=== PATIENT | female | born 1985 | race Caucasian/White ===

== ENCOUNTER 2016-07-09 18:15 | Emergency (ER) | payer MEDICAID ==
[2016-07-09 19:13] VITALS: BP 118/78
[2016-07-09] MEDS ORDERED: predniSONE TAB* 20 MG PO ONE (19:43)
--- NOTE | 2016-07-09 19:48 | UC ---
Respiratory Complaint HPI - HPI Summary HPI Summary: Coughing x 2 weeks. Denies nasal congestion or ST, has had 2 temps above 99 but below 100. Has asthma, is using inhaler 1-2 times per day. - History of Current Complaint Chief Complaint: UCGeneralIllness Stated Complaint: NAUSEA, DIARRHEA, COUGH Time Seen by Provider: 07/09/16 19:31 Hx Obtained From: Patient Hx Last Menstrual Period: 04/08/16 ?: No Onset/Duration: Gradual Onset, Lasting Weeks Timing: Constant Severity Initially: Mild Severity Currently: Mild Character: Cough: Productive Aggravating Factors: Exertion, Deep Breaths Alleviating Factors: Bronchodilator Associated Signs And Symptoms: Negative: Fever, Chills, URI, Nasal Congestion - Allergies/Home Medications Allergies/Adverse Reactions: Allergies Allergy/AdvReac Type Severity Reaction Status Date / Time Metoprolol Allergy Unknown Rash Verified 07/09/16 19:13 Trazodone Allergy Unknown Unknown Verified 07/09/16 19:13 Reaction Details Amoxicillin Allergy Unknown Verified 07/09/16 19:13 Reaction Details Cefaclor Allergy Unknown Verified 07/09/16 19:13 Reaction Details Clavulanic Acid Allergy Unknown Verified 07/09/16 19:13 Reaction Details Lamotrigine Allergy Rash Verified 07/09/16 19:13 [place] Flavor Allergy Unknown Verified 07/09/16 19:13 Reaction Details Penicillins Allergy Unknown Verified 07/09/16 19:13 Reaction Details Quetiapine Allergy Tachycardia Verified 07/09/16 19:13 Sulfa Antibiotics Allergy Rash Verified 07/09/16 19:13 Sulfamethoxazole Allergy Rash Verified 07/09/16 19:13 w/Trimethoprim [From Bactrim] Risperidone [From Risperdal] AdvReac Unknown Rash Verified 07/09/16 19:13 PMH/Surg Hx/FS Hx/Imm Hx Endocrine History Of: Denies: Diabetes Cardiovascular History Of: Denies: Hypertension, Pacemaker/ICD, Congestive Heart Failure, Deep Vein Thrombosis Respiratory History Of: Reports: Asthma, Pneumonia Denies: COPD, Pulmonary Embolism GI/ History Of: Denies: Ulcer, Gastrointestinal Bleed, Gall Bladder Disease, Renal Disease Neurological History Of: Denies: TIA, CVA, Dementia, Seizures, Migraine - patient denied Psychological History Of: Reports: Anxiety, Depression, Bipolar Disorder, Schizophrenia Cancer History Of: Denies: Lung Cancer Other History Of: Negative For: Anticoagulant Therapy - Surgical History Surgical History: Yes Surgery Procedure, Year, and Place: Left Knee. Left Foot (2009) - Family History Known Family History: Positive: Hypertension, Diabetes, Other - mother from cancer, HLD - Social History Lives: Alone Alcohol Use: states she has approximately 1-2 alcoholic drinks about 2-4 times per month Alcohol Amount: 1-2 drinks Substance Use Type: None Substance Use Comment - Amount & Last Used: Denies. Smoking Status (MU): Heavy Every Day Tobacco Smoker Type: Cigarettes Amount Used/How Often: reports 1 PPD Length of Time of Smoking/Using Tobacco: SINCE AGE 11 Y.O. Have You Smoked in the Last Year: Yes Household Exposure Type: Cigarettes - Immunization History Most Recent Influenza Vaccination: 2013 Most Recent Tetanus Shot: UTD Most Recent Pneumonia Vaccination: 2013 Review of Systems Constitutional: Negative Skin: Negative Eyes: Negative ENT: Negative Respiratory: Shortness Of Breath, Cough Cardiovascular: Negative Gastrointestinal: Negative Genitourinary: Negative Motor: Negative Neurovascular: Negative Musculoskeletal: Negative Neurological: Negative Psychological: Negative All Other Systems Reviewed And Are Negative: Yes Physical Exam Triage Information Reviewed: Yes Appearance: Well-Appearing, No Pain Distress, Obese Vital Signs: Initial Vital Signs Temp 98.5 F 07/09/16 19:09 Pulse 104 07/09/16 19:09 Resp 16 07/09/16 19:09 BP 118/78 07/09/16 19:09 Pulse Ox 99 07/09/16 19:09 Vital Signs Reviewed: Yes Eye Exam: Normal Eyes: Positive: Conjunctiva Clear ENT Exam: Normal ENT: Positive: Normal ENT inspection, Hearing grossly normal, Pharynx normal, TMs normal Dental Exam: Normal Neck exam: Normal Neck: Positive: Supple, Nontender, No Lymphadenopathy Respiratory: Positive: Chest non-tender, Lungs clear, Normal breath sounds, No respiratory distress, No accessory muscle use Cardiovascular Exam: Normal Cardiovascular: Positive: RRR, No Murmur Musculoskeletal Exam: Normal Neurological Exam: Normal Psychological Exam: Normal Skin Exam: Normal UC Diagnostic Evaluation - Laboratory O2 Sat by Pulse Oximetry: 99 Respiratory Course/Dx - Differential Dx/Diagnosis Provider Diagnoses: post viral cough. bronchospasm Discharge - Discharge Plan Condition: Stable Disposition: HOME Prescriptions: Benzonatate CAP* [Tessalon CAP*] 100 mg PO TID PRN #30 cap PRN Reason: Cough predniSONE TAB* [Deltasone TAB*] 50 mg PO DAILY #5 tab Patient Education Materials: Bronchospasm (ED) Referrals: Pam MCFARLANE,Collins Conte [Primary Care Provider] - If Needed Additional Instructions: POST-VIRAL COUGH: A very common cause of persistent cough is called "post-viral cough syndrome." During a viral infection, the virus can irritate your bronchial tubes. Then even after the infection is over, you may continue to cough. Your cough is left over from your recent viral infection. You do not show evidence of a continuing viral infection,bronchitis or pneumonia. You do not need antibiotics at this time. It may be helpful to use inhaled cool mist, throat lozenges, cough medication or bronchial inhalers to open up your bronchial tubes. We expect you will be improved in a week or two. Please get back to us if you have fever, chest pain, colored sputum, blood in the sputum, wheezing or shortness of breath.
== END 2016-07-09 19:51 | disposition home or self-care (01) ==
LOC: UCCORT 18:15
DX: R05 Cough (principal); J98.01 Acute bronchospasm; Z32.02 Encounter for pregnancy test, result negative; Z88.1 Allergy status to other antibiotic agents; Z88.0 Allergy status to penicillin; Z88.2 Allergy status to sulfonamides; Z88.8 Allergy status to other drugs, medicaments and biological substances; F17.210 Nicotine dependence, cigarettes, uncomplicated
CPT/HCPCS: 81025; 99212; G0463; J7512

== ENCOUNTER 2016-07-29 19:27 | Inpatient (IN) | payer MEDICAID ==
[2016-07-29] MEDS ORDERED: Mouth Piece, Nicotine* 1 EACH CARTRIDGE INH PRN (20:04)
--- NOTE | 2016-07-29 21:38 | ED ---
Ck Fine Billy, scribed for Bc Simon MD on 07/29/16 at 2021 . Psychiatric Complaint - HPI Summary HPI Summary: Patient is a 31 year-old female coming to [facility] with her complaining of SI, depression, anxiety, and fearfulness. She states that her symptoms are very similar to previous episodes. However, she states that she is not hearing voices as usual. - History Of Current Complaint Chief Complaint: EDMentalHealth Time Seen by Provider: 07/29/16 20:18 Accompanied By: Hx Obtained From: Patient Hx Last Menstrual Period: 04/08/16 Onset/Duration: Gradual Onset Timing: Constant Severity Initially: Moderate Severity Currently: Moderate Character: Depressed, Fearful, Anxious Aggravating Factor(s): Nothing Alleviating Factor(s): Nothing Associated Signs And Symptoms: Negative: Hallucinating Related History: Positive For: Prior Psychiatric Issues Has Suicidal: Reports: Thoughts - Allergies/Home Medications Allergies/Adverse Reactions: Allergies Allergy/AdvReac Type Severity Reaction Status Date / Time Metoprolol Allergy Unknown Rash Verified 07/09/16 19:13 Trazodone Allergy Unknown Unknown Verified 07/09/16 19:13 Reaction Details Amoxicillin Allergy Unknown Verified 07/09/16 19:13 Reaction Details Cefaclor Allergy Unknown Verified 07/09/16 19:13 Reaction Details Clavulanic Acid Allergy Unknown Verified 07/09/16 19:13 Reaction Details Lamotrigine Allergy Rash Verified 07/09/16 19:13 [place] Flavor Allergy Unknown Verified 07/09/16 19:13 Reaction Details Penicillins Allergy Unknown Verified 07/09/16 19:13 Reaction Details Quetiapine Allergy Tachycardia Verified 07/09/16 19:13 Sulfa Antibiotics Allergy Rash Verified 07/09/16 19:13 Sulfamethoxazole Allergy Rash Verified 07/09/16 19:13 w/Trimethoprim [From Bactrim] Risperidone [From Risperdal] AdvReac Unknown Rash Verified 07/09/16 19:13 Home Medications: Home Medications Albuterol HFA INHALER* [Ventolin HFA Inhaler*] 1 puff INH Q4H PRN 07/29/16 [ History Confirmed 07/29/16] PMH/Surg Hx/FS Hx/Imm Hx Endocrine/Hematology History: Denies: Hx Anticoagulant Therapy, Hx Diabetes, Hx Anemia, Hx Unexplained Bleeding Cardiovascular History: Reports: Other Cardiovascular Problems/Disorders - chest pain Respiratory History: Reports: Hx Asthma, Hx Chronic Bronchitis, Hx Pneumonia, Other Respiratory Problems/Disorders - Bronchitis GI History: Reports: Hx Gastroesophageal Reflux Disease History: Denies: Hx Renal Disease Musculoskeletal History: Reports: Hx Arthritis - Left shoulder, Hx Fibromyalgia - denies currently bothering her, Hx Tendonitis Sensory History: Reports: Hx Contacts or Glasses Opthamlomology History: Reports: Hx Contacts or Glasses Neurological History: Reports: Hx Headaches Psychiatric History: Reports: Hx Anxiety, Hx Attention Deficit Hyperactivity Disorder, Hx Depression, Hx Post Traumatic Stress Disorder, Hx Inpatient Treatment, Hx Community Mental Health Tx, Hx Schizophrenia, Hx Bipolar Disorder , Hx Suicide Attempt, Hx of Violent Episodes Against Others - Surgical History Surgery Procedure, Year, and Place: Left Knee. Left Foot (2009) Hx Anesthesia Reactions: No Infectious Disease History: Yes Infectious Disease History: Reports: Hx of Known/Suspected MRSA - 3 years ago Denies: Hx Hepatitis, Hx Shingles, Hx Tuberculosis, Hx Known/Suspected VRE, Hx Known/Suspected VRSA, History Other Infectious Disease, Traveled Outside the [place] in Last 30 Days - Family History Known Family History: Positive: Hypertension, Diabetes, Other - mother from cancer, HLD - Social History Alcohol Use: Occasionally Alcohol Amount: 1-2 drinks Hx Substance Use: No Substance Use Type: Reports: None Substance Use Comment - Amount & Last Used: Denies. Hx Tobacco Use: Yes Smoking Status (MU): Heavy Every Day Tobacco Smoker Type: Cigarettes Amount Used/How Often: reports 1 PPD Length of Time of Smoking/Using Tobacco: SINCE AGE 11 Y.O. Have You Smoked in the Last Year: Yes Review of Systems All Other Systems Reviewed And Are Negative: Yes Physical Exam - Summary Physical Exam Summary: VITAL SIGNS: Reviewed. GENERAL: Patient is an obese female who is lying comfortable in the stretcher. Patient is not in any acute respiratory distress. HEAD AND FACE: No signs of trauma. No ecchymosis, hematomas or skull depressions. No sinus tenderness. EYES: PERRLA, EOMI x 2, No injected conjunctiva, no nystagmus. EARS: Hearing grossly intact. Ear canals and tympanic membranes are within normal limits. MOUTH: Oropharynx within normal limits. NECK: Supple, trachea is midline, no adenopathy, no JVD, no carotid bruit, no c- spine tenderness, neck with full ROM. CHEST: Symmetric, no tenderness at palpation LUNGS: Clear to auscultation bilaterally. No wheezing or crackles. CVS: Regular rate and rhythm, S1 and S2 present, no murmurs or gallops appreciated. ABDOMEN: Soft, non-tender. No signs of distention. No rebound no guarding, and no masses palpated. Bowel sounds are normal. EXTREMITIES: FROM in all major joints, no edema, no cyanosis or clubbing. NEURO: Alert and oriented x 3. No acute neurological deficits. Speech is normal and follows commands. SKIN: Dry and warm PSYCH: Depressed, quiet, positive suicidal thoughts and plan. No homicidal thoughts or plan. No signs of psychosis or pressure speech. No tangential speech. Triage Information Reviewed: Yes Vital Signs On Initial Exam: Initial Vitals Temp Pulse Resp BP Pulse Ox 98.4 F 117 16 153/87 100 07/29/16 19:38 07/29/16 19:38 07/29/16 19:38 07/29/16 19:38 07/29/16 19:38 Vital Signs Reviewed: Yes - Roddy Coma Scale Coma Scale Total: 15 Diagnostics - Vital Signs Vital Signs Temp Pulse Resp BP Pulse Ox 07/29/16 19:38 98.4 F 117 16 153/87 100 - Laboratory Lab Statement: Any lab studies that have been ordered have been reviewed, and results considered in the medical decision making process. Course/Dx - Course Assessment/Plan: Patient is a 31 year-old female coming to [facility] with her complaining of SI, depression, anxiety, and fearfulness. She states that her symptoms are very similar to previous episodes. However, she states that she is not hearing voices as usual. Medically clear for MHE. No bloodwork was done because it had already been done yesterday. Seen by Dr. Page, who admitted the patient to the psychiatric unit for further workup and management. - Differential Dx/Clinical Impression Differential Diagnosis/HQI/PQRI: Positive: Depression, Suicide Attempt, Suicidal Ideation Provider Diagnosis: Suicidal ideation Discharge - Discharge Plan Condition: Stable Disposition: ADMITTED TO [facility] documentation as recorded by the Ck pringle Billy accurately reflects the service I personally performed and the decisions made by me, Bc Simon MD.
[2016-07-30 08:25] VITALS: BP 126/84
[2016-07-30] MEDS: Nicotine Inhaler* 10 MG AMP INH PRN ×3 (09:22→16:42)
[2016-07-30] MEDS ORDERED: hydrOXYzine HCL TAB* 50 MG PO PRN (14:18)
[2016-07-30] MEDS ORDERED: Albuterol HFA INHALER* 8 gm MDI INH PRN (14:18)
[2016-07-30] MEDS: Gabapentin CAP(*) 300 MG PO SCH ×2 (14:38→20:11)
[2016-07-30] MEDS: clonazePAM TAB(*) 1 MG PO SCH (14:39)
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
[2016-07-30] MEDS: Ibuprofen TAB* 400 MG PO PRN (18:36)
[2016-07-30] MEDS: Haloperidol TAB* 5 MG PO SCH (20:10)
[2016-07-30] MEDS: Benztropine TAB* 1 MG PO SCH (20:11)
[2016-07-30] MEDS ORDERED: chlorproMAZINE TAB* 200 MG PO SCH (21:00)
[2016-07-31] MEDS: Benztropine TAB* 1 MG PO SCH (08:32)
[2016-07-31] MEDS: Haloperidol TAB* 5 MG PO SCH (08:33)
[2016-07-31] MEDS: clonazePAM TAB(*) 1 MG PO SCH (08:34)
[2016-07-31] MEDS: Gabapentin CAP(*) 300 MG PO SCH ×2 (08:34→13:44)
[2016-07-31] MEDS: Nicotine Inhaler* 10 MG AMP INH PRN ×3 (08:36→15:32)
[2016-07-31] MEDS: Ibuprofen TAB* 400 MG PO PRN (09:17)
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
== END 2016-07-31 16:15 | disposition home or self-care (01) | DRG 750 ==
LOC: ED 19:27 → BSU 20:14
PROVIDERS: ADMIT Psychiatry & Neurology Psychiatry; ATTEND Psychiatry & Neurology Psychiatry
DX: F25.1 Schizoaffective disorder, depressive type (principal); R45.851 Suicidal ideations; F43.10 Post-traumatic stress disorder, unspecified; F60.3 Borderline personality disorder; J45.909 Unspecified asthma, uncomplicated; F41.9 Anxiety disorder, unspecified; G47.00 Insomnia, unspecified; K21.9 Gastro-esophageal reflux disease without esophagitis; M13.812 Other specified arthritis, left shoulder; M79.7 Fibromyalgia; F90.9 Attention-deficit hyperactivity disorder, unspecified type; F31.9 Bipolar disorder, unspecified; F17.210 Nicotine dependence, cigarettes, uncomplicated; Z63.9 Problem related to primary support group, unspecified; Z91.410 Personal history of adult physical and sexual abuse; Z88.0 Allergy status to penicillin; Z88.2 Allergy status to sulfonamides; Z88.8 Allergy status to other drugs, medicaments and biological substances; Z88.1 Allergy status to other antibiotic agents; Z87.01 Personal history of pneumonia (recurrent); Z80.9 Family history of malignant neoplasm, unspecified; Z83.3 Family history of diabetes mellitus; Z82.49 Family history of ischemic heart disease and other diseases of the circulatory system
CPT/HCPCS: 99222; 99238; A9270-GY

== ENCOUNTER 2016-08-21 21:09 | Emergency (ER) | payer MEDICAID ==
[2016-08-21 22:03] LABS: Hematocrit 42 % (35-47); Hemoglobin 13.8 g/dl (12.0-16.0); Mean Corpuscular HGB Conc 33 g/dl (31-36); Mean Corpuscular Hemoglobin 27 pg (27-31); Mean Corpuscular Volume 83 fL (80-97); Mean Platelet Volume 8 um3 (7.4-10.4); Red Blood Count 5.03 10^6/ul (4.0-5.4); Red Cell Distribution Width 14 % (10.5-15); White Blood Count 15.4 10^3/ul (3.5-10.8)
[2016-08-21 22:08] LABS: Urine Bacteria 1+ (Absent); Urine Bilirubin Negative (Negative); Urine Glucose Negative (Negative); Urine Nitrite Negative (Negative)
[2016-08-21 22:15] LABS: ALT 16 U/L (7-52); AST 22 U/L (13-39); Albumin 4.3 g/dL (3.2-5.2); Alkaline Phosphatase 89 U/L (34-104); Anion Gap 9 mmol/L (2-11); BUN/Creatinine Ratio 8.7 (8-20); Blood Urea Nitrogen 8 mg/dL (6-24); CO2 Carbon Dioxide 24 mmol/L (22-32); Calcium 9.9 mg/dL (8.6-10.3); Chloride 103 mmol/L (101-111); EGFR African American 92.2 (>60); EGFR Non-African American 71.7 (>60); Globulin 3.2 g/dL (2-4); Glucose 139 mg/dL (70-100); Potassium 3.6 mmol/L (3.5-5.0); Sodium 136 mmol/L (133-145); Total Protein 7.5 g/dL (6.4-8.9)
[2016-08-21 22:18] LABS: Benzodiazepine Urine Screen None Detected (None Detect)
[2016-08-21 22:52] LABS: Acetaminophen < 15 mcg/mL; Alcohol < 10 mg/dL (<10); Salicylate < 2.50 mg/dL (<30)
[2016-08-21 23:03] LABS: TSH (Thyroid Stimulating Horm) 1.77 mcIU/mL (0.34-5.60)
[2016-08-22] MEDS ORDERED: Mouth Piece, Nicotine* 1 EACH CARTRIDGE INH ONE (05:36)
[2016-08-22] MEDS ORDERED: Nicotine Inhaler* 10 MG AMP INH ONE (05:36)
[2016-08-22] MEDS ORDERED: Mouth Piece, Nicotine* 1 EACH CARTRIDGE ONE (05:39)
--- NOTE | 2016-08-22 06:14 | ED ---
Naa Fine Salem, scribed for David Núñez on 08/21/16 at 2155 . Psychiatric Complaint - HPI Summary HPI Summary: Patient is 31 y/o female wo presents to the ED for depression. She reports hearing voices who are telling her to kill herself, but she denies SI. Her PMHx is significant for schizophrenia. Her FHx is significant for depression and anxiety (father). - History Of Current Complaint Chief Complaint: EDMentalHealth Time Seen by Provider: 08/21/16 21:36 Hx Obtained From: Patient Hx Last Menstrual Period: 04/08/16 Onset/Duration: Gradual Onset Severity Initially: Moderate Severity Currently: Moderate Character: Depressed Aggravating Factor(s): Nothing Alleviating Factor(s): Nothing Has Suicidal: Reports: Thoughts - Voices.. Denies: With A Plan - Allergies/Home Medications Allergies/Adverse Reactions: Allergies Allergy/AdvReac Type Severity Reaction Status Date / Time Metoprolol Allergy Unknown Rash Verified 07/30/16 08:59 Trazodone Allergy Unknown Unknown Verified 07/30/16 08:59 Reaction Details Amoxicillin Allergy Unknown Verified 07/30/16 08:59 Reaction Details Cefaclor Allergy Unknown Verified 07/30/16 08:59 Reaction Details Clavulanic Acid Allergy Unknown Verified 07/30/16 08:59 Reaction Details Lamotrigine Allergy Rash Verified 07/30/16 08:59 Rolly Flavor Allergy Unknown Verified 07/30/16 08:59 Reaction Details Penicillins Allergy Unknown Verified 07/30/16 08:59 Reaction Details Quetiapine Allergy Tachycardia Verified 07/30/16 08:59 Sulfa Antibiotics Allergy Rash Verified 07/30/16 08:59 Sulfamethoxazole Allergy Rash Verified 07/30/16 08:59 w/Trimethoprim [From Bactrim] Risperidone [From Risperdal] AdvReac Unknown Rash Verified 07/30/16 08:59 Home Medications: Home Medications Haloperidol TAB* [Haldol TAB*] 5 mg PO BID 08/21/16 [History Confirmed 08/21/16] clonazePAM TAB(*) [Klonopin TAB(*)] 1 mg PO BID MDD 3 08/21/16 [History Confirmed 08/21/16] PMH/Surg Hx/FS Hx/Imm Hx Endocrine/Hematology History: Denies: Hx Anticoagulant Therapy, Hx Diabetes, Hx Anemia, Hx Unexplained Bleeding Cardiovascular History: Reports: Other Cardiovascular Problems/Disorders - chest pain Denies: Hx Aneurysm, Hx Angina, Hx Angioplasty, Hx Auto Implanted Cardiovert Defib, Hx Cardiac Arrest, Hx Cardiomegaly, Hx Congenital Heart Disease, Hx Congestive Heart Failure, Hx Coronary Artery Disease, Hx Deep Vein Thrombosis, Hx Embolism, Hx Hypercholesterolemia, Hx Hypotension, Hx Hypertension, Hx Pacemaker/ICD, Hx Peripheral Vascular Disease, Hx Rheumatic Fever, Hx Syncope, Hx Valvular Heart Disease Respiratory History: Reports: Hx Asthma, Hx Chronic Bronchitis, Hx Pneumonia, Other Respiratory Problems/Disorders - Bronchitis Denies: Hx Chronic Obstructive Pulmonary Disease (COPD), Hx Cystic Fibrosis, Hx Lung Cancer, Hx Pleural Effusion, Hx Pulmonary Edema, Hx Pulmonary Embolism, Hx Sleep Apnea GI History: Reports: Hx Gastroesophageal Reflux Disease Denies: Hx Cirrhosis, Hx Crohn's Disease, Hx Diverticulosis, Hx Gall Bladder Disease, Hx Gastrointestinal Bleed, Hx Hiatal Hernia, Hx Irritable Bowel, Hx Jaundice, Hx Obstructive Bowel, Hx Ileostomy, Hx Pyloric Stenosis, Hx Ulcer, Other GI Disorders History: Denies: Hx Renal Disease Musculoskeletal History: Reports: Hx Arthritis - Left shoulder, Hx Fibromyalgia - denies currently bothering her, Hx Tendonitis Denies: Hx Back Problems, Hx Bursitis, Hx Congenital Bone Abnormalities, Hx Gout, Hx Orthopedic Injury, Hx Osteoporosis, Hx Scoliosis, Other Musculoskeletal History Sensory History: Reports: Hx Contacts or Glasses Denies: Hx Cataracts, Hx Eye Injury, Hx Eye Prosthesis, Hx Glaucoma, Hx Legally Blind, Hx Macular Degeneration, Hx Vision Problem, Other Sensory Impairments Opthamlomology History: Reports: Hx Contacts or Glasses Denies: Hx Cataracts, Hx Eye Injury, Hx Eye Prosthesis, Hx Glaucoma, Hx Legally Blind, Hx Macular Degeneration, Hx Vision Problem, Other Sensory Impairments Neurological History: Reports: Hx Headaches Denies: Hx Dementia, Hx Developmental Delay, Hx Migraine - patient denied, Hx Nerve Disease, Hx Seizures, Hx Spinal Cord Injury, Hx Transient Ischemic Attacks (TIA), Other Neuro Impairments/Disorders Psychiatric History: Reports: Hx Anxiety, Hx Attention Deficit Hyperactivity Disorder, Hx Depression, Hx Post Traumatic Stress Disorder, Hx Inpatient Treatment, Hx Community Mental Health Tx, Hx Schizophrenia, Hx Bipolar Disorder , Hx Suicide Attempt, Hx of Violent Episodes Against Others Denies: Hx Eating Disorder, Hx Panic Disorder, Hx Substance Abuse, Other Psychiatric Issues/Disorders - Surgical History Surgery Procedure, Year, and Place: Left Knee. Left Foot (2009) Hx Anesthesia Reactions: No Infectious Disease History: No Infectious Disease History: Reports: Hx of Known/Suspected MRSA - 3 years ago Denies: Hx Hepatitis, Hx Shingles, Hx Tuberculosis, Hx Known/Suspected VRE, Hx Known/Suspected VRSA, History Other Infectious Disease, Traveled Outside the [place] in Last 30 Days - Family History Known Family History: Positive: Hypertension, Diabetes, Other - mother from cancer, HLD - Social History Alcohol Use: Occasionally Alcohol Amount: 1-2 drinks Hx Substance Use: No Substance Use Type: Reports: None Substance Use Comment - Amount & Last Used: Denies. Hx Tobacco Use: Yes Smoking Status (MU): Heavy Every Day Tobacco Smoker Type: Cigarettes Amount Used/How Often: reports 1/2 PPD Length of Time of Smoking/Using Tobacco: SINCE AGE 11 Y.O. Have You Smoked in the Last Year: Yes Review of Systems Negative: Fever Positive: Depressed All Other Systems Reviewed And Are Negative: Yes Physical Exam Triage Information Reviewed: Yes Vital Signs On Initial Exam: Initial Vitals Temp Pulse Resp BP Pulse Ox 98.4 F 133 22 139/76 97 08/21/16 21:38 08/21/16 21:38 08/21/16 21:38 08/21/16 21:38 08/21/16 21:38 Vital Signs Reviewed: Yes Appearance: Positive: Well-Appearing, No Pain Distress Skin: Positive: Warm, Skin Color Reflects Adequate Perfusion, Dry Head/Face: Positive: Normal Head/Face Inspection Eyes: Positive: EOMI, SHANON Neck: Positive: Supple, Nontender Respiratory/Lung Sounds: Positive: Clear to Auscultation, Breath Sounds Present Cardiovascular: Positive: RRR, Pulses are Symmetrical in both Upper and Lower Extremities Abdomen Description: Positive: Nontender, Soft Bowel Sounds: Positive: Present Musculoskeletal: Positive: Normal, Strength/ROM Intact Neurological: Positive: Normal, Sensory/Motor Intact, Alert, Oriented to Person Place, Time Psychiatric: Positive: Depressed Diagnostics - Vital Signs Vital Signs Temp Pulse Resp BP Pulse Ox 08/21/16 21:38 98.4 F 133 22 139/76 97 - Laboratory Lab Results: Lab Results 08/21/16 08/21/16 08/21/16 Range/Units 21:30 21:30 21:30 WBC 15.4 H (3.5-10.8) 10^3/ul RBC 5.03 (4.0-5.4) 10^6/ul Hgb 13.8 (12.0-16.0) g/dl Hct 42 (35-47) % MCV 83 (80-97) fL MCH 27 (27-31) pg MCHC 33 (31-36) g/dl RDW 14 (10.5-15) % Plt Count 351 (150-450) 10^3/ul MPV 8 (7.4-10.4) um3 Neut % (Auto) 67.8 (38-83) % Lymph % (Auto) 22.2 L (25-47) % [place] % (Auto) 5.5 (1-9) % Eos % (Auto) 3.3 (0-6) % Baso % (Auto) 1.2 (0-2) % Absolute Neuts (auto) 10.4 H (1.5-7.7) 10^3/ul Absolute Lymphs (auto) 3.4 (1.0-4.8) 10^3/ul Absolute Monos (auto) 0.9 H (0-0.8) 10^3/ul Absolute Eos (auto) 0.5 (0-0.6) 10^3/ul Absolute Basos (auto) 0.2 (0-0.2) 10^3/ul Absolute Nucleated RBC 0 10^3/ul Nucleated RBC % 0 Sodium 136 (133-145) mmol/L Potassium 3.6 (3.5-5.0) mmol/L Chloride 103 (101-111) mmol/L Carbon Dioxide 24 (22-32) mmol/L Anion Gap 9 (2-11) mmol/L BUN 8 (6-24) mg/dL Creatinine 0.92 (0.51-0.95) mg/dL Est GFR ( Amer) 92.2 (>60) Est GFR (Non-Af Amer) 71.7 (>60) BUN/Creatinine Ratio 8.7 (8-20) Glucose 139 H (70-100) mg/dL Calcium 9.9 (8.6-10.3) mg/dL Total Bilirubin 0.20 (0.2-1.0) mg/dL AST 22 (13-39) U/L ALT 16 (7-52) U/L Alkaline Phosphatase 89 (34-104) U/L Total Protein 7.5 (6.4-8.9) g/dL Albumin 4.3 (3.2-5.2) g/dL Globulin 3.2 (2-4) g/dL Albumin/Globulin Ratio 1.3 (1-3) TSH 1.77 (0.34-5.60) mcIU/mL Beta HCG, Quant < 0.60 mIU/mL Urine Color Yellow Urine Appearance Clear Urine pH 5.0 (5-9) Ur Specific [place] 1.009 L (1.010-1.030) Urine Protein Negative (Negative) Urine Ketones Negative (Negative) Urine Blood Negative (Negative) Urine Nitrate Negative (Negative) Urine Bilirubin Negative (Negative) Urine Urobilinogen Negative (Negative) Ur Leukocyte Esterase Trace H (Negative) Urine WBC (Auto) Trace(0-5/hpf) (Absent) Urine RBC (Auto) Trace(0-2/hpf) (Absent) Ur Squamous Epith Cells Present H (Absent) Urine Bacteria 1+ H (Absent) Urine Glucose Negative (Negative) Salicylates < 2.50 (<30) mg/dL Urine Opiates Screen (None Detect) Acetaminophen < 15 mcg/mL Ur Barbiturates Screen (None Detect) Ur Phencyclidine Scrn (None Detect) Ur Amphetamines Screen (None Detect) U Benzodiazepines Scrn (None Detect) Urine Cocaine Screen (None Detect) U Cannabinoids Screen (None Detect) Serum Alcohol < 10 (<10) mg/dL 08/21/16 Range/Units 21:30 WBC (3.5-10.8) 10^3/ul RBC (4.0-5.4) 10^6/ul Hgb (12.0-16.0) g/dl Hct (35-47) % MCV (80-97) fL MCH (27-31) pg MCHC (31-36) g/dl RDW (10.5-15) % Plt Count (150-450) 10^3/ul MPV (7.4-10.4) um3 Neut % (Auto) (38-83) % Lymph % (Auto) (25-47) % [place] % (Auto) (1-9) % Eos % (Auto) (0-6) % Baso % (Auto) (0-2) % Absolute Neuts (auto) (1.5-7.7) 10^3/ul Absolute Lymphs (auto) (1.0-4.8) 10^3/ul Absolute Monos (auto) (0-0.8) 10^3/ul Absolute Eos (auto) (0-0.6) 10^3/ul Absolute Basos (auto) (0-0.2) 10^3/ul Absolute Nucleated RBC 10^3/ul Nucleated RBC % Sodium (133-145) mmol/L Potassium (3.5-5.0) mmol/L Chloride (101-111) mmol/L Carbon Dioxide (22-32) mmol/L Anion Gap (2-11) mmol/L BUN (6-24) mg/dL Creatinine (0.51-0.95) mg/dL Est GFR ( Amer) (>60) Est GFR (Non-Af Amer) (>60) BUN/Creatinine Ratio (8-20) Glucose (70-100) mg/dL Calcium (8.6-10.3) mg/dL Total Bilirubin (0.2-1.0) mg/dL AST (13-39) U/L ALT (7-52) U/L Alkaline Phosphatase (34-104) U/L Total Protein (6.4-8.9) g/dL Albumin (3.2-5.2) g/dL Globulin (2-4) g/dL Albumin/Globulin Ratio (1-3) TSH (0.34-5.60) mcIU/mL Beta HCG, Quant mIU/mL Urine Color Urine Appearance Urine pH (5-9) Ur Specific [place] (1.010-1.030) Urine Protein (Negative) Urine Ketones (Negative) Urine Blood (Negative) Urine Nitrate (Negative) Urine Bilirubin (Negative) Urine Urobilinogen (Negative) Ur Leukocyte Esterase (Negative) Urine WBC (Auto) (Absent) Urine RBC (Auto) (Absent) Ur Squamous Epith Cells (Absent) Urine Bacteria (Absent) Urine Glucose (Negative) Salicylates (<30) mg/dL Urine Opiates Screen None detected (None Detect) Acetaminophen mcg/mL Ur Barbiturates Screen None detected (None Detect) Ur Phencyclidine Scrn None detected (None Detect) Ur Amphetamines Screen None detected (None Detect) U Benzodiazepines Scrn None detected (None Detect) Urine Cocaine Screen None detected (None Detect) U Cannabinoids Screen None detected (None Detect) Serum Alcohol (<10) mg/dL Result Diagrams: 08/21/16 21:30 08/21/16 21:30 Lab Statement: Any lab studies that have been ordered have been reviewed, and results considered in the medical decision making process. Course/Dx - Course Assessment/Plan: Waiting on mental health evaluation. - Differential Dx/Clinical Impression Provider Diagnosis: Suicidal ideation, Depression Discharge - Discharge Plan Condition: Stable Disposition: OTHER Discharge Disposition Comment: signed out to Dr Simms Referrals: Pam MCFARLANE,Collins Conte [Primary Care Provider] - The documentation as recorded by the Naa pringle Salem accurately reflects the service I personally performed and the decisions made by , David Núñez.
[2016-08-22 11:38] VITALS: BP 130/60
== END 2016-08-22 11:37 | disposition home or self-care (01) ==
LOC: ED 21:09
DX: R45.851 Suicidal ideations (principal); F32.9 Major depressive disorder, single episode, unspecified; Z88.0 Allergy status to penicillin; F17.210 Nicotine dependence, cigarettes, uncomplicated
CPT/HCPCS: 36415; 80053; 80307; 80320; 80329; 81003; 81015; 84443; 84702; 85025; 87086; 99284; A9270-GY; G0480

== ENCOUNTER 2016-09-10 17:53 | Emergency (ER) | payer MEDICAID ==
[2016-09-10 18:01] VITALS: BP 150/105
[2016-09-10 19:42] LABS: Hematocrit 42 % (35-47); Hemoglobin 13.8 g/dl (12.0-16.0); Mean Corpuscular HGB Conc 33 g/dl (31-36); Mean Corpuscular Hemoglobin 27 pg (27-31); Mean Corpuscular Volume 82 fL (80-97); Mean Platelet Volume 8 um3 (7.4-10.4); Red Blood Count 5.15 10^6/ul (4.0-5.4); Red Cell Distribution Width 14 % (10.5-15); White Blood Count 11.9 10^3/ul (3.5-10.8)
[2016-09-10 19:52] LABS: Acetaminophen < 15 mcg/mL; Alcohol < 10 mg/dL (<10); Salicylate < 2.50 mg/dL (<30)
[2016-09-10 19:53] LABS: ALT 22 U/L (7-52); AST 23 U/L (13-39); Albumin 4.3 g/dL (3.2-5.2); Alkaline Phosphatase 92 U/L (34-104); Anion Gap 5 mmol/L (2-11); BUN/Creatinine Ratio 13.2 (8-20); Blood Urea Nitrogen 9 mg/dL (6-24); CO2 Carbon Dioxide 29 mmol/L (22-32); Calcium 9.7 mg/dL (8.6-10.3); Chloride 103 mmol/L (101-111); EGFR African American 130.7 (>60); EGFR Non-African American 101.6 (>60); Globulin 3.2 g/dL (2-4); Glucose 101 mg/dL (70-100); Potassium 3.8 mmol/L (3.5-5.0); Sodium 137 mmol/L (133-145); Total Protein 7.5 g/dL (6.4-8.9)
[2016-09-10 20:03] LABS: TSH (Thyroid Stimulating Horm) 1.11 mcIU/mL (0.34-5.60)
[2016-09-10 20:06] LABS: Benzodiazepine Urine Screen None Detected (None Detect)
[2016-09-10 20:08] LABS: Urine Bacteria Absent (Absent); Urine Bilirubin Negative (Negative); Urine Glucose Negative (Negative); Urine Nitrite Negative (Negative)
--- NOTE | 2016-09-10 20:29 | ED ---
Babatunde, DoctorYudelka, scribed for Mimi Cohen MD on 09/10/16 at 2014 . Psychiatric Complaint - HPI Summary HPI Summary: 31 year old female arrived to [facility] after reporting desire to overdose at 16:45 today. She contacted her family members and friends, and was brought into [facility] after her father informed the police of her condition. She did not have suicidal ideations or report plans to OD on any specific drug or substance. She indicates that she has been "fairly stable for the past few days," and reports that she no longer has any desire to overdose. She denies any other symptoms. She has a PMHx of Bipolar Disorder, Schizophrenia, Borderline Personality Disorder, PTSD, and Depression. Additionally, she is a heavy smoker and lives with her . - History Of Current Complaint Chief Complaint: EDMentalHealth Hx Obtained From: Patient Hx Last Menstrual Period: 04/08/16 Onset/Duration: Gradual Onset, Resolved Severity Initially: Moderate Severity Currently: Moderate Alleviating Factor(s): Other - spontaneous Related History: Positive For: Prior Psychiatric Issues Has Suicidal: Denies: Thoughts - Allergies/Home Medications Allergies/Adverse Reactions: Allergies Allergy/AdvReac Type Severity Reaction Status Date / Time Metoprolol Allergy Unknown Rash Verified 07/30/16 08:59 Trazodone Allergy Unknown Unknown Verified 07/30/16 08:59 Reaction Details Amoxicillin Allergy Unknown Verified 07/30/16 08:59 Reaction Details Cefaclor Allergy Unknown Verified 07/30/16 08:59 Reaction Details Clavulanic Acid Allergy Unknown Verified 07/30/16 08:59 Reaction Details Lamotrigine Allergy Rash Verified 07/30/16 08:59 Rolly Flavor Allergy Unknown Verified 07/30/16 08:59 Reaction Details Penicillins Allergy Unknown Verified 07/30/16 08:59 Reaction Details Quetiapine Allergy Tachycardia Verified 07/30/16 08:59 Sulfa Antibiotics Allergy Rash Verified 07/30/16 08:59 Sulfamethoxazole Allergy Rash Verified 07/30/16 08:59 w/Trimethoprim [From Bactrim] Risperidone [From Risperdal] AdvReac Unknown Rash Verified 07/30/16 08:59 PMH/Surg Hx/FS Hx/Imm Hx Endocrine/Hematology History: Denies: Hx Anticoagulant Therapy, Hx Diabetes, Hx Anemia, Hx Unexplained Bleeding Cardiovascular History: Reports: Other Cardiovascular Problems/Disorders - chest pain Denies: Hx Aneurysm, Hx Angina, Hx Angioplasty, Hx Auto Implanted Cardiovert Defib, Hx Cardiac Arrest, Hx Cardiomegaly, Hx Congenital Heart Disease, Hx Congestive Heart Failure, Hx Coronary Artery Disease, Hx Deep Vein Thrombosis, Hx Embolism, Hx Hypercholesterolemia, Hx Hypotension, Hx Hypertension, Hx Pacemaker/ICD, Hx Peripheral Vascular Disease, Hx Rheumatic Fever, Hx Syncope, Hx Valvular Heart Disease Respiratory History: Reports: Hx Asthma, Hx Chronic Bronchitis, Hx Pneumonia, Other Respiratory Problems/Disorders - Bronchitis Denies: Hx Chronic Obstructive Pulmonary Disease (COPD), Hx Cystic Fibrosis, Hx Lung Cancer, Hx Pleural Effusion, Hx Pulmonary Edema, Hx Pulmonary Embolism, Hx Sleep Apnea GI History: Reports: Hx Gastroesophageal Reflux Disease Denies: Hx Cirrhosis, Hx Crohn's Disease, Hx Diverticulosis, Hx Gall Bladder Disease, Hx Gastrointestinal Bleed, Hx Hiatal Hernia, Hx Irritable Bowel, Hx Jaundice, Hx Obstructive Bowel, Hx Ileostomy, Hx Pyloric Stenosis, Hx Ulcer, Other GI Disorders History: Denies: Hx Renal Disease Musculoskeletal History: Reports: Hx Arthritis - Left shoulder, Hx Fibromyalgia - denies currently bothering her, Hx Tendonitis Denies: Hx Back Problems, Hx Bursitis, Hx Congenital Bone Abnormalities, Hx Gout, Hx Orthopedic Injury, Hx Osteoporosis, Hx Scoliosis, Other Musculoskeletal History Sensory History: Reports: Hx Contacts or Glasses Denies: Hx Cataracts, Hx Eye Injury, Hx Eye Prosthesis, Hx Glaucoma, Hx Legally Blind, Hx Macular Degeneration, Hx Vision Problem, Other Sensory Impairments Opthamlomology History: Reports: Hx Contacts or Glasses Denies: Hx Cataracts, Hx Eye Injury, Hx Eye Prosthesis, Hx Glaucoma, Hx Legally Blind, Hx Macular Degeneration, Hx Vision Problem, Other Sensory Impairments Neurological History: Reports: Hx Headaches Denies: Hx Dementia, Hx Developmental Delay, Hx Migraine - patient denied, Hx Nerve Disease, Hx Seizures, Hx Spinal Cord Injury, Hx Transient Ischemic Attacks (TIA), Other Neuro Impairments/Disorders Psychiatric History: Reports: Hx Anxiety, Hx Attention Deficit Hyperactivity Disorder, Hx Depression, Hx Post Traumatic Stress Disorder, Hx Inpatient Treatment, Hx Community Mental Health Tx, Hx Schizophrenia, Hx Bipolar Disorder , Hx Suicide Attempt, Hx of Violent Episodes Against Others Denies: Hx Eating Disorder, Hx Panic Disorder, Hx Substance Abuse, Other Psychiatric Issues/Disorders - Surgical History Surgery Procedure, Year, and Place: Left Knee. Left Foot (2009) Hx Anesthesia Reactions: No Infectious Disease History: No Infectious Disease History: Reports: Hx of Known/Suspected MRSA - 3 years ago Denies: Hx Hepatitis, Hx Shingles, Hx Tuberculosis, Hx Known/Suspected VRE, Hx Known/Suspected VRSA, History Other Infectious Disease, Traveled Outside the [place] in Last 30 Days - Family History Known Family History: Positive: Hypertension, Diabetes, Other - mother from cancer, HLD - Social History Lives: With Family - with and in close proximity to father Alcohol Use: Occasionally Alcohol Amount: 1-2 drinks Hx Substance Use: No Substance Use Type: Reports: None Substance Use Comment - Amount & Last Used: Denies. Hx Tobacco Use: Yes Smoking Status (MU): Heavy Every Day Tobacco Smoker Type: Cigarettes Amount Used/How Often: reports 1/2 PPD Length of Time of Smoking/Using Tobacco: SINCE AGE 11 Y.O. Have You Smoked in the Last Year: Yes Review of Systems Negative: Fever Positive: Other - desire to overdose, since respolved All Other Systems Reviewed And Are Negative: Yes Physical Exam Triage Information Reviewed: Yes Vital Signs On Initial Exam: Initial Vitals Temp Pulse Resp BP Pulse Ox 97.2 F 61 20 150/105 100 09/10/16 17:58 09/10/16 17:58 09/10/16 17:58 09/10/16 17:58 09/10/16 17:58 Vital Signs Reviewed: Yes Appearance: Positive: Well-Appearing, No Pain Distress Skin: Positive: Warm, Skin Color Reflects Adequate Perfusion, Dry Eyes: Positive: EOMI, SHANON ENT: Positive: Pharynx normal, TMs normal Neck: Positive: Supple, Nontender Respiratory/Lung Sounds: Positive: Clear to Auscultation, Breath Sounds Present. Negative: Rales, Rhonchi, Wheezes Cardiovascular: Positive: RRR. Negative: Murmur, Rub Abdomen Description: Positive: Nontender, Soft, Other: - no rebound. Negative: Distended, Guarding Bowel Sounds: Positive: Present Musculoskeletal: Positive: Strength/ROM Intact. Negative: Edema Left, Edema Right Neurological: Positive: Sensory/Motor Intact, Alert, Oriented to Person Place, Time, CN Intact II-III Psychiatric: Positive: Affect/Mood Appropriate Diagnostics - Vital Signs Vital Signs Temp Pulse Resp BP Pulse Ox 09/10/16 17:58 97.2 F 61 20 150/105 100 - Laboratory Lab Results: Lab Results 09/10/16 09/10/16 09/10/16 Range/Units 18:14 18:14 18:27 WBC 11.9 H (3.5-10.8) 10^3/ul RBC 5.15 (4.0-5.4) 10^6/ul Hgb 13.8 (12.0-16.0) g/dl Hct 42 (35-47) % MCV 82 (80-97) fL MCH 27 (27-31) pg MCHC 33 (31-36) g/dl RDW 14 (10.5-15) % Plt Count 375 (150-450) 10^3/ul MPV 8 (7.4-10.4) um3 Neut % (Auto) 67.7 (38-83) % Lymph % (Auto) 21.0 L (25-47) % [place] % (Auto) 6.7 (1-9) % Eos % (Auto) 4.0 (0-6) % Baso % (Auto) 0.6 (0-2) % Absolute Neuts (auto) 8.0 H (1.5-7.7) 10^3/ul Absolute Lymphs (auto) 2.5 (1.0-4.8) 10^3/ul Absolute Monos (auto) 0.8 (0-0.8) 10^3/ul Absolute Eos (auto) 0.5 (0-0.6) 10^3/ul Absolute Basos (auto) 0.1 (0-0.2) 10^3/ul Absolute Nucleated RBC 0.01 10^3/ul Nucleated RBC % 0.1 Sodium (133-145) mmol/L Potassium (3.5-5.0) mmol/L Chloride (101-111) mmol/L Carbon Dioxide (22-32) mmol/L Anion Gap (2-11) mmol/L BUN (6-24) mg/dL Creatinine (0.51-0.95) mg/dL Est GFR ( Amer) (>60) Est GFR (Non-Af Amer) (>60) BUN/Creatinine Ratio (8-20) Glucose (70-100) mg/dL Calcium (8.6-10.3) mg/dL Total Bilirubin (0.2-1.0) mg/dL AST (13-39) U/L ALT (7-52) U/L Alkaline Phosphatase (34-104) U/L Total Protein (6.4-8.9) g/dL Albumin (3.2-5.2) g/dL Globulin (2-4) g/dL Albumin/Globulin Ratio (1-3) TSH (0.34-5.60) mcIU/mL Urine Color Yellow Urine Appearance Clear Urine pH 6.0 (5-9) Ur Specific [place] 1.010 (1.010-1.030) Urine Protein Negative (Negative) Urine Ketones Negative (Negative) Urine Blood Negative (Negative) Urine Nitrate Negative (Negative) Urine Bilirubin Negative (Negative) Urine Urobilinogen Negative (Negative) Ur Leukocyte Esterase 1+ H (Negative) Urine WBC (Auto) Trace(0-5/hpf) (Absent) Urine RBC (Auto) Absent (Absent) Ur Squamous Epith Cells Present H (Absent) Urine Bacteria Absent (Absent) Urine Glucose Negative (Negative) Urine Ascorbic Acid * H (Negative) Salicylates (<30) mg/dL Urine Opiates Screen None detected (None Detect) Acetaminophen mcg/mL Ur Barbiturates Screen None detected (None Detect) Ur Phencyclidine Scrn None detected (None Detect) Ur Amphetamines Screen None detected (None Detect) U Benzodiazepines Scrn None detected (None Detect) Urine Cocaine Screen None detected (None Detect) U Cannabinoids Screen None detected (None Detect) Serum Alcohol (<10) mg/dL 09/10/16 Range/Units 18:27 WBC (3.5-10.8) 10^3/ul RBC (4.0-5.4) 10^6/ul Hgb (12.0-16.0) g/dl Hct (35-47) % MCV (80-97) fL MCH (27-31) pg MCHC (31-36) g/dl RDW (10.5-15) % Plt Count (150-450) 10^3/ul MPV (7.4-10.4) um3 Neut % (Auto) (38-83) % Lymph % (Auto) (25-47) % [place] % (Auto) (1-9) % Eos % (Auto) (0-6) % Baso % (Auto) (0-2) % Absolute Neuts (auto) (1.5-7.7) 10^3/ul Absolute Lymphs (auto) (1.0-4.8) 10^3/ul Absolute Monos (auto) (0-0.8) 10^3/ul Absolute Eos (auto) (0-0.6) 10^3/ul Absolute Basos (auto) (0-0.2) 10^3/ul Absolute Nucleated RBC 10^3/ul Nucleated RBC % Sodium 137 (133-145) mmol/L Potassium 3.8 (3.5-5.0) mmol/L Chloride 103 (101-111) mmol/L Carbon Dioxide 29 (22-32) mmol/L Anion Gap 5 (2-11) mmol/L BUN 9 (6-24) mg/dL Creatinine 0.68 (0.51-0.95) mg/dL Est GFR ( Amer) 130.7 (>60) Est GFR (Non-Af Amer) 101.6 (>60) BUN/Creatinine Ratio 13.2 (8-20) Glucose 101 H (70-100) mg/dL Calcium 9.7 (8.6-10.3) mg/dL Total Bilirubin 0.20 (0.2-1.0) mg/dL AST 23 (13-39) U/L ALT 22 (7-52) U/L Alkaline Phosphatase 92 (34-104) U/L Total Protein 7.5 (6.4-8.9) g/dL Albumin 4.3 (3.2-5.2) g/dL Globulin 3.2 (2-4) g/dL Albumin/Globulin Ratio 1.3 (1-3) TSH 1.11 (0.34-5.60) mcIU/mL Urine Color Urine Appearance Urine pH (5-9) Ur Specific [place] (1.010-1.030) Urine Protein (Negative) Urine Ketones (Negative) Urine Blood (Negative) Urine Nitrate (Negative) Urine Bilirubin (Negative) Urine Urobilinogen (Negative) Ur Leukocyte Esterase (Negative) Urine WBC (Auto) (Absent) Urine RBC (Auto) (Absent) Ur Squamous Epith Cells (Absent) Urine Bacteria (Absent) Urine Glucose (Negative) Urine Ascorbic Acid (Negative) Salicylates < 2.50 (<30) mg/dL Urine Opiates Screen (None Detect) Acetaminophen < 15 mcg/mL Ur Barbiturates Screen (None Detect) Ur Phencyclidine Scrn (None Detect) Ur Amphetamines Screen (None Detect) U Benzodiazepines Scrn (None Detect) Urine Cocaine Screen (None Detect) U Cannabinoids Screen (None Detect) Serum Alcohol < 10 (<10) mg/dL Result Diagrams: 09/10/16 18:27 09/10/16 18:27 Lab Statement: Any lab studies that have been ordered have been reviewed, and results considered in the medical decision making process. Course/Dx - Course Course Of Treatment: 31 yo female here not suicidal at this time but suddenly felt she might take an overdose late this afternoon. She denies any new stressors and says things have been fine lately. Pt seen by mhe and sent home with her father - Differential Dx/Clinical Impression Provider Diagnosis: Mood disorder Discharge - Discharge Plan Condition: Stable Disposition: HOME Referrals: Pam MCFARLANE,Collins Conte [Primary Care Provider] - The documentation as recorded by the Doctor pringle Tahera accurately reflects the service I personally performed and the decisions made by me, Mimi Cohen MD.
== END 2016-09-10 20:37 | disposition home or self-care (01) ==
LOC: ED 17:53
DX: F31.9 Bipolar disorder, unspecified (principal); F41.9 Anxiety disorder, unspecified; J45.909 Unspecified asthma, uncomplicated; F20.9 Schizophrenia, unspecified; F43.10 Post-traumatic stress disorder, unspecified; F60.3 Borderline personality disorder; Z88.2 Allergy status to sulfonamides; F17.210 Nicotine dependence, cigarettes, uncomplicated; Z88.0 Allergy status to penicillin
CPT/HCPCS: 36415; 80053; 80307; 80320; 80329; 81003; 81015; 84443; 85025; 87086; 99283; G0480

== ENCOUNTER 2016-10-06 11:41 | Inpatient (IN) | payer MEDICAID ==
[2016-10-06 12:25] LABS: Hematocrit 43 % (35-47); Hemoglobin 13.9 g/dl (12.0-16.0); Mean Corpuscular HGB Conc 33 g/dl (31-36); Mean Corpuscular Hemoglobin 27 pg (27-31); Mean Corpuscular Volume 82 fL (80-97); Mean Platelet Volume 8 um3 (7.4-10.4); Red Blood Count 5.18 10^6/ul (4.0-5.4); Red Cell Distribution Width 15 % (10.5-15); White Blood Count 9.2 10^3/ul (3.5-10.8)
[2016-10-06 12:45] LABS: ALT 10 U/L (7-52); AST 16 U/L (13-39); Albumin 4.3 g/dL (3.2-5.2); Alkaline Phosphatase 94 U/L (34-104); Anion Gap 6 mmol/L (2-11); BUN/Creatinine Ratio 8.5 (8-20); Blood Urea Nitrogen 6 mg/dL (6-24); CO2 Carbon Dioxide 25 mmol/L (22-32); Calcium 9.4 mg/dL (8.6-10.3); Chloride 105 mmol/L (101-111); EGFR African American 124.3 (>60); EGFR Non-African American 96.7 (>60); Globulin 3.2 g/dL (2-4); Glucose 129 mg/dL (70-100); Potassium 3.8 mmol/L (3.5-5.0); Sodium 136 mmol/L (133-145); Total Protein 7.5 g/dL (6.4-8.9)
[2016-10-06 12:50] LABS: Urine Bacteria 1+ (Absent); Urine Bilirubin Negative (Negative); Urine Glucose Negative (Negative); Urine Nitrite Negative (Negative)
[2016-10-06 13:01] LABS: Benzodiazepine Urine Screen None Detected (None Detect)
[2016-10-06 13:08] LABS: Acetaminophen < 15 mcg/mL; Alcohol < 10 mg/dL (<10); Salicylate < 2.50 mg/dL (<30)
[2016-10-06] MEDS ORDERED: Albuterol HFA INHALER* 8 gm MDI INH PRN (14:16)
[2016-10-06] MEDS ORDERED: Mouth Piece, Nicotine* 1 EACH CARTRIDGE ONE (16:30)
[2016-10-06] MEDS: Nicotine Inhaler* 10 MG AMP INH PRN ×2 (16:31→18:54)
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
[2016-10-06] MEDS: clonazePAM TAB(*) 0.5 MG PO PRN (18:53)
[2016-10-06] MEDS: Benztropine TAB* 1 MG PO SCH (20:14)
[2016-10-06] MEDS: Gabapentin CAP(*) 300 MG PO SCH (20:14)
[2016-10-06] MEDS: chlorproMAZINE TAB* 200 MG PO SCH (20:15)
[2016-10-06] MEDS: Haloperidol TAB* 5 MG PO SCH (20:17)
[2016-10-06] MEDS ORDERED: Nicotine Patch Removal NOTE PATCH OFF SCH (21:00)
[2016-10-07] MEDS ORDERED: Nicotine PATCH 7 MG/24 HR* PATCH TRANSDERM SCH (08:00)
[2016-10-07] MEDS ORDERED: Nicotine PATCH 14 MG/24 HR* PATCH TRANSDERM SCH (08:00)
[2016-10-07] MEDS ORDERED: Nicotine PATCH 21 MG/24 HR* PATCH TRANSDERM SCH (08:00)
[2016-10-07] MEDS: Benztropine TAB* 1 MG PO SCH ×2 (09:08→19:34)
[2016-10-07] MEDS: Gabapentin CAP(*) 300 MG PO SCH ×3 (09:09→19:33)
[2016-10-07] MEDS: Albuterol HFA INHALER* 8 gm MDI INH SCH (09:09)
[2016-10-07] MEDS: Haloperidol TAB* 5 MG PO SCH ×2 (09:09→19:34)
[2016-10-07] MEDS: Nicotine Inhaler* 10 MG AMP INH PRN ×2 (09:10→18:41)
[2016-10-07] MEDS: clonazePAM TAB(*) 0.5 MG PO PRN (13:06)
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
[2016-10-07] MEDS: chlorproMAZINE TAB* 200 MG PO SCH (19:34)
[2016-10-08] MEDS: Gabapentin CAP(*) 300 MG PO SCH ×3 (08:03→19:59)
[2016-10-08] MEDS: Nicotine Inhaler* 10 MG AMP INH PRN (08:04)
[2016-10-08] MEDS: Benztropine TAB* 1 MG PO SCH ×2 (08:04→20:00)
[2016-10-08] MEDS: Haloperidol TAB* 5 MG PO SCH ×2 (08:04→19:59)
[2016-10-08 09:05] VITALS: BP 125/67
[2016-10-08] MEDS: clonazePAM TAB(*) 0.5 MG PO PRN (10:21)
[2016-10-08] MEDS: Albuterol HFA INHALER* 8 gm MDI INH SCH (10:44)
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
[2016-10-08] MEDS: clonazePAM TAB(*) 1 MG PO PRN (17:33)
[2016-10-08] MEDS: chlorproMAZINE TAB* 200 MG PO SCH (20:00)
[2016-10-09] MEDS: Haloperidol TAB* 5 MG PO SCH (08:14)
[2016-10-09] MEDS: Gabapentin CAP(*) 300 MG PO SCH ×2 (08:14→14:06)
[2016-10-09] MEDS: Albuterol HFA INHALER* 8 gm MDI INH SCH (08:15)
[2016-10-09] MEDS: Benztropine TAB* 1 MG PO SCH (08:15)
[2016-10-09] MEDS: Nicotine Inhaler* 10 MG AMP INH PRN (08:26)
[2016-10-09] MEDS: clonazePAM TAB(*) 1 MG PO PRN (09:32)
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
== END 2016-10-09 16:10 | disposition home or self-care (01) | DRG 750 ==
LOC: ED 11:41 → BSU 16:39
PROVIDERS: ADMIT Psychiatry & Neurology Psychiatry; ATTEND Psychiatry & Neurology Psychiatry
DX: F25.1 Schizoaffective disorder, depressive type (principal); F60.3 Borderline personality disorder; F43.10 Post-traumatic stress disorder, unspecified; M79.7 Fibromyalgia; J45.909 Unspecified asthma, uncomplicated; F17.210 Nicotine dependence, cigarettes, uncomplicated; Z79.1 Long term (current) use of non-steroidal anti-inflammatories (NSAID); Z79.899 Other long term (current) drug therapy; Z88.1 Allergy status to other antibiotic agents; Z88.8 Allergy status to other drugs, medicaments and biological substances; Z81.8 Family history of other mental and behavioral disorders; Z81.1 Family history of alcohol abuse and dependence
CPT/HCPCS: 36415; 80053; 80307; 80320; 80329; 81003; 81015; 84443; 85025; 87086; 99222; 99231; 99238; 99406; A9270-GY; G0480

== ENCOUNTER 2016-10-28 16:34 | Inpatient (IN) | payer MEDICAID ==
[2016-10-28 17:11] LABS: Urine Bacteria 1+ (Absent); Urine Bilirubin Negative (Negative); Urine Glucose Negative (Negative); Urine Nitrite Negative (Negative)
[2016-10-28 17:14] LABS: Hematocrit 46 % (35-47); Hemoglobin 14.8 g/dl (12.0-16.0); Mean Corpuscular HGB Conc 32 g/dl (31-36); Mean Corpuscular Hemoglobin 26 pg (27-31); Mean Corpuscular Volume 81 fL (80-97); Mean Platelet Volume 8 um3 (7.4-10.4); Red Blood Count 5.64 10^6/ul (4.0-5.4); Red Cell Distribution Width 15 % (10.5-15)
[2016-10-28 17:19] LABS: Benzodiazepine Urine Screen None Detected (None Detect)
[2016-10-28 17:32] LABS: ALT 13 U/L (7-52); AST 16 U/L (13-39); Albumin 4.5 g/dL (3.2-5.2); Alkaline Phosphatase 96 U/L (34-104); Anion Gap 8 mmol/L (2-11); BUN/Creatinine Ratio 9.4 (8-20); Blood Urea Nitrogen 6 mg/dL (6-24); CO2 Carbon Dioxide 25 mmol/L (22-32); Calcium 9.7 mg/dL (8.6-10.3); Chloride 103 mmol/L (101-111); EGFR African American 140.1 (>60); Globulin 3.4 g/dL (2-4); Glucose 98 mg/dL (70-100); Potassium 3.7 mmol/L (3.5-5.0); Sodium 136 mmol/L (133-145); Total Protein 7.9 g/dL (6.4-8.9)
[2016-10-28] MEDS ORDERED: LORazepam TAB(*) 1 MG PO ONE (17:41)
[2016-10-28] MEDS ORDERED: LORazepam TAB(*) 1 MG ONE (17:42)
[2016-10-28 17:52] LABS: Acetaminophen < 15 mcg/mL; Alcohol < 10 mg/dL (<10); Salicylate < 2.50 mg/dL (<30)
[2016-10-28 18:05] LABS: TSH (Thyroid Stimulating Horm) 0.87 mcIU/mL (0.34-5.60)
[2016-10-28] MEDS ORDERED: Al Hydrox/Mg Hydrox/Simet LIQ* 30 ML UDC PO PRN (21:06)
[2016-10-28] MEDS ORDERED: Albuterol HFA INHALER* 8 gm MDI INH PRN (21:57)
[2016-10-28] MEDS ORDERED: Mouth Piece, Nicotine* 1 EACH CARTRIDGE INH ONE (22:00)
[2016-10-29] MEDS: chlorproMAZINE TAB* 200 MG PO SCH ×2 (07:56→20:43)
[2016-10-29] MEDS: Benztropine TAB* 1 MG PO SCH ×3 (07:56→20:44)
[2016-10-29] MEDS: Haloperidol TAB* 5 MG PO SCH ×3 (07:57→20:43)
[2016-10-29] MEDS: Gabapentin CAP(*) 300 MG PO SCH ×4 (07:57→20:43)
[2016-10-29] MEDS ORDERED: Mouth Piece, Nicotine* 1 EACH CARTRIDGE ONE (08:03)
[2016-10-29] MEDS: clonazePAM TAB(*) 1 MG PO PRN ×2 (08:07→16:28)
[2016-10-29] MEDS: Nicotine Inhaler* 10 MG AMP INH PRN (08:07)
[2016-10-29] MEDS: Vitamin THERAPEUTIC TAB PO SCH (08:07)
[2016-10-29] MEDS: Albuterol HFA INHALER* 8 gm MDI INH SCH (11:10)
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
[2016-10-30] MEDS: Haloperidol TAB* 5 MG PO SCH ×2 (08:36→20:25)
[2016-10-30] MEDS: Gabapentin CAP(*) 300 MG PO SCH ×2 (08:36→20:24)
[2016-10-30] MEDS: Benztropine TAB* 1 MG PO SCH ×2 (08:37→20:25)
[2016-10-30] MEDS: Vitamin THERAPEUTIC TAB PO SCH (08:38)
[2016-10-30] MEDS: Albuterol HFA INHALER* 8 gm MDI INH SCH (09:45)
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
[2016-10-30] MEDS: Nicotine Inhaler* 10 MG AMP INH PRN (18:24)
[2016-10-30] MEDS: clonazePAM TAB(*) 1 MG PO PRN (18:39)
[2016-10-30] MEDS: Acetaminophen TAB* 325 MG PO PRN (18:40)
[2016-10-30] MEDS: chlorproMAZINE TAB* 200 MG PO SCH (20:26)
[2016-10-31] MEDS: Albuterol HFA INHALER* 8 gm MDI INH SCH (08:25)
[2016-10-31] MEDS: Vitamin THERAPEUTIC TAB PO SCH (08:26)
[2016-10-31] MEDS: Benztropine TAB* 1 MG PO SCH ×2 (08:26→20:04)
[2016-10-31] MEDS: Haloperidol TAB* 5 MG PO SCH ×2 (08:27→20:05)
[2016-10-31] MEDS: Gabapentin CAP(*) 300 MG PO SCH ×2 (08:27→20:05)
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
[2016-10-31] MEDS: Nicotine Inhaler* 10 MG AMP INH PRN ×2 (12:54→19:31)
[2016-10-31] MEDS: clonazePAM TAB(*) 1 MG PO PRN ×2 (12:56→18:04)
[2016-10-31] MEDS: chlorproMAZINE TAB* 200 MG PO SCH (20:04)
[2016-10-31] MEDS: Acetaminophen TAB* 325 MG PO PRN (23:51)
[2016-11-01] MEDS: Albuterol HFA INHALER* 8 gm MDI INH SCH (08:22)
[2016-11-01] MEDS: Benztropine TAB* 1 MG PO SCH ×2 (08:22→20:50)
[2016-11-01] MEDS: Haloperidol TAB* 5 MG PO SCH ×2 (08:23→20:49)
[2016-11-01] MEDS: Gabapentin CAP(*) 300 MG PO SCH ×2 (08:23→20:49)
[2016-11-01] MEDS: Vitamin THERAPEUTIC TAB PO SCH (08:26)
[2016-11-01] MEDS: Acetaminophen TAB* 325 MG PO PRN ×2 (13:20→16:59)
[2016-11-01] MEDS: Nicotine Inhaler* 10 MG AMP INH PRN (13:20)
[2016-11-01] MEDS: clonazePAM TAB(*) 1 MG PO PRN ×2 (15:22→17:33)
[2016-11-01] MEDS: chlorproMAZINE TAB* 200 MG PO SCH (20:49)
[2016-11-02 07:51] VITALS: BP 146/90
[2016-11-02] MEDS: Haloperidol TAB* 5 MG PO SCH (08:04)
[2016-11-02] MEDS: Benztropine TAB* 1 MG PO SCH (08:05)
[2016-11-02] MEDS: Gabapentin CAP(*) 300 MG PO SCH (08:05)
[2016-11-02] MEDS: Albuterol HFA INHALER* 8 gm MDI INH SCH (08:09)
[2016-11-02] MEDS: clonazePAM TAB(*) 1 MG PO PRN (08:10)
[2016-11-02] MEDS: Vitamin THERAPEUTIC TAB PO SCH (08:11)
[2016-11-02] MEDS: Nicotine Inhaler* 10 MG AMP INH PRN ×2 (08:11→12:48)
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
[2016-11-02] MEDS: Acetaminophen TAB* 325 MG PO PRN (12:46)
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
[2016-11-02] MEDS ORDERED: Gabapentin CAP(*) 300 MG PO SCH (21:00)
== END 2016-11-02 13:30 | disposition home or self-care (01) | DRG 750 ==
LOC: ED 16:34 → BSU 21:00 → ED 21:03
PROVIDERS: ADMIT Psychiatry & Neurology Psychiatry; ATTEND Psychiatry & Neurology Psychiatry
DX: F25.1 Schizoaffective disorder, depressive type (principal); R45.851 Suicidal ideations; F43.10 Post-traumatic stress disorder, unspecified; F60.3 Borderline personality disorder; M79.7 Fibromyalgia; J45.909 Unspecified asthma, uncomplicated; F17.210 Nicotine dependence, cigarettes, uncomplicated; Z62.810 Personal history of physical and sexual abuse in childhood; Z79.1 Long term (current) use of non-steroidal anti-inflammatories (NSAID); Z79.899 Other long term (current) drug therapy; Z88.1 Allergy status to other antibiotic agents; Z88.8 Allergy status to other drugs, medicaments and biological substances; Z81.8 Family history of other mental and behavioral disorders; Z81.1 Family history of alcohol abuse and dependence
CPT/HCPCS: 36415; 80053; 80307; 80320; 80329; 81003; 81015; 84443; 85025; 87086; 99222; 99231; 99238; 99406; A9270-GY; G0480

== ENCOUNTER 2016-11-09 10:45 | Inpatient (IN) | payer MEDICAID ==
[2016-11-09 11:48] LABS: Hematocrit 42 % (35-47); Hemoglobin 13.9 g/dl (12.0-16.0); Mean Corpuscular HGB Conc 33 g/dl (31-36); Mean Corpuscular Hemoglobin 26 pg (27-31); Mean Corpuscular Volume 81 fL (80-97); Mean Platelet Volume 8 um3 (7.4-10.4); Red Blood Count 5.24 10^6/ul (4.0-5.4); Red Cell Distribution Width 15 % (10.5-15); White Blood Count 10.5 10^3/ul (3.5-10.8)
[2016-11-09 11:49] LABS: Urine Bilirubin Negative (Negative); Urine Glucose Negative (Negative); Urine Nitrite Negative (Negative)
[2016-11-09 12:03] LABS: ALT 15 U/L (7-52); AST 18 U/L (13-39); Albumin 4.2 g/dL (3.2-5.2); Alkaline Phosphatase 111 U/L (34-104); Anion Gap 6 mmol/L (2-11); BUN/Creatinine Ratio 13.6 (8-20); Blood Urea Nitrogen 8 mg/dL (6-24); CO2 Carbon Dioxide 23 mmol/L (22-32); Calcium 9.4 mg/dL (8.6-10.3); Chloride 107 mmol/L (101-111); EGFR African American 153.9 (>60); EGFR Non-African American 119.7 (>60); Globulin 3.4 g/dL (2-4); Glucose 112 mg/dL (70-100); Potassium 3.9 mmol/L (3.5-5.0); Sodium 136 mmol/L (133-145); Total Protein 7.6 g/dL (6.4-8.9)
[2016-11-09 12:08] LABS: Benzodiazepine Urine Screen None Detected (None Detect)
[2016-11-09 12:48] LABS: Acetaminophen < 15 mcg/mL; Alcohol < 10 mg/dL (<10); Salicylate < 2.50 mg/dL (<30)
[2016-11-09 13:13] LABS: TSH (Thyroid Stimulating Horm) 0.79 mcIU/mL (0.34-5.60)
[2016-11-09] MEDS ORDERED: Nicotine GUM* 2 MG PO PRN (14:05)
[2016-11-09] MEDS ORDERED: Al Hydrox/Mg Hydrox/Simet LIQ* 30 ML UDC PO PRN (14:05)
[2016-11-09] MEDS ORDERED: Albuterol HFA INHALER* 8 gm MDI INH PRN (14:08)
[2016-11-09] MEDS ORDERED: Mouth Piece, Nicotine* 1 EACH CARTRIDGE INH ONE (14:30)
[2016-11-09] MEDS: Nicotine Inhaler* 10 MG AMP INH PRN (15:09)
[2016-11-09] MEDS: clonazePAM TAB(*) 1 MG PO PRN (18:01)
--- NOTE | 2016-11-09 18:23 | ED ---
Jacob Fine Benjamin, scribed for Nakul Man MD on 11/09/16 at 1148 . Psychiatric Complaint - HPI Summary HPI Summary: 31yo female c/o waking up today with screaming voices suggesting the pt to take suicidal attempts. Pt drinks but denies any other drug uses. Pt reports trouble sleeping. Hx of schizophrenia, ptsd, depression, and borderline personality. - History Of Current Complaint Chief Complaint: EDMentalHealth Time Seen by Provider: 11/09/16 11:34 Hx Last Menstrual Period: 04/08/16 - Allergies/Home Medications Allergies/Adverse Reactions: Allergies Allergy/AdvReac Type Severity Reaction Status Date / Time Metoprolol Allergy Unknown Rash Verified 11/09/16 15:27 Trazodone Allergy Unknown Unknown Verified 11/09/16 15:27 Reaction Details Amoxicillin Allergy Unknown Verified 11/09/16 15:27 Reaction Details Cefaclor Allergy Unknown Verified 11/09/16 15:27 Reaction Details Clavulanic Acid Allergy Unknown Verified 11/09/16 15:27 Reaction Details Lamotrigine Allergy Rash Verified 11/09/16 15:27 [place] Flavor Allergy Unknown Verified 11/09/16 15:27 Reaction Details Penicillins Allergy Unknown Verified 11/09/16 15:27 Reaction Details Quetiapine Allergy Tachycardia Verified 11/09/16 15:27 Sulfa Antibiotics Allergy Rash Verified 11/09/16 15:27 Sulfamethoxazole Allergy Rash Verified 11/09/16 15:27 w/Trimethoprim [From Bactrim] Risperidone [From Risperdal] AdvReac Unknown Rash Verified 11/09/16 15:27 Home Medications: Home Medications Gabapentin CAP(*) [Neurontin 400 mg CAP(*)] 800 mg PO BID 11/09/16 [History Confirmed 11/09/16] PMH/Surg Hx/FS Hx/Imm Hx Endocrine/Hematology History: Denies: Hx Anticoagulant Therapy, Hx Diabetes, Hx Anemia, Hx Unexplained Bleeding Cardiovascular History: Reports: Other Cardiovascular Problems/Disorders - chest pain Denies: Hx Aneurysm, Hx Angina, Hx Angioplasty, Hx Auto Implanted Cardiovert Defib, Hx Cardiac Arrest, Hx Cardiomegaly, Hx Congenital Heart Disease, Hx Congestive Heart Failure, Hx Coronary Artery Disease, Hx Deep Vein Thrombosis, Hx Embolism, Hx Hypercholesterolemia, Hx Hypotension, Hx Hypertension, Hx Pacemaker/ICD, Hx Peripheral Vascular Disease, Hx Rheumatic Fever, Hx Syncope, Hx Valvular Heart Disease Respiratory History: Reports: Hx Asthma, Hx Chronic Bronchitis, Hx Pneumonia, Other Respiratory Problems/Disorders - Bronchitis Denies: Hx Chronic Obstructive Pulmonary Disease (COPD), Hx Cystic Fibrosis, Hx Lung Cancer, Hx Pleural Effusion, Hx Pulmonary Edema, Hx Pulmonary Embolism, Hx Sleep Apnea GI History: Reports: Hx Gastroesophageal Reflux Disease Denies: Hx Cirrhosis, Hx Crohn's Disease, Hx Diverticulosis, Hx Gall Bladder Disease, Hx Gastrointestinal Bleed, Hx Hiatal Hernia, Hx Irritable Bowel, Hx Jaundice, Hx Obstructive Bowel, Hx Ileostomy, Hx Pyloric Stenosis, Hx Ulcer, Other GI Disorders History: Denies: Hx Renal Disease Musculoskeletal History: Reports: Hx Arthritis - Left shoulder, Hx Fibromyalgia - denies currently bothering her, Hx Tendonitis Denies: Hx Back Problems, Hx Bursitis, Hx Congenital Bone Abnormalities, Hx Gout, Hx Orthopedic Injury, Hx Osteoporosis, Hx Scoliosis, Other Musculoskeletal History Sensory History: Reports: Hx Contacts or Glasses Denies: Hx Cataracts, Hx Eye Injury, Hx Eye Prosthesis, Hx Glaucoma, Hx Legally Blind, Hx Macular Degeneration, Hx Vision Problem, Hx Hearing Aid, Other Sensory Impairments Opthamlomology History: Reports: Hx Contacts or Glasses Denies: Hx Cataracts, Hx Eye Injury, Hx Eye Prosthesis, Hx Glaucoma, Hx Legally Blind, Hx Macular Degeneration, Hx Vision Problem, Other Sensory Impairments Neurological History: Reports: Hx Headaches Denies: Hx Dementia, Hx Developmental Delay, Hx Migraine - patient denied, Hx Nerve Disease, Hx Seizures, Hx Spinal Cord Injury, Hx Transient Ischemic Attacks (TIA), Other Neuro Impairments/Disorders Psychiatric History: Reports: Hx Anxiety, Hx Attention Deficit Hyperactivity Disorder, Hx Depression, Hx Post Traumatic Stress Disorder, Hx Inpatient Treatment, Hx Community Mental Health Tx, Hx Schizophrenia, Hx Bipolar Disorder , Hx Suicide Attempt, Hx of Violent Episodes Against Others Denies: Hx Eating Disorder, Hx Panic Disorder, Hx Substance Abuse, Other Psychiatric Issues/Disorders - Surgical History Surgery Procedure, Year, and Place: Left Knee. Left Foot (2009) Hx Anesthesia Reactions: No Infectious Disease History: No Infectious Disease History: Reports: Hx of Known/Suspected MRSA - 3 years ago Denies: Hx Hepatitis, Hx Shingles, Hx Tuberculosis, Hx Known/Suspected VRE, Hx Known/Suspected VRSA, History Other Infectious Disease, Traveled Outside the [place] in Last 30 Days - Family History Known Family History: Positive: Hypertension, Diabetes, Other - Mother from cancer, HLD. Father has depression and anxiety - Social History Alcohol Use: None Alcohol Amount: 1-2 drinks Hx Substance Use: No Substance Use Type: Reports: None Substance Use Comment - Amount & Last Used: Denies. Hx Tobacco Use: Yes Smoking Status (MU): Heavy Every Day Tobacco Smoker Type: Cigarettes Amount Used/How Often: reports 1/2 PPD Length of Time of Smoking/Using Tobacco: SINCE AGE 11 Y.O. Have You Smoked in the Last Year: Yes Review of Systems Constitutional: Negative Eyes: Negative ENT: Negative Cardiovascular: Negative Respiratory: Negative Gastrointestinal: Negative Genitourinary: Negative Musculoskeletal: Negative Skin: Negative Neurological: Negative Positive: Depressed All Other Systems Reviewed And Are Negative: Yes Physical Exam - Summary Physical Exam Summary: The patient is well-nourished in no acute distress and in no acute pain. The skin is warm and dry and skin color reflects adequate perfusion.No cuts were noted in her arms. HEENT: The head is normocephalic and atraumatic. The pupils are equal and reactive. The conjunctivae are clear and without drainage. Nares are patent and without drainage. Mouth reveals moist mucous membranes and the throat is without erythema and exudate. The external ears are intact. The ear canals are patent and without drainage. The tympanic membranes are intact. Neck is supple with full range of motion and non-tender. There are no carotid bruits. There is no neck vein distension. Respiratory: Chest is non-tender. Lungs are clear to auscultation and breath sounds are symmetrical and equal. Cardiovascular: Hear is regular rate and rhythm. There is no murmur or rub auscultated. There is no peripheral edema and pulses are symmetrical and equal. Abdomen: The abdomen is soft and non-tender. There are normal bowel sounds heard in all four quadrants and there is no organomegaly palpated. Musculoskeletal: There is no back pain noted. Extremities are non-tender with full range of motion. There is good capillary refill. There is no peripheral edema or calf tenderness elicited. Neurological: Patient is alert and oriented to person, place and time. The patient has symmetrical motor strength in all four extremities. Cranial nerves are grossly intact. Deep tendon reflexes are symmetrical and equal in all four extremities. Psychiatric: The patient has an appropriate affect and does not exhibit any anxiety or depression. Triage Information Reviewed: Yes Vital Signs On Initial Exam: Initial Vitals Temp Pulse Resp BP Pulse Ox 98.1 F 117 20 151/83 100 11/09/16 10:46 11/09/16 10:46 11/09/16 10:46 11/09/16 10:46 11/09/16 10:46 Vital Signs Reviewed: Yes Diagnostics - Vital Signs Vital Signs Temp Pulse Resp BP Pulse Ox 11/09/16 10:48 98.1 F 112 20 151/83 99 11/09/16 10:46 98.1 F 117 20 151/83 100 - Laboratory Lab Results: Lab Results 11/09/16 11/09/16 11/09/16 Range/Units 10:55 10:55 10:55 WBC 10.5 (3.5-10.8) 10^3/ul RBC 5.24 (4.0-5.4) 10^6/ul Hgb 13.9 (12.0-16.0) g/dl Hct 42 (35-47) % MCV 81 (80-97) fL MCH 26 L (27-31) pg MCHC 33 (31-36) g/dl RDW 15 (10.5-15) % Plt Count 304 (150-450) 10^3/ul MPV 8 (7.4-10.4) um3 Neut % (Auto) 69.7 (38-83) % Lymph % (Auto) 18.6 L (25-47) % Lake % (Auto) 9.0 (1-9) % Eos % (Auto) 2.2 (0-6) % Baso % (Auto) 0.5 (0-2) % Absolute Neuts (auto) 7.3 (1.5-7.7) 10^3/ul Absolute Lymphs (auto) 2.0 (1.0-4.8) 10^3/ul Absolute Monos (auto) 0.9 H (0-0.8) 10^3/ul Absolute Eos (auto) 0.2 (0-0.6) 10^3/ul Absolute Basos (auto) 0.1 (0-0.2) 10^3/ul Absolute Nucleated RBC 0.01 10^3/ul Nucleated RBC % 0.1 Sodium 136 (133-145) mmol/L Potassium 3.9 (3.5-5.0) mmol/L Chloride 107 (101-111) mmol/L Carbon Dioxide 23 (22-32) mmol/L Anion Gap 6 (2-11) mmol/L BUN 8 (6-24) mg/dL Creatinine 0.59 (0.51-0.95) mg/dL Est GFR ( Amer) 153.9 (>60) Est GFR (Non-Af Amer) 119.7 (>60) BUN/Creatinine Ratio 13.6 (8-20) Glucose 112 H (70-100) mg/dL Calcium 9.4 (8.6-10.3) mg/dL Total Bilirubin 0.20 (0.2-1.0) mg/dL AST 18 (13-39) U/L ALT 15 (7-52) U/L Alkaline Phosphatase 111 H (34-104) U/L Total Protein 7.6 (6.4-8.9) g/dL Albumin 4.2 (3.2-5.2) g/dL Globulin 3.4 (2-4) g/dL Albumin/Globulin Ratio 1.2 (1-3) TSH 0.79 (0.34-5.60) mcIU/mL Beta HCG, Quant 0.60 mIU/mL Urine Color Straw Urine Appearance Clear Urine pH 6.0 (5-9) Ur Specific [place] 1.003 L (1.010-1.030) Urine Protein Negative (Negative) Urine Ketones Negative (Negative) Urine Blood Negative (Negative) Urine Nitrate Negative (Negative) Urine Bilirubin Negative (Negative) Urine Urobilinogen Negative (Negative) Ur Leukocyte Esterase Negative (Negative) Urine Glucose Negative (Negative) Salicylates < 2.50 (<30) mg/dL Urine Opiates Screen (None Detect) Acetaminophen < 15 mcg/mL Ur Barbiturates Screen (None Detect) Ur Phencyclidine Scrn (None Detect) Ur Amphetamines Screen (None Detect) U Benzodiazepines Scrn (None Detect) Urine Cocaine Screen (None Detect) U Cannabinoids Screen (None Detect) Serum Alcohol < 10 (<10) mg/dL 11/09/16 Range/Units 10:55 WBC (3.5-10.8) 10^3/ul RBC (4.0-5.4) 10^6/ul Hgb (12.0-16.0) g/dl Hct (35-47) % MCV (80-97) fL MCH (27-31) pg MCHC (31-36) g/dl RDW (10.5-15) % Plt Count (150-450) 10^3/ul MPV (7.4-10.4) um3 Neut % (Auto) (38-83) % Lymph % (Auto) (25-47) % Lake % (Auto) (1-9) % Eos % (Auto) (0-6) % Baso % (Auto) (0-2) % Absolute Neuts (auto) (1.5-7.7) 10^3/ul Absolute Lymphs (auto) (1.0-4.8) 10^3/ul Absolute Monos (auto) (0-0.8) 10^3/ul Absolute Eos (auto) (0-0.6) 10^3/ul Absolute Basos (auto) (0-0.2) 10^3/ul Absolute Nucleated RBC 10^3/ul Nucleated RBC % Sodium (133-145) mmol/L Potassium (3.5-5.0) mmol/L Chloride (101-111) mmol/L Carbon Dioxide (22-32) mmol/L Anion Gap (2-11) mmol/L BUN (6-24) mg/dL Creatinine (0.51-0.95) mg/dL Est GFR ( Amer) (>60) Est GFR (Non-Af Amer) (>60) BUN/Creatinine Ratio (8-20) Glucose (70-100) mg/dL Calcium (8.6-10.3) mg/dL Total Bilirubin (0.2-1.0) mg/dL AST (13-39) U/L ALT (7-52) U/L Alkaline Phosphatase (34-104) U/L Total Protein (6.4-8.9) g/dL Albumin (3.2-5.2) g/dL Globulin (2-4) g/dL Albumin/Globulin Ratio (1-3) TSH (0.34-5.60) mcIU/mL Beta HCG, Quant mIU/mL Urine Color Urine Appearance Urine pH (5-9) Ur Specific [place] (1.010-1.030) Urine Protein (Negative) Urine Ketones (Negative) Urine Blood (Negative) Urine Nitrate (Negative) Urine Bilirubin (Negative) Urine Urobilinogen (Negative) Ur Leukocyte Esterase (Negative) Urine Glucose (Negative) Salicylates (<30) mg/dL Urine Opiates Screen None detected (None Detect) Acetaminophen mcg/mL Ur Barbiturates Screen None detected (None Detect) Ur Phencyclidine Scrn None detected (None Detect) Ur Amphetamines Screen None detected (None Detect) U Benzodiazepines Scrn None detected (None Detect) Urine Cocaine Screen None detected (None Detect) U Cannabinoids Screen None detected (None Detect) Serum Alcohol (<10) mg/dL Result Diagrams: 11/09/16 10:55 11/09/16 10:55 Lab Statement: Any lab studies that have been ordered have been reviewed, and results considered in the medical decision making process. Course/Dx - Course Assessment/Plan: @11:46 - Medically cleared for Mental health evaluation. @14: 07 - Signed 9.13 paperwork for voluntary admission. - Differential Dx/Clinical Impression Differential Diagnosis/HQI/PQRI: Positive: Acute Psychosis, Depression, Suicidal Ideation Provider Diagnosis: Psychosis Discharge - Discharge Plan Condition: Stable [place] [place] The documentation as recorded by the Jacob pringle Benjamin accurately reflects the service I personally performed and the decisions made by , Nakul Man MD.
[2016-11-09] MEDS: Haloperidol TAB* 5 MG PO SCH (20:07)
[2016-11-09] MEDS: Benztropine TAB* 1 MG PO SCH (20:07)
[2016-11-09] MEDS: chlorproMAZINE TAB* 100 MG PO SCH (20:07)
[2016-11-09] MEDS: Gabapentin CAP(*) 400 MG PO SCH (20:07)
[2016-11-09] MEDS: clonazePAM TAB(*) 0.5 MG PO SCH (20:07)
[2016-11-10] MEDS: Haloperidol TAB* 5 MG PO SCH ×2 (08:04→20:41)
[2016-11-10] MEDS: Gabapentin CAP(*) 400 MG PO SCH ×2 (08:04→20:41)
[2016-11-10] MEDS: Benztropine TAB* 1 MG PO SCH ×2 (08:04→20:42)
[2016-11-10] MEDS: Vitamin THERAPEUTIC TAB PO SCH ×2 (08:04→08:08)
[2016-11-10] MEDS: clonazePAM TAB(*) 0.5 MG PO SCH ×2 (08:04→20:41)
[2016-11-10] MEDS: Nicotine Inhaler* 10 MG AMP INH PRN ×2 (08:07→12:35)
--- NOTE | 2016-11-10 11:33 | CONSULT ---
Consult Consult: Surgical consult dictated. Impression/Plan: Left wrist self-inflected laceration, approx. 2.5-3.0 cm, clean with no active bleeding noted. Two small minor abrasions to dorsum of left hand. Sensation and motor intact. Will plan on laceration repair at bedsite. Patient agreed to plans.
[2016-11-10] MEDS: clonazePAM TAB(*) 1 MG PO PRN (12:34)
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
[2016-11-10] MEDS: CloZAPine TAB* 25 MG TAB PO SCH ×2 (14:00→20:40)
--- NOTE | 2016-11-10 17:23 | CONS ---
CC: Dr. Josué Kruger CONSULTATION REPORT: DATE OF CONSULT: 11/10/16 PATIENT OF: Dr. Josué Kruger. REFERRED TO: Dr. González Langston. REASON FOR CONSULTATION: A self-inflicted laceration of the left arm. HISTORY OF PRESENT ILLNESS: Bree is a pleasant 31-year-old white female who was recently admitted to the Behavioral Health Unit with a long-standing history of schizoaffective disorder. The patien anil apparently presented to the hospital on a voluntary basis yesterday after her most recent discharg e from the psychiatric unit about a week ago due to complaints of auditory hallucinations and suicid al ideation with plans to cut herself. She reports feeling better now at this time of the consultat ion; however, earlier this morning, the patient had access to some michell that she used to cut hers elf. She was able to self-inflict laceration on her left wrist as well as 2 small abrasions on the dorsum of her left hand. She reports having very mild pain at this point; however, she complained o f significant pain at the time she cut herself as well as mild amount of bleeding. The patient becki es any suicidal ideation or plans at this time. As mentioned above, she has a long- standing histor y of schizoaffective disorder, borderline personality disorder, and PTSD. Given her ongoing symptom s, we were asked to see the patient for further evaluation of self-inflicted laceration in case we n eed any suturing or wound management. She denies any pain at this time. She denies any paresthesia s of the left hand or any sensory or motor deficit. She otherwise is a relatively healthy 31-year-o ld female with no significant physical past medical history with exception of her mental history wit h prior multiple admissions to the behavior floor. PAST MEDICAL HISTORY: Significant for recent hospitalization a week ago to the behavior floor. She has over 20 total hospitalizations related to her mental disorders. She denies any history of hear t, liver, lung, or kidney disease. CURRENT MEDICATIONS: Her current medications at home include: 1. Cogentin 0.5 mg p.o. b.i.d. 2. Gabapentin 800 mg twice daily. 3. Hydroxyzine 25 mg as needed for anxiety. 4. Haldol 5 mg b.i.d. 5. Thorazine 200 mg q.h.s. 6. Albuterol MDI 90 mcg as needed for wheezing or shortness of breath as well as ibuprofen as neede d for pain. ALLERGIES: She is allergic to METOPROLOL, TRAZODONE, AMOXICILLIN, CEFACLOR, and AUGMENTIN. FAMILY HISTORY: She reports family history of anxiety and depression on her father's side as well a s alcohol abuse. SOCIAL HISTORY: The patient currently lives in [place]. She is . She has no children. She denies smoking or alcohol intake. REVIEW OF SYSTEMS: See HPI. Otherwise negative. She denies any headache, dizziness, hallucination , syncope, or blurred vision. No chest pain, shortness of breath, wheezing, or hemoptysis. She den ies abdominal pain, nausea, vomiting, changes in the bowel habits, or bleeding per rectum. She becki es any history of blood disorders or easy bleeding. No flank pain, dysuria, hematuria, or urinary f requency. She denies fever, chills, weight loss, or palpitations. PHYSICAL EXAM: General: She is a pleasant, obese 31-year-old female in no acute distress or discom fort at the time of consultation. Vitals: Blood pressure 129/69, heart rate of 97, respirations 16 , temperature 98.4, and O2 sat is 100% on room air. HEENT: Sclerae anicteric. PERRLA. EOMs intac t. Neck: Supple. Trachea midline. No cervical adenopathy or thyromegaly. Lungs: Clear to auscul tation bilaterally. Heart: Regular rate and rhythm. Normal S1 and S2 with no murmurs. Back with normal curvature. No CVA tenderness. Breast Exam: Deferred at this time. Abdomen: Soft, nontende r, nondistended. No hernias, masses, or hepatosplenomegaly. Neurologic: Grossly intact. Extremit ies without cyanosis, clubbing, or edema. Examination of her left upper extremity revealed approxim ately 3 cm laceration on the palmar aspect of the left wrist approximately 3 cm in length, mildly de ep with no active bleeding and no visible tendon damage. Examination of the left hand also revealed 2 small abrasions on the dorsum of the hand with no active bleeding. There is no ecchymosis, erythe ma, or induration. Careful examination of the flexion and extension of her digits revealed intact mo tor function. ASSESSMENT: A 31-year-old female with long-standing history of schizoaffective disorder as well as auditory hallucination and suicidal ideation who had a self- inflicted left wrist laceration earlier this morning. PLAN: I went on and discussed with the patient the findings of the physical exam. Her wound appears to be clean and not actively bleeding at this time. I offered proceeding with a simple laceration repair at bedside. The rationale, indications, risks, and benefits of the procedure were discussed with her in details and she agreed to proceed. PROCEDURE: The wound was cleaned with Betadine and draped in a sterile fashion. 1% plain lidocaine approximately 5 cc total was infiltrated around the laceration on the ventral aspect of the left wri st. Area was examined carefully for any tendon involvement. However, it did not reach the depth, i t only included skin and minimal amount of subcutaneous fat. There was a very good hemostasis noted . Two sutures of 4-0 nylon suture was placed in an interrupted fashion. The wound was then washed carefully, covered with bacitracin ointment, and 4x4 dressing as well as 4-inch Kerlix wrap. The kailyn tient tolerated the procedure well. I discussed with the patient all the instructions regarding wound care. We will keep it dry for the next 48 hours and then the dressing may be removed and use bacitracin twice daily to the abrasion a nd the incision itself and sutures will be removed in 7 to 10 days. Thank you for this consultation. KAILYN COUCH [id number]/[facility] #: [id number]
[2016-11-10] MEDS: chlorproMAZINE TAB* 100 MG PO SCH (20:41)
[2016-11-11] MEDS: Haloperidol TAB* 5 MG PO SCH ×2 (08:11→20:36)
[2016-11-11] MEDS: Benztropine TAB* 1 MG PO SCH ×2 (08:11→20:37)
[2016-11-11] MEDS: CloZAPine TAB* 25 MG TAB PO SCH ×2 (08:11→20:36)
[2016-11-11] MEDS: clonazePAM TAB(*) 0.5 MG PO SCH ×2 (08:12→20:36)
[2016-11-11] MEDS: Gabapentin CAP(*) 400 MG PO SCH ×2 (08:12→20:35)
[2016-11-11] MEDS: Vitamin THERAPEUTIC TAB PO SCH (08:14)
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
[2016-11-11] MEDS: clonazePAM TAB(*) 1 MG PO PRN (19:03)
[2016-11-11] MEDS: Nicotine Inhaler* 10 MG AMP INH PRN (19:13)
[2016-11-11] MEDS: Acetaminophen TAB* 325 MG PO PRN ×2 (19:13→23:15)
[2016-11-11] MEDS: chlorproMAZINE TAB* 100 MG PO SCH (20:34)
[2016-11-12] MEDS: Gabapentin CAP(*) 400 MG PO SCH ×2 (08:27→20:06)
[2016-11-12] MEDS: Nicotine Inhaler* 10 MG AMP INH PRN ×3 (08:27→18:58)
[2016-11-12] MEDS: Haloperidol TAB* 5 MG PO SCH ×2 (08:28→21:06)
[2016-11-12] MEDS: CloZAPine TAB* 25 MG TAB PO SCH ×2 (08:28→20:06)
[2016-11-12] MEDS: clonazePAM TAB(*) 0.5 MG PO SCH ×2 (08:28→20:05)
[2016-11-12] MEDS: Benztropine TAB* 1 MG PO SCH ×2 (08:29→20:05)
[2016-11-12] MEDS: Vitamin THERAPEUTIC TAB PO SCH (08:30)
[2016-11-12] MEDS: clonazePAM TAB(*) 1 MG PO PRN (11:05)
[2016-11-12] MEDS ORDERED: Fluconazole 100 MG TAB* TAB PO ONE (11:21)
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
[2016-11-12] MEDS: Haloperidol TAB* 5 MG PO PRN ×2 (12:12→17:22)
[2016-11-12] MEDS ORDERED: Gabapentin CAP(*) 300 MG PO SCH (14:00)
[2016-11-12] MEDS: Acetaminophen TAB* 325 MG PO PRN (16:15)
[2016-11-12] MEDS: chlorproMAZINE TAB* 100 MG PO SCH (20:05)
[2016-11-12] MEDS: Clotrimazole 1% VAGINAL CREAM* 45 GM VAGINAL SCH (20:09)
[2016-11-13] MEDS: Nicotine Inhaler* 10 MG AMP INH PRN (07:28)
[2016-11-13] MEDS: Haloperidol TAB* 5 MG PO SCH ×2 (08:46→20:24)
[2016-11-13] MEDS: CloZAPine TAB* 25 MG TAB PO SCH ×2 (08:46→20:24)
[2016-11-13] MEDS: Benztropine TAB* 1 MG PO SCH ×2 (08:47→20:23)
[2016-11-13] MEDS: Gabapentin CAP(*) 400 MG PO SCH ×2 (08:47→20:24)
[2016-11-13] MEDS: clonazePAM TAB(*) 0.5 MG PO SCH ×2 (10:04→20:24)
[2016-11-13] MEDS: Vitamin THERAPEUTIC TAB PO SCH (10:07)
[2016-11-13] MEDS: Acetaminophen TAB* 325 MG PO PRN (10:19)
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
[2016-11-13] MEDS: clonazePAM TAB(*) 1 MG PO PRN (18:33)
[2016-11-13] MEDS: chlorproMAZINE TAB* 100 MG PO SCH (20:24)
[2016-11-13] MEDS: Clotrimazole 1% VAGINAL CREAM* 45 GM VAGINAL SCH (20:26)
[2016-11-14 08:26] LABS: Hematocrit 43 % (35-47); Mean Corpuscular HGB Conc 33 g/dl (31-36); Mean Corpuscular Hemoglobin 27 pg (27-31); Mean Corpuscular Volume 82 fL (80-97); Mean Platelet Volume 8 um3 (7.4-10.4); Red Blood Count 5.23 10^6/ul (4.0-5.4); Red Cell Distribution Width 15 % (10.5-15); White Blood Count 9.7 10^3/ul (3.5-10.8)
[2016-11-14 08:35] LABS: HDL Cholesterol 46.1 mg/dL
[2016-11-14] MEDS: Haloperidol TAB* 5 MG PO SCH ×2 (09:07→20:41)
[2016-11-14] MEDS: Gabapentin CAP(*) 400 MG PO SCH ×2 (09:07→20:42)
[2016-11-14] MEDS: Vitamin THERAPEUTIC TAB PO SCH (09:07)
[2016-11-14] MEDS: Benztropine TAB* 1 MG PO SCH ×2 (09:08→20:40)
[2016-11-14] MEDS: clonazePAM TAB(*) 0.5 MG PO SCH ×2 (09:08→20:40)
[2016-11-14] MEDS: CloZAPine TAB* 25 MG TAB PO SCH ×2 (09:08→20:41)
[2016-11-14] MEDS: clonazePAM TAB(*) 1 MG PO PRN (11:32)
[2016-11-14] MEDS: Nicotine Inhaler* 10 MG AMP INH PRN (17:22)
[2016-11-14] MEDS: chlorproMAZINE TAB* 100 MG PO SCH (20:42)
[2016-11-14] MEDS: Clotrimazole 1% VAGINAL CREAM* 45 GM VAGINAL SCH (20:44)
[2016-11-15] MEDS: Gabapentin CAP(*) 400 MG PO SCH (09:14)
[2016-11-15] MEDS: clonazePAM TAB(*) 0.5 MG PO SCH ×2 (09:15→20:17)
[2016-11-15] MEDS: CloZAPine TAB* 25 MG TAB PO SCH ×2 (09:15→20:17)
[2016-11-15] MEDS: Benztropine TAB* 1 MG PO SCH ×2 (09:15→20:18)
[2016-11-15] MEDS: Haloperidol TAB* 5 MG PO SCH ×2 (09:15→20:17)
[2016-11-15] MEDS: Nicotine Inhaler* 10 MG AMP INH PRN (09:18)
[2016-11-15] MEDS: Vitamin THERAPEUTIC TAB PO SCH (09:33)
--- NOTE | 2016-11-15 12:53 | PN ---
Subjective - Subjective Service Type: 47051 Hosp care 15 min low complexity Subjective: Patient feels tired, citing the combination of Klonopin, clozapine (newly introduced) and gabapentin. Still reports auditory hallucinations and suicidal ideation. Although clozapine was just started, she is also being transferred to [facility] for ECT treatments, she says. Objective - Appearance Appearance: Well Developed/Nourished Dysmorphic Features: No Hygiene: Normal Grooming: Fairly Well Kept - Behavior Psychomotor Activities: Abnormal-Decreased Exhibits Abnormal Movement: No - Attitude and Relatedness Attitude and Relatedness: Cooperative Eye Contact: Fair - Speech Quality: Unpressured Latencies: Normal Quantity: Terse - Mood Patient's Decription of Mood: "Sad" - Affect Observed Affect: Constricted Affect Consistent with: Dysphoria - Thought Process Patient's Thought Process: Coherent, Goal Directed Thought Content: Yes Passive Wish - suicidal ideation but no plan pending ECT, No Suicidal Planning, No Homicidal Ideation, No Paranoid Ideation - Sensorium Experiencing Hallucinations: Yes Type of Hallucinations: Visual: No, Auditory: Yes, Command: No - Level of Consciousness Level of Consciousness: Alert Orientation: Yes Intact, Yes Orientated to Time, Yes Orientated to Place, Yes Orientated to Person - Impulse Control Impulse Control: Poor - Insight and Judgement Insight and Judgement: Fair - Group Participation Particating in Group Activities: Yes - Medication Management Medication Management Adherence: Yes Assessment - Assessment Merits Inpatient Hospitalization: For Immediate Safety, For Stabilization Inpatient DSM-IV Dx: Schizoaffective DO, Depressed Clinical Impression: Patient with complicated mixture of some schizoaffective disorder depressed and baseline borderline personality disorder. She was just started on clozapine, which is reasonable both to address psychosis and decrease suicidality. She is tolerating this except for sedation due to polypharmacy. She is still suicidal but is future directed towards ECT. Since she is due to go for ECT tomorrow I will start to taper clonazepam and gabapentin, both because they are sedating and because as anticonvulsants they will make ECT problematic. Plan - Plan Treatment Plan: Name: ADRIANA GOTTI Birthdate: 1985 [id number] Continued Medication Management: Different Medication - change gabapentin to 400 tid, stop PRN klonopin, add prn thorazine Medications: Current Medications Acetaminophen (Tylenol Tab*) 650 mg PO Q4H PRN PRN Reason: for pain; or Temp >101 F Last Admin: 11/13/16 10:19 Dose: 650 mg Al Hydrox/Mg Hydrox/Simethicone (Maalox Plus*) 30 ml PO Q4H PRN PRN Reason: INDIGESTION Last Admin: 11/09/16 22:37 Dose: 30 ml Albuterol (Ventolin Hfa Inhaler*) 2 puff INH Q2H PRN PRN Reason: SOB/WHEEZING Last Admin: 11/13/16 22:23 Dose: 2 puff Benztropine Mesylate (Cogentin Tab*) 0.5 mg PO BID [facility] Last Admin: 11/15/16 09:15 Dose: 0.5 mg Chlorpromazine HCl (Thorazine Tab*) 200 mg PO BEDTIME [facility] Last Admin: 11/14/16 20:42 Dose: 200 mg Clonazepam (Klonopin Tab(*)) 0.5 mg PO BID [facility] Last Admin: 11/15/16 09:15 Dose: 0.5 mg Clonazepam (Klonopin Tab(*)) 1 mg PO BID PRN PRN Reason: ANXIETY/AGITATION Last Admin: 11/14/16 11:32 Dose: 1 mg Clotrimazole (Gyne-Lotrimin 1% Vaginal Cream*) 1 applic VAGINAL BEDTIME [facility] Last Admin: 11/14/16 20:44 Dose: 1 applic Clozapine (Clozapine Tab*) 50 mg PO BID [facility] Last Admin: 11/15/16 09:15 Dose: 50 mg Gabapentin (Neurontin Cap(*)) 800 mg PO BID [facility] Last Admin: 11/15/16 09:14 Dose: 800 mg Haloperidol (Haldol Tab*) 5 mg PO BID [facility] Last Admin: 11/15/16 09:15 Dose: 5 mg Haloperidol (Haldol Tab*) 5 mg PO Q6H PRN PRN Reason: AGITATION/ANXIETY/INSOMNIA Last Admin: 11/12/16 17:22 Dose: 5 mg Multivitamins (Theragran Tab*) 1 tab PO DAILY [facility] Last Admin: 11/15/16 09:33 Dose: Not Given Nicotine (Nicotine Inhaler*) 10 mg INH Q2H PRN PRN Reason: CRAVING Last Admin: 11/15/16 09:18 Dose: 10 mg Nicotine Polacrilex (Nicotine Gum*) 2 mg PO Q2H PRN PRN Reason: CRAVING - Discharge Plan Discharge Plan: Inpatient Hospitalization - work towards transfer to hospital that offers ECT Outpatient Program: [facility]
[2016-11-15] MEDS: Gabapentin CAP(*) 300 MG PO SCH ×3 (13:31→20:16)
[2016-11-15] MEDS: chlorproMAZINE TAB* 50 MG PO PRN (17:22)
[2016-11-15] MEDS: chlorproMAZINE TAB* 100 MG PO SCH (20:16)
[2016-11-15] MEDS: Clotrimazole 1% VAGINAL CREAM* 45 GM VAGINAL SCH (20:19)
[2016-11-16] MEDS: Docusate CAP* 100 MG PO SCH ×2 (02:16→08:19)
[2016-11-16 08:03] VITALS: BP 147/88
[2016-11-16] MEDS: clonazePAM TAB(*) 0.5 MG PO SCH (08:17)
[2016-11-16] MEDS: Haloperidol TAB* 5 MG PO SCH (08:18)
[2016-11-16] MEDS: Gabapentin CAP(*) 300 MG PO SCH ×2 (08:18→12:29)
[2016-11-16] MEDS: Benztropine TAB* 1 MG PO SCH (08:19)
[2016-11-16] MEDS: CloZAPine TAB* 25 MG TAB PO SCH (08:19)
[2016-11-16] MEDS: Acetaminophen TAB* 325 MG PO PRN (08:21)
[2016-11-16] MEDS: Nicotine Inhaler* 10 MG AMP INH PRN ×2 (08:29→12:31)
[2016-11-16] MEDS: Vitamin THERAPEUTIC TAB PO SCH (08:40)
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
[2016-11-16] MEDS: chlorproMAZINE TAB* 50 MG PO PRN (12:30)
== END 2016-11-16 15:10 | DRG 740 ==
LOC: ED 10:45 → BSU 14:05
PROVIDERS: ADMIT Psychiatry & Neurology Psychiatry; ATTEND Psychiatry & Neurology Psychiatry
PROC: 0JQH0ZZ Repair Left Lower Arm Subcutaneous Tissue and Fascia, Open Approach (ICD-10-PCS; principal; 2016-11-10)
DX: F25.1 Schizoaffective disorder, depressive type (principal); R45.851 Suicidal ideations; F60.3 Borderline personality disorder; F43.10 Post-traumatic stress disorder, unspecified; Z62.810 Personal history of physical and sexual abuse in childhood; J45.909 Unspecified asthma, uncomplicated; M79.7 Fibromyalgia; Z79.899 Other long term (current) drug therapy; Z88.6 Allergy status to analgesic agent; Z88.8 Allergy status to other drugs, medicaments and biological substances; Z81.8 Family history of other mental and behavioral disorders; Z81.1 Family history of alcohol abuse and dependence; F17.210 Nicotine dependence, cigarettes, uncomplicated; S61.512A Laceration without foreign body of left wrist, initial encounter; X78.8XXA Intentional self-harm by other sharp object, initial encounter; Y92.230 Patient room in hospital as the place of occurrence of the external cause
CPT/HCPCS: 36415; 80053; 80061; 80307; 80320; 80329; 81003; 83036; 84443; 84702; 85025; 99222; 99231; A9270-GY; G0480

== ENCOUNTER 2016-11-23 18:32 | Emergency (ER) | payer MEDICAID ==
[2016-11-23 20:13] VITALS: BP 131/71
--- NOTE | 2016-11-23 21:23 | UC ---
Respiratory Complaint HPI - HPI Summary HPI Summary: chest congestion since yest. Thought it was allergies but now is so stuffed up feels that it is not allergies. Cough is "rough" and she can hardly catch her breath when she coughs. Tried decongestant and nose drops and rescue inhaler without relief. Decreased smoking from 1 pack to 9 cigarettes and it didn't help. States she also has anxiety. - History of Current Complaint Chief Complaint: UCGeneralIllness Stated Complaint: CHEST CONGESTION Time Seen by Provider: 11/23/16 21:23 Hx Obtained From: Patient Hx Last Menstrual Period: unknown, irregular, states her is sterile, ?: No Onset/Duration: Gradual Onset, Lasting Days, Still Present Timing: Constant Severity Initially: Moderate Severity Currently: Moderate Pain Intensity: 8 Pain Scale Used: 0-10 Numeric Character: Cough: Productive Aggravating Factors: Nothing Alleviating Factors: Bronchodilator - inhaler Associated Signs And Symptoms: Positive: Dyspnea, Pleuritic Chest Pain, Wheezing , URI, Nasal Congestion, Hoarseness. Negative: Fever, Chills, Hemoptysis, Dizziness, Calf Pain, Calf Swelling, Edema, Sinus Discomfort Related History: Seasonal Allergies - Risk Factors Pulmonary Embolism Risk Factors: Negative, Smoking Cardiac Risk Factors: Smoking Pseudomonas Risk Factors: Negative Tuberculosis Risk Factors: Negative - Allergies/Home Medications Allergies/Adverse Reactions: Allergies Allergy/AdvReac Type Severity Reaction Status Date / Time Metoprolol Allergy Unknown Rash Verified 11/23/16 20:14 Trazodone Allergy Unknown Unknown Verified 11/23/16 20:14 Reaction Details Amoxicillin Allergy Unknown Verified 11/23/16 20:14 Reaction Details Cefaclor Allergy Unknown Verified 11/23/16 20:14 Reaction Details Clavulanic Acid Allergy Unknown Verified 11/23/16 20:14 Reaction Details Lamotrigine Allergy Rash Verified 11/23/16 20:14 [place] Flavor Allergy Unknown Verified 11/23/16 20:14 Reaction Details Penicillins Allergy Unknown Verified 11/23/16 20:14 Reaction Details Quetiapine Allergy Tachycardia Verified 11/23/16 20:14 Sulfa Antibiotics Allergy Rash Verified 11/23/16 20:14 Sulfamethoxazole Allergy Rash Verified 11/23/16 20:14 w/Trimethoprim [From Bactrim] Risperidone [From Risperdal] AdvReac Unknown Rash Verified 11/23/16 20:14 Home Medications: Home Medications Gabapentin CAP(*) [Neurontin 300 CAP(*)] 600 mg PO BID 11/23/16 [History Confirmed 11/23/16] Phenylephrine W/ Acetaminophen [Tylenol Sinus Congestion 5-325 mg] 2 tab PO ONCE PRN 11/23/16 [History Confirmed 11/23/16] PMH/Surg Hx/FS Hx/Imm Hx Endocrine History Of: Denies: Diabetes Cardiovascular History Of: Denies: Hypertension, Pacemaker/ICD, Congestive Heart Failure, Deep Vein Thrombosis Respiratory History Of: Reports: Asthma, Pneumonia Denies: COPD, Pulmonary Embolism GI/ History Of: Denies: Ulcer, Gastrointestinal Bleed, Gall Bladder Disease, Renal Disease Neurological History Of: Denies: TIA, CVA, Dementia, Seizures, Migraine - patient denied Psychological History Of: Reports: Anxiety, Depression, Bipolar Disorder, Schizophrenia Cancer History Of: Denies: Lung Cancer Other History Of: Negative For: Anticoagulant Therapy - Surgical History Surgical History: Yes Surgery Procedure, Year, and Place: Left Knee. Left Foot (2009) - Family History Known Family History: Positive: Hypertension, Diabetes, Other - Mother from cancer, HLD. Father has depression and anxiety - Social History Occupation: Disabled Lives: With Family Alcohol Use: Occasionally Alcohol Amount: 1-2 drinks Substance Use Type: None Substance Use Comment - Amount & Last Used: Denies. Smoking Status (MU): Heavy Every Day Tobacco Smoker Type: Cigarettes Amount Used/How Often: 3/4 TO 1 PPD Length of Time of Smoking/Using Tobacco: SINCE AGE 11 Y.O. Have You Smoked in the Last Year: Yes Household Exposure Type: Cigarettes - Immunization History Most Recent Influenza Vaccination: 2013 Most Recent Tetanus Shot: UTD Most Recent Pneumonia Vaccination: 2013 Review of Systems Constitutional: Negative Skin: Negative Eyes: Negative ENT: Sore Throat Respiratory: Cough Cardiovascular: Chest Pain - with cough only Gastrointestinal: Negative Genitourinary: Negative Motor: Negative Neurovascular: Negative Musculoskeletal: Negative Neurological: Negative Psychological: Negative All Other Systems Reviewed And Are Negative: Yes Physical Exam Triage Information Reviewed: Yes Appearance: Ill-Appearing, Pain Distress, Obese Vital Signs: Initial Vital Signs Temp 99.5 F 11/23/16 20:05 Pulse 121 11/23/16 20:05 Resp 22 11/23/16 20:05 BP 131/71 11/23/16 20:05 Pulse Ox 100 11/23/16 20:05 Vital Signs Reviewed: Yes Eyes: Positive: Conjunctiva Clear ENT: Positive: Pharyngeal erythema, TMs normal. Negative: Tonsillar swelling, Tonsillar exudate Neck: Positive: Supple, Nontender, No Lymphadenopathy Respiratory: Positive: Decreased breath sounds, Wheezing Cardiovascular: Positive: RRR, No Murmur, Pulses Normal, Brisk Capillary Refill Musculoskeletal: Positive: Strength Intact, ROM Intact Neurological: Positive: Alert, Muscle Tone Normal Psychological Exam: Normal Skin Exam: Normal UC Diagnostic Evaluation - Laboratory O2 Sat by Pulse Oximetry: 100 Re-Evaluation - Re-Evaluation First Eval Re-Evaluation Time: 22:00 Change: Improved - increased aeration after neb Respiratory Course/Dx - Course Course Of Treatment: albuterol neb, prednisone 40mg and azithromycin 500mg given with improvement - Differential Dx/Diagnosis Differential Diagnosis/HQI/PQRI: Asthma, Bronchitis, Lower Resp Infection, Sinusitis Provider Diagnoses: acute asthmatic bronchitis Discharge - Discharge Plan Condition: Stable Disposition: HOME Prescriptions: Albuterol HFA INHALER* [Ventolin HFA Inhaler*] 2 puff INH Q4H PRN #1 mdi PRN Reason: Sob/Wheezing Azithromycin TAB* [Zithromax TAB (Z-SAE) 250 mg #6 tabs] 250 mg PO DAILY #4 tab predniSONE TAB* [Deltasone TAB*] 40 mg PO DAILY #10 tab Patient Education Materials: Acute Bronchitis (ED), Bronchospasm (ED) Referrals: Pam MCFARLANE,Collins Conte [Primary Care Provider] -
[2016-11-23] MEDS ORDERED: Azithromycin TAB* 250 MG PO ONE (21:39)
[2016-11-23] MEDS ORDERED: predniSONE TAB* 20 MG PO ONE (21:41)
[2016-11-23] MEDS ORDERED: Albuterol 2.5 MG/3 ML NEB.SOL* (0.083%) INH ONE (21:41)
== END 2016-11-23 22:14 | disposition home or self-care (01) ==
LOC: UCCORT 18:32
DX: J45.998 Other asthma (principal); Z72.0 Tobacco use
CPT/HCPCS: 99213; A9270-GY; G0463; J7512

== ENCOUNTER 2016-11-28 17:46 | Emergency (ER) | payer MEDICAID | END 2016-11-28 19:23 | disposition left against medical advice (07) | LOC: UCCORT 17:46 | DX: R05 Cough (principal) ==

== ENCOUNTER 2016-11-30 18:36 | Inpatient (IN) | payer MEDICAID ==
[2016-11-30 19:43] LABS: Hematocrit 45 % (35-47); Hemoglobin 14.4 g/dl (12.0-16.0); Mean Corpuscular HGB Conc 32 g/dl (31-36); Mean Corpuscular Hemoglobin 26 pg (27-31); Mean Corpuscular Volume 81 fL (80-97); Mean Platelet Volume 7 um3 (7.4-10.4); Red Cell Distribution Width 15 % (10.5-15); White Blood Count 22.3 10^3/ul (3.5-10.8)
[2016-11-30 19:53] LABS: Urine Bilirubin Negative (Negative); Urine Glucose Negative (Negative); Urine Nitrite Negative (Negative)
[2016-11-30 20:06] LABS: Add Diff/Slide Review? Slide Review Added; Comments Flag Yes
[2016-11-30 20:24] LABS: TSH (Thyroid Stimulating Horm) 1.68 mcIU/mL (0.34-5.60)
[2016-11-30 20:28] LABS: ALT 20 U/L (7-52); AST 18 U/L (13-39); Albumin 4.3 g/dL (3.2-5.2); Alkaline Phosphatase 115 U/L (34-104); Anion Gap 9 mmol/L (2-11); BUN/Creatinine Ratio 7.9 (8-20); Blood Urea Nitrogen 6 mg/dL (6-24); CO2 Carbon Dioxide 26 mmol/L (22-32); Calcium 9.5 mg/dL (8.6-10.3); Chloride 101 mmol/L (101-111); EGFR African American 114.9 (>60); EGFR Non-African American 89.4 (>60); Globulin 3.2 g/dL (2-4); Glucose 123 mg/dL (70-100); Potassium 3.6 mmol/L (3.5-5.0); Sodium 136 mmol/L (133-145); Total Protein 7.5 g/dL (6.4-8.9)
[2016-11-30 20:29] LABS: Acetaminophen < 15 mcg/mL; Alcohol < 10 mg/dL (<10); Salicylate < 2.50 mg/dL (<30)
[2016-11-30 20:31] LABS: Benzodiazepine Urine Screen None Detected (None Detect)
[2016-11-30] MEDS ORDERED: Azithromycin TAB* 250 MG PO ONE (21:19)
--- NOTE | 2016-11-30 23:19 | ED ---
Jacob Fine Benjamin, scribed for David Ann MD on 11/30/16 at 2020 . Psychiatric Complaint - HPI Summary HPI Summary: 31yo female c/o anxiety and hearing voices that commands her to harm herself. Denies SOB but pt was dx'ed with bronchitis yesterday. Pt had a CXR done yesterday for her bronchitis. - History Of Current Complaint Chief Complaint: EDMentalHealth Time Seen by Provider: 11/30/16 19:25 Hx Obtained From: Patient Hx Last Menstrual Period: Irregular- September 2016 Onset/Duration: Sudden Onset, Still Present Timing: Constant Severity Initially: Mild Severity Currently: Mild Character: Anxious Aggravating Factor(s): Nothing Alleviating Factor(s): Nothing Associated Signs And Symptoms: Positive: Negative - Allergies/Home Medications Allergies/Adverse Reactions: Allergies Allergy/AdvReac Type Severity Reaction Status Date / Time Metoprolol Allergy Unknown Rash Verified 11/29/16 13:58 Trazodone Allergy Unknown Unknown Verified 11/29/16 13:58 Reaction Details Amoxicillin Allergy Unknown Verified 11/29/16 13:58 Reaction Details Cefaclor Allergy Unknown Verified 11/29/16 13:58 Reaction Details Clavulanic Acid Allergy Unknown Verified 11/29/16 13:58 Reaction Details Lamotrigine Allergy Rash Verified 11/29/16 13:58 [place] Flavor Allergy Unknown Verified 11/29/16 13:58 Reaction Details Penicillins Allergy Unknown Verified 11/29/16 13:58 Reaction Details Quetiapine Allergy Tachycardia Verified 11/29/16 13:58 Sulfa Antibiotics Allergy Rash Verified 11/29/16 13:58 Sulfamethoxazole Allergy Rash Verified 11/29/16 13:58 w/Trimethoprim [From Bactrim] Risperidone [From Risperdal] AdvReac Unknown Rash Verified 11/29/16 13:58 PMH/Surg Hx/FS Hx/Imm Hx Endocrine/Hematology History: Denies: Hx Anticoagulant Therapy, Hx Diabetes, Hx Anemia, Hx Unexplained Bleeding Cardiovascular History: Reports: Other Cardiovascular Problems/Disorders - chest pain Denies: Hx Aneurysm, Hx Angina, Hx Angioplasty, Hx Auto Implanted Cardiovert Defib, Hx Cardiac Arrest, Hx Cardiomegaly, Hx Congenital Heart Disease, Hx Congestive Heart Failure, Hx Coronary Artery Disease, Hx Deep Vein Thrombosis, Hx Embolism, Hx Hypercholesterolemia, Hx Hypotension, Hx Hypertension, Hx Pacemaker/ICD, Hx Peripheral Vascular Disease, Hx Rheumatic Fever, Hx Syncope, Hx Valvular Heart Disease Respiratory History: Reports: Hx Asthma, Hx Chronic Bronchitis, Hx Pneumonia Denies: Hx Chronic Obstructive Pulmonary Disease (COPD), Hx Cystic Fibrosis, Hx Lung Cancer, Hx Pleural Effusion, Hx Pulmonary Edema, Hx Pulmonary Embolism, Hx Sleep Apnea, Other Respiratory Problems/Disorders GI History: Reports: Hx Gastroesophageal Reflux Disease Denies: Hx Cirrhosis, Hx Crohn's Disease, Hx Diverticulosis, Hx Gall Bladder Disease, Hx Gastrointestinal Bleed, Hx Hiatal Hernia, Hx Irritable Bowel, Hx Jaundice, Hx Obstructive Bowel, Hx Ileostomy, Hx Pyloric Stenosis, Hx Ulcer, Other GI Disorders History: Denies: Hx Renal Disease Musculoskeletal History: Reports: Hx Arthritis - Left shoulder, Hx Fibromyalgia - denies currently bothering her, Hx Tendonitis Denies: Hx Back Problems, Hx Bursitis, Hx Congenital Bone Abnormalities, Hx Gout, Hx Orthopedic Injury, Hx Osteoporosis, Hx Scoliosis, Other Musculoskeletal History Sensory History: Reports: Hx Contacts or Glasses Denies: Hx Cataracts, Hx Eye Injury, Hx Eye Prosthesis, Hx Glaucoma, Hx Legally Blind, Hx Macular Degeneration, Hx Vision Problem, Hx Hearing Aid, Other Sensory Impairments Opthamlomology History: Reports: Hx Contacts or Glasses Denies: Hx Cataracts, Hx Eye Injury, Hx Eye Prosthesis, Hx Glaucoma, Hx Legally Blind, Hx Macular Degeneration, Hx Vision Problem, Other Sensory Impairments Neurological History: Reports: Hx Headaches Denies: Hx Dementia, Hx Developmental Delay, Hx Migraine - patient denied, Hx Nerve Disease, Hx Seizures, Hx Spinal Cord Injury, Hx Transient Ischemic Attacks (TIA), Other Neuro Impairments/Disorders Psychiatric History: Reports: Hx Anxiety, Hx Attention Deficit Hyperactivity Disorder, Hx Depression, Hx Post Traumatic Stress Disorder, Hx Inpatient Treatment, Hx Community Mental Health Tx, Hx Schizophrenia, Hx Bipolar Disorder , Hx Suicide Attempt, Hx of Violent Episodes Against Others Denies: Hx Eating Disorder, Hx Panic Disorder, Hx Substance Abuse, Other Psychiatric Issues/Disorders - Surgical History Surgery Procedure, Year, and Place: Left Knee. Left Foot (2009) Hx Anesthesia Reactions: No - Immunization History Date of Tetanus Vaccine: unk Infectious Disease History: No Infectious Disease History: Reports: Hx of Known/Suspected MRSA - 3 years ago Denies: Hx Hepatitis, Hx Shingles, Hx Tuberculosis, Hx Known/Suspected VRE, Hx Known/Suspected VRSA, History Other Infectious Disease, Traveled Outside the [place] in Last 30 Days - Family History Known Family History: Positive: Hypertension, Diabetes, Other - Mother from cancer, HLD. Father has depression and anxiety - Social History Occupation: Disabled Lives: With Family Alcohol Use: Occasionally Alcohol Amount: 1-2 drinks Hx Substance Use: No Substance Use Type: Reports: None Substance Use Comment - Amount & Last Used: Denies. Hx Tobacco Use: Yes Smoking Status (MU): Heavy Every Day Tobacco Smoker Type: Cigarettes Amount Used/How Often: 3/4 TO 1 PPD Length of Time of Smoking/Using Tobacco: SINCE AGE 11 Y.O. Have You Smoked in the Last Year: Yes Review of Systems Constitutional: Negative Eyes: Negative ENT: Negative Cardiovascular: Negative Respiratory: Negative Gastrointestinal: Negative Genitourinary: Negative Musculoskeletal: Negative Skin: Negative Neurological: Negative Positive: Anxious, Other - SI All Other Systems Reviewed And Are Negative: Yes Physical Exam Triage Information Reviewed: Yes Vital Signs On Initial Exam: Initial Vitals Temp Pulse Resp BP Pulse Ox 98.4 F 120 18 145/88 100 11/30/16 18:38 11/30/16 18:38 11/30/16 18:38 11/30/16 18:38 11/30/16 18:38 Vital Signs Reviewed: Yes Appearance: Positive: Well-Appearing, No Pain Distress, Well-Nourished Skin: Positive: Warm, Skin Color Reflects Adequate Perfusion, Dry Head/Face: Positive: Normal Head/Face Inspection Eyes: Positive: Normal ENT: Positive: Normal ENT inspection Neck: Positive: Supple, Nontender Respiratory/Lung Sounds: Positive: Clear to Auscultation, Breath Sounds Present Cardiovascular: Positive: Tachycardia Abdomen Description: Positive: Nontender, Soft Bowel Sounds: Positive: Present Musculoskeletal: Positive: Normal, Strength/ROM Intact Neurological: Positive: Normal, Sensory/Motor Intact, Alert, Oriented to Person Place, Time, CN Intact II-III Psychiatric: Positive: Affect/Mood Appropriate - Roddy Coma Scale Coma Scale Total: 15 Diagnostics - Vital Signs Vital Signs Temp Pulse Resp BP Pulse Ox 11/30/16 19:32 98.2 F 120 16 125/76 100 11/30/16 18:38 98.4 F 120 18 145/88 100 - Laboratory Lab Results: Lab Results 11/30/16 11/30/16 11/30/16 Range/Units 19:15 19:34 19:34 WBC 22.3 H (3.5-10.8) 10^3/ul RBC 5.50 H (4.0-5.4) 10^6/ul Hgb 14.4 (12.0-16.0) g/dl Hct 45 (35-47) % MCV 81 (80-97) fL MCH 26 L (27-31) pg MCHC 32 (31-36) g/dl RDW 15 (10.5-15) % Plt Count 385 (150-450) 10^3/ul MPV 7 L (7.4-10.4) um3 Neut % (Auto) 70.9 (38-83) % Lymph % (Auto) 20.8 L (25-47) % [place] % (Auto) 5.5 (1-9) % Eos % (Auto) 2.1 (0-6) % Baso % (Auto) 0.7 (0-2) % Absolute Neuts (auto) 15.8 H (1.5-7.7) 10^3/ul Absolute Lymphs (auto) 4.6 (1.0-4.8) 10^3/ul Absolute Monos (auto) 1.2 H (0-0.8) 10^3/ul Absolute Eos (auto) 0.5 (0-0.6) 10^3/ul Absolute Basos (auto) 0.2 (0-0.2) 10^3/ul Absolute Nucleated RBC 0.02 10^3/ul Nucleated RBC % 0.1 D-Dimer, Quantitative (Less Than 230) ng/mL Sodium Pending Potassium Pending Chloride Pending Carbon Dioxide Pending Anion Gap Pending BUN Pending Creatinine Pending Est GFR ( Amer) Pending Est GFR (Non-Af Amer) Pending BUN/Creatinine Ratio Pending Glucose Pending Calcium Pending Total Bilirubin Pending AST Pending ALT Pending Alkaline Phosphatase Pending Total Protein Pending Albumin Pending Globulin Pending Albumin/Globulin Ratio Pending TSH Pending Beta HCG, Quant < 0.60 mIU/mL Urine Color Straw Urine Appearance Clear Urine pH 6.0 (5-9) Ur Specific [place] 1.002 L (1.010-1.030) Urine Protein Negative (Negative) Urine Ketones Negative (Negative) Urine Blood Negative (Negative) Urine Nitrate Negative (Negative) Urine Bilirubin Negative (Negative) Urine Urobilinogen Negative (Negative) Ur Leukocyte Esterase Negative (Negative) Urine Glucose Negative (Negative) Salicylates Pending Acetaminophen Pending Serum Alcohol Pending 11/30/16 Range/Units 19:34 WBC (3.5-10.8) 10^3/ul RBC (4.0-5.4) 10^6/ul Hgb (12.0-16.0) g/dl Hct (35-47) % MCV (80-97) fL MCH (27-31) pg MCHC (31-36) g/dl RDW (10.5-15) % Plt Count (150-450) 10^3/ul MPV (7.4-10.4) um3 Neut % (Auto) (38-83) % Lymph % (Auto) (25-47) % [place] % (Auto) (1-9) % Eos % (Auto) (0-6) % Baso % (Auto) (0-2) % Absolute Neuts (auto) (1.5-7.7) 10^3/ul Absolute Lymphs (auto) (1.0-4.8) 10^3/ul Absolute Monos (auto) (0-0.8) 10^3/ul Absolute Eos (auto) (0-0.6) 10^3/ul Absolute Basos (auto) (0-0.2) 10^3/ul Absolute Nucleated RBC 10^3/ul Nucleated RBC % D-Dimer, Quantitative < 200 (Less Than 230) ng/mL Sodium Potassium Chloride Carbon Dioxide Anion Gap BUN Creatinine Est GFR ( Amer) Est GFR (Non-Af Amer) BUN/Creatinine Ratio Glucose Calcium Total Bilirubin AST ALT Alkaline Phosphatase Total Protein Albumin Globulin Albumin/Globulin Ratio TSH Beta HCG, Quant mIU/mL Urine Color Urine Appearance Urine pH (5-9) Ur Specific [place] (1.010-1.030) Urine Protein (Negative) Urine Ketones (Negative) Urine Blood (Negative) Urine Nitrate (Negative) Urine Bilirubin (Negative) Urine Urobilinogen (Negative) Ur Leukocyte Esterase (Negative) Urine Glucose (Negative) Salicylates Acetaminophen Serum Alcohol Result Diagrams: 11/30/16 19:34 11/30/16 19:34 Lab Statement: Any lab studies that have been ordered have been reviewed, and results considered in the medical decision making process. - EKG 1943. Cardiac Rate: Tachycardia - 111bpm EKG Rhythm: Sinus Tachycardia ST Segment: Non-Specific - non specific T abnormalities in anterolateral leads. Ectopy: None Course/Dx - Course Course Of Treatment: NO CRITICAL CARE TIME. MHE PENDING AT SHIFT CHANGE. STARTED ZPAC FOR BRONCHITIS. - Differential Dx/Clinical Impression Provider Diagnosis: Mental health problem, Bronchitis Discharge - Discharge Plan Condition: Stable Disposition: OTHER Discharge Disposition Comment: . Referrals: Pam MCFARLANE,Collins Conte [Primary Care Provider] - The documentation as recorded by the Jacob pringle Benjamin accurately reflects the service I personally performed and the decisions made by me, David Ann MD.
[2016-12-01] MEDS ORDERED: Benztropine TAB* 1 MG ONE (00:43)
[2016-12-01] MEDS ORDERED: clonazePAM TAB(*) 0.5 MG ONE (00:43)
[2016-12-01] MEDS ORDERED: Gabapentin CAP(*) 300 MG ONE (00:44)
[2016-12-01] MEDS ORDERED: Haloperidol TAB* 5 MG ONE (00:44)
[2016-12-01] MEDS ORDERED: CloZAPine TAB* 25 MG TAB ONE (00:44)
[2016-12-01] MEDS ORDERED: chlorproMAZINE TAB* 100 MG ONE (00:44)
[2016-12-01] MEDS: Benztropine TAB* 1 MG PO SCH ×3 (00:50→21:38)
[2016-12-01] MEDS: Gabapentin CAP(*) 300 MG PO SCH ×3 (00:50→21:37)
[2016-12-01] MEDS: CloZAPine TAB* 25 MG TAB PO SCH ×3 (00:50→21:37)
[2016-12-01] MEDS: chlorproMAZINE TAB* 100 MG PO SCH ×2 (00:50→21:37)
[2016-12-01] MEDS: Haloperidol TAB* 5 MG PO SCH ×3 (00:50→21:36)
[2016-12-01] MEDS: clonazePAM TAB(*) 0.5 MG PO SCH ×3 (00:50→21:38)
[2016-12-01] MEDS ORDERED: Al Hydrox/Mg Hydrox/Simet LIQ* 30 ML UDC PO PRN (01:58)
[2016-12-01] MEDS ORDERED: Mouth Piece, Nicotine* 1 EACH CARTRIDGE INH SCH (01:58)
[2016-12-01] MEDS ORDERED: Acetaminophen TAB* 325 MG PO PRN (01:58)
[2016-12-01] MEDS ORDERED: Albuterol HFA INHALER* 8 gm MDI INH PRN (02:00)
[2016-12-01] MEDS ORDERED: Albuterol/Ipratropium NEB.SOL* Albuterol 2.5 MG/Ipratropium 0.5 MG 3 ML INH PRN (02:00)
[2016-12-01] MEDS: Vitamin THERAPEUTIC TAB PO SCH (09:08)
[2016-12-01] MEDS: METHYLPREDNISOLONE 8 MG PO SCH ×2 (09:11→21:36)
[2016-12-01] MEDS: METHYLPREDNISOLONE 4 MG PO SCH ×2 (13:28→17:58)
[2016-12-01] MEDS: Azithromycin TAB* 250 MG PO SCH (13:28)
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
[2016-12-02] MEDS: METHYLPREDNISOLONE 4 MG PO SCH ×3 (07:21→17:51)
[2016-12-02] MEDS: Gabapentin CAP(*) 300 MG PO SCH ×2 (09:05→20:08)
[2016-12-02] MEDS: Haloperidol TAB* 5 MG PO SCH ×2 (09:06→20:08)
[2016-12-02] MEDS: Azithromycin TAB* 250 MG PO SCH (09:06)
[2016-12-02] MEDS: CloZAPine TAB* 25 MG TAB PO SCH ×2 (09:06→20:08)
[2016-12-02] MEDS: clonazePAM TAB(*) 0.5 MG PO SCH ×2 (09:07→20:07)
[2016-12-02] MEDS: Vitamin THERAPEUTIC TAB PO SCH (09:07)
[2016-12-02] MEDS: Benztropine TAB* 1 MG PO SCH ×2 (09:09→20:07)
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
[2016-12-02] MEDS: Nicotine Inhaler* 10 MG AMP INH PRN (17:54)
[2016-12-02] MEDS ORDERED: chlorproMAZINE TAB* 25 MG ONE (18:31)
[2016-12-02] MEDS ORDERED: chlorproMAZINE TAB* 25 MG PO PRN (19:06)
[2016-12-02] MEDS: chlorproMAZINE TAB* 100 MG PO SCH (20:07)
[2016-12-02] MEDS ORDERED: METHYLPREDNISOLONE 8 MG PO SCH (21:00)
[2016-12-03] MEDS: METHYLPREDNISOLONE 4 MG PO SCH ×4 (07:36→20:18)
[2016-12-03 07:40] VITALS: BP 155/63
[2016-12-03] MEDS: Azithromycin TAB* 250 MG PO SCH (08:52)
[2016-12-03] MEDS: CloZAPine TAB* 25 MG TAB PO SCH ×2 (08:52→20:17)
[2016-12-03] MEDS: Vitamin THERAPEUTIC TAB PO SCH (08:52)
[2016-12-03] MEDS: Gabapentin CAP(*) 300 MG PO SCH ×2 (08:53→20:17)
[2016-12-03] MEDS: Haloperidol TAB* 5 MG PO SCH ×2 (08:53→20:17)
[2016-12-03] MEDS: Benztropine TAB* 1 MG PO SCH ×2 (08:54→20:16)
[2016-12-03] MEDS: clonazePAM TAB(*) 0.5 MG PO SCH ×2 (08:54→20:17)
[2016-12-03] MEDS: Nicotine Inhaler* 10 MG AMP INH PRN ×2 (11:18→15:45)
[2016-12-03] MEDS ORDERED: LORazepam TAB(*) 1 MG PO PRN (11:41)
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
[2016-12-03] MEDS: chlorproMAZINE TAB* 100 MG PO SCH (20:16)
[2016-12-04] MEDS ORDERED: METHYLPREDNISOLONE 4 MG PO SCH (07:00)
[2016-12-04] MEDS: Gabapentin CAP(*) 300 MG PO SCH (09:55)
[2016-12-04] MEDS: Haloperidol TAB* 5 MG PO SCH (09:55)
[2016-12-04] MEDS: Vitamin THERAPEUTIC TAB PO SCH (09:55)
[2016-12-04] MEDS: clonazePAM TAB(*) 0.5 MG PO SCH (09:56)
[2016-12-04] MEDS: CloZAPine TAB* 25 MG TAB PO SCH (09:56)
[2016-12-04] MEDS: Benztropine TAB* 1 MG PO SCH (09:56)
[2016-12-04] MEDS: Azithromycin TAB* 250 MG PO SCH (09:56)
[2016-12-04] MEDS: Nicotine Inhaler* 10 MG AMP INH PRN (10:49)
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
[2016-12-05] MEDS ORDERED: METHYLPREDNISOLONE 4 MG PO SCH (07:00)
[2016-12-06] MEDS ORDERED: METHYLPREDNISOLONE 4 MG PO SCH (07:00)
== END 2016-12-04 13:45 | disposition home or self-care (01) | DRG 750 ==
LOC: ED 18:36 → BSU 12-01 00:35 → ED 12-01 00:47 → BSU 12-01 12:21
PROVIDERS: ADMIT Psychiatry & Neurology Psychiatry; ATTEND Psychiatry & Neurology Psychiatry
DX: F25.1 Schizoaffective disorder, depressive type (principal); F60.3 Borderline personality disorder; F43.10 Post-traumatic stress disorder, unspecified; J20.9 Acute bronchitis, unspecified; J45.909 Unspecified asthma, uncomplicated; M79.7 Fibromyalgia; F17.210 Nicotine dependence, cigarettes, uncomplicated; Z62.810 Personal history of physical and sexual abuse in childhood; Z79.1 Long term (current) use of non-steroidal anti-inflammatories (NSAID); Z79.899 Other long term (current) drug therapy; Z88.1 Allergy status to other antibiotic agents; Z88.8 Allergy status to other drugs, medicaments and biological substances; Z81.8 Family history of other mental and behavioral disorders
CPT/HCPCS: 36415; 80053; 80307; 80320; 80329; 81003; 84443; 84702; 85025; 85379; 93005; 99222; 99231; 99238; A9270-GY; G0480; J7509

== ENCOUNTER 2016-12-09 18:39 | Emergency (ER) | payer MEDICAID | END 2016-12-09 19:47 | disposition left against medical advice (07) | LOC: UCCORT 18:39 | DX: R21 Rash and other nonspecific skin eruption (principal); Z53.21 Procedure and treatment not carried out due to patient leaving prior to being seen by health care provider ==

== ENCOUNTER 2016-12-24 16:49 | Emergency (ER) | payer MEDICAID ==
[2016-12-24 17:04] VITALS: BP 140/93
[2016-12-24 17:35] LABS: Urine Bilirubin Negative (Negative); Urine Glucose Negative (Negative); Urine Nitrite Negative (Negative)
[2016-12-24 17:49] LABS: Benzodiazepine Urine Screen None Detected (None Detect)
[2016-12-24 17:55] LABS: Hematocrit 42 % (35-47); Hemoglobin 13.5 g/dl (12.0-16.0); Mean Corpuscular HGB Conc 32 g/dl (31-36); Mean Corpuscular Hemoglobin 27 pg (27-31); Mean Corpuscular Volume 83 fL (80-97); Mean Platelet Volume 7 um3 (7.4-10.4); Red Cell Distribution Width 16 % (10.5-15); White Blood Count 11.2 10^3/ul (3.5-10.8)
[2016-12-24 18:23] LABS: Acetaminophen < 15 mcg/mL; Alcohol < 10 mg/dL (<10); Salicylate < 2.50 mg/dL (<30)
[2016-12-24 18:32] LABS: TSH (Thyroid Stimulating Horm) 1.09 mcIU/mL (0.34-5.60)
[2016-12-24 19:03] LABS: ALT 18 U/L (7-52); AST 21 U/L (13-39); Albumin 4.3 g/dL (3.2-5.2); Alkaline Phosphatase 111 U/L (34-104); Anion Gap 10 mmol/L (2-11); BUN/Creatinine Ratio 14.5 (8-20); Blood Urea Nitrogen 10 mg/dL (6-24); CO2 Carbon Dioxide 23 mmol/L (22-32); Calcium 9.9 mg/dL (8.6-10.3); Chloride 105 mmol/L (101-111); EGFR African American 128.5 (>60); EGFR Non-African American 99.9 (>60); Globulin 3.3 g/dL (2-4); Glucose 98 mg/dL (70-100); Potassium 3.8 mmol/L (3.5-5.0); Sodium 138 mmol/L (133-145); Total Protein 7.6 g/dL (6.4-8.9)
--- NOTE | 2016-12-24 19:25 | ED ---
Naa Fine Salem, scribed for David Ann MD on 12/24/16 at 1723 . Psychiatric Complaint - HPI Summary HPI Summary: Patient is a 31 y/o F who presents to the ED with psychiatric complaint. Pt reports SI with a plan to overdose on medication and cut. She also reports depression, but denies any drug or alcohol use. She has no other complaints. - History Of Current Complaint Chief Complaint: EDMentalHealth Time Seen by Provider: 12/24/16 17:20 Hx Obtained From: Patient Hx Last Menstrual Period: Irregular- September 2016 Onset/Duration: Gradual Onset, Still Present Timing: Constant Severity Initially: Moderate Severity Currently: Moderate Character: Depressed Aggravating Factor(s): Nothing Alleviating Factor(s): Nothing Associated Signs And Symptoms: Positive: Negative Related History: Positive For: Prior Psychiatric Issues Has Suicidal: Reports: Thoughts, With A Plan - Allergies/Home Medications Allergies/Adverse Reactions: Allergies Allergy/AdvReac Type Severity Reaction Status Date / Time Metoprolol Allergy Unknown Rash Verified 12/03/16 16:16 Trazodone Allergy Unknown Unknown Verified 12/03/16 16:16 Reaction Details Amoxicillin Allergy Unknown Verified 12/03/16 16:16 Reaction Details Cefaclor Allergy Unknown Verified 12/03/16 16:16 Reaction Details Clavulanic Acid Allergy Unknown Verified 12/03/16 16:16 Reaction Details Lamotrigine Allergy Rash Verified 12/03/16 16:16 [place] Flavor Allergy Unknown Verified 12/03/16 16:16 Reaction Details Penicillins Allergy Unknown Verified 12/03/16 16:16 Reaction Details Quetiapine Allergy Tachycardia Verified 12/03/16 16:16 Sulfa Antibiotics Allergy Rash Verified 12/03/16 16:16 Sulfamethoxazole Allergy Rash Verified 12/03/16 16:16 w/Trimethoprim [From Bactrim] Risperidone [From Risperdal] AdvReac Unknown Rash Verified 12/03/16 16:16 PMH/Surg Hx/FS Hx/Imm Hx Endocrine/Hematology History: Denies: Hx Anticoagulant Therapy, Hx Diabetes, Hx Anemia, Hx Unexplained Bleeding Cardiovascular History: Reports: Other Cardiovascular Problems/Disorders - chest pain Denies: Hx Aneurysm, Hx Angina, Hx Angioplasty, Hx Auto Implanted Cardiovert Defib, Hx Cardiac Arrest, Hx Cardiomegaly, Hx Congenital Heart Disease, Hx Congestive Heart Failure, Hx Coronary Artery Disease, Hx Deep Vein Thrombosis, Hx Embolism, Hx Hypercholesterolemia, Hx Hypotension, Hx Hypertension, Hx Pacemaker/ICD, Hx Peripheral Vascular Disease, Hx Rheumatic Fever, Hx Syncope, Hx Valvular Heart Disease Respiratory History: Reports: Hx Asthma, Hx Chronic Bronchitis, Hx Pneumonia Denies: Hx Chronic Obstructive Pulmonary Disease (COPD), Hx Cystic Fibrosis, Hx Lung Cancer, Hx Pleural Effusion, Hx Pulmonary Edema, Hx Pulmonary Embolism, Hx Sleep Apnea, Other Respiratory Problems/Disorders GI History: Reports: Hx Gastroesophageal Reflux Disease Denies: Hx Cirrhosis, Hx Crohn's Disease, Hx Diverticulosis, Hx Gall Bladder Disease, Hx Gastrointestinal Bleed, Hx Hiatal Hernia, Hx Irritable Bowel, Hx Jaundice, Hx Obstructive Bowel, Hx Ileostomy, Hx Pyloric Stenosis, Hx Ulcer, Other GI Disorders History: Denies: Hx Renal Disease Musculoskeletal History: Reports: Hx Arthritis - Left shoulder, Hx Fibromyalgia - denies currently bothering her, Hx Tendonitis Denies: Hx Back Problems, Hx Bursitis, Hx Congenital Bone Abnormalities, Hx Gout, Hx Orthopedic Injury, Hx Osteoporosis, Hx Scoliosis, Other Musculoskeletal History Sensory History: Reports: Hx Contacts or Glasses Denies: Hx Cataracts, Hx Eye Injury, Hx Eye Prosthesis, Hx Glaucoma, Hx Legally Blind, Hx Macular Degeneration, Hx Vision Problem, Hx Hearing Aid, Other Sensory Impairments Opthamlomology History: Reports: Hx Contacts or Glasses Denies: Hx Cataracts, Hx Eye Injury, Hx Eye Prosthesis, Hx Glaucoma, Hx Legally Blind, Hx Macular Degeneration, Hx Vision Problem, Other Sensory Impairments Neurological History: Reports: Hx Headaches Denies: Hx Dementia, Hx Developmental Delay, Hx Migraine - patient denied, Hx Nerve Disease, Hx Seizures, Hx Spinal Cord Injury, Hx Transient Ischemic Attacks (TIA), Other Neuro Impairments/Disorders Psychiatric History: Reports: Hx Anxiety, Hx Attention Deficit Hyperactivity Disorder, Hx Depression, Hx Post Traumatic Stress Disorder, Hx Inpatient Treatment, Hx Community Mental Health Tx, Hx Schizophrenia, Hx Bipolar Disorder , Hx Suicide Attempt, Hx of Violent Episodes Against Others Denies: Hx Eating Disorder, Hx Panic Disorder, Hx Substance Abuse, Other Psychiatric Issues/Disorders - Surgical History Surgery Procedure, Year, and Place: Left Knee. Left Foot (2009) Hx Anesthesia Reactions: No - Immunization History Date of Tetanus Vaccine: unk Infectious Disease History: No Infectious Disease History: Reports: Hx of Known/Suspected MRSA - 3 years ago Denies: Hx Hepatitis, Hx Shingles, Hx Tuberculosis, Hx Known/Suspected VRE, Hx Known/Suspected VRSA, History Other Infectious Disease, Traveled Outside the [place] in Last 30 Days - Family History Known Family History: Positive: Hypertension, Diabetes, Other - Mother from cancer, HLD. Father has depression and anxiety - Social History Alcohol Use: Occasionally Alcohol Amount: 1-2 drinks Hx Substance Use: No Substance Use Type: Reports: None Substance Use Comment - Amount & Last Used: Denies. Hx Tobacco Use: Yes Smoking Status (MU): Heavy Every Day Tobacco Smoker Type: Cigarettes Amount Used/How Often: 3/4 TO 1 PPD Length of Time of Smoking/Using Tobacco: SINCE AGE 11 Y.O. Have You Smoked in the Last Year: Yes Review of Systems Constitutional: Negative Positive: Depressed, Other - See HPI. All Other Systems Reviewed And Are Negative: Yes Physical Exam Triage Information Reviewed: Yes Vital Signs On Initial Exam: Initial Vitals Temp Pulse Resp BP Pulse Ox 98.3 F 109 16 140/94 99 12/24/16 16:58 12/24/16 16:58 12/24/16 16:58 12/24/16 16:58 12/24/16 16:58 Vital Signs Reviewed: Yes Appearance: Positive: Well-Appearing, No Pain Distress Skin: Positive: Warm, Skin Color Reflects Adequate Perfusion, Dry Head/Face: Positive: Normal Head/Face Inspection Eyes: Positive: EOMI, SHANON Neck: Positive: Supple, Nontender Respiratory/Lung Sounds: Positive: Clear to Auscultation, Breath Sounds Present Cardiovascular: Positive: RRR Abdomen Description: Positive: Nontender, Soft Bowel Sounds: Positive: Present Musculoskeletal: Positive: Normal, Strength/ROM Intact Neurological: Positive: Normal, Sensory/Motor Intact, Alert, Oriented to Person Place, Time - Roddy Coma Scale Coma Scale Total: 15 Diagnostics - Vital Signs Vital Signs Temp Pulse Resp BP Pulse Ox 12/24/16 16:59 98.3 F 107 17 140/93 99 12/24/16 16:58 98.3 F 109 16 140/94 99 - Laboratory Lab Results: Lab Results 12/24/16 12/24/16 12/24/16 Range/Units 17:16 17:16 17:42 WBC 11.2 H (3.5-10.8) 10^3/ul RBC 5.00 (4.0-5.4) 10^6/ul Hgb 13.5 (12.0-16.0) g/dl Hct 42 (35-47) % MCV 83 (80-97) fL MCH 27 (27-31) pg MCHC 32 (31-36) g/dl RDW 16 H (10.5-15) % Plt Count 354 (150-450) 10^3/ul MPV 7 L (7.4-10.4) um3 Neut % (Auto) 69.7 (38-83) % Lymph % (Auto) 21.2 L (25-47) % [place] % (Auto) 6.3 (1-9) % Eos % (Auto) 2.0 (0-6) % Baso % (Auto) 0.8 (0-2) % Absolute Neuts (auto) 7.8 H (1.5-7.7) 10^3/ul Absolute Lymphs (auto) 2.4 (1.0-4.8) 10^3/ul Absolute Monos (auto) 0.7 (0-0.8) 10^3/ul Absolute Eos (auto) 0.2 (0-0.6) 10^3/ul Absolute Basos (auto) 0.1 (0-0.2) 10^3/ul Absolute Nucleated RBC 0.01 10^3/ul Nucleated RBC % 0.1 Sodium (133-145) mmol/L Potassium (3.5-5.0) mmol/L Chloride (101-111) mmol/L Carbon Dioxide (22-32) mmol/L Anion Gap (2-11) mmol/L BUN (6-24) mg/dL Creatinine (0.51-0.95) mg/dL Est GFR ( Amer) (>60) Est GFR (Non-Af Amer) (>60) BUN/Creatinine Ratio (8-20) Glucose (70-100) mg/dL Calcium (8.6-10.3) mg/dL Total Bilirubin (0.2-1.0) mg/dL AST (13-39) U/L ALT (7-52) U/L Alkaline Phosphatase (34-104) U/L Total Protein (6.4-8.9) g/dL Albumin (3.2-5.2) g/dL Globulin (2-4) g/dL Albumin/Globulin Ratio (1-3) TSH (0.34-5.60) mcIU/mL Beta HCG, Quant mIU/mL Urine Color Straw Urine Appearance Clear Urine pH 7.0 (5-9) Ur Specific [place] 1.003 L (1.010-1.030) Urine Protein Negative (Negative) Urine Ketones Negative (Negative) Urine Blood Negative (Negative) Urine Nitrate Negative (Negative) Urine Bilirubin Negative (Negative) Urine Urobilinogen Negative (Negative) Ur Leukocyte Esterase Negative (Negative) Urine Glucose Negative (Negative) Salicylates (<30) mg/dL Urine Opiates Screen None detected (None Detect) Acetaminophen mcg/mL Ur Barbiturates Screen None detected (None Detect) Ur Phencyclidine Scrn None detected (None Detect) Ur Amphetamines Screen None detected (None Detect) U Benzodiazepines Scrn None detected (None Detect) Urine Cocaine Screen None detected (None Detect) U Cannabinoids Screen None detected (None Detect) Serum Alcohol (<10) mg/dL 12/24/16 Range/Units 17:42 WBC (3.5-10.8) 10^3/ul RBC (4.0-5.4) 10^6/ul Hgb (12.0-16.0) g/dl Hct (35-47) % MCV (80-97) fL MCH (27-31) pg MCHC (31-36) g/dl RDW (10.5-15) % Plt Count (150-450) 10^3/ul MPV (7.4-10.4) um3 Neut % (Auto) (38-83) % Lymph % (Auto) (25-47) % [place] % (Auto) (1-9) % Eos % (Auto) (0-6) % Baso % (Auto) (0-2) % Absolute Neuts (auto) (1.5-7.7) 10^3/ul Absolute Lymphs (auto) (1.0-4.8) 10^3/ul Absolute Monos (auto) (0-0.8) 10^3/ul Absolute Eos (auto) (0-0.6) 10^3/ul Absolute Basos (auto) (0-0.2) 10^3/ul Absolute Nucleated RBC 10^3/ul Nucleated RBC % Sodium 138 (133-145) mmol/L Potassium 3.8 (3.5-5.0) mmol/L Chloride 105 (101-111) mmol/L Carbon Dioxide 23 (22-32) mmol/L Anion Gap 10 (2-11) mmol/L BUN 10 (6-24) mg/dL Creatinine 0.69 (0.51-0.95) mg/dL Est GFR ( Amer) 128.5 (>60) Est GFR (Non-Af Amer) 99.9 (>60) BUN/Creatinine Ratio 14.5 (8-20) Glucose 98 (70-100) mg/dL Calcium 9.9 (8.6-10.3) mg/dL Total Bilirubin 0.30 (0.2-1.0) mg/dL AST 21 (13-39) U/L ALT 18 (7-52) U/L Alkaline Phosphatase 111 H (34-104) U/L Total Protein 7.6 (6.4-8.9) g/dL Albumin 4.3 (3.2-5.2) g/dL Globulin 3.3 (2-4) g/dL Albumin/Globulin Ratio 1.3 (1-3) TSH 1.09 (0.34-5.60) mcIU/mL Beta HCG, Quant < 0.60 mIU/mL Urine Color Urine Appearance Urine pH (5-9) Ur Specific [place] (1.010-1.030) Urine Protein (Negative) Urine Ketones (Negative) Urine Blood (Negative) Urine Nitrate (Negative) Urine Bilirubin (Negative) Urine Urobilinogen (Negative) Ur Leukocyte Esterase (Negative) Urine Glucose (Negative) Salicylates < 2.50 (<30) mg/dL Urine Opiates Screen (None Detect) Acetaminophen < 15 mcg/mL Ur Barbiturates Screen (None Detect) Ur Phencyclidine Scrn (None Detect) Ur Amphetamines Screen (None Detect) U Benzodiazepines Scrn (None Detect) Urine Cocaine Screen (None Detect) U Cannabinoids Screen (None Detect) Serum Alcohol < 10 (<10) mg/dL Result Diagrams: 12/24/16 17:42 12/24/16 17:42 Lab Statement: Any lab studies that have been ordered have been reviewed, and results considered in the medical decision making process. Course/Dx - Course Course Of Treatment: No critical care time. MHE pending at shift change. - Differential Dx/Clinical Impression Provider Diagnosis: Mental health problem Discharge - Discharge Plan Condition: Stable Disposition: OTHER Discharge Disposition Comment: . Referrals: Pam MCFARLANE,Collins Conte [Primary Care Provider] - The documentation as recorded by the Naa pringle Salem accurately reflects the service I personally performed and the decisions made by me, David Ann MD.
== END 2016-12-24 20:04 ==
LOC: ED 16:49
DX: F32.9 Major depressive disorder, single episode, unspecified (principal); F17.210 Nicotine dependence, cigarettes, uncomplicated; R45.851 Suicidal ideations
CPT/HCPCS: 36415; 80053; 80307; 80320; 80329; 81003; 84443; 84702; 85025; 99284; G0480

== ENCOUNTER 2017-01-04 17:12 | Inpatient (IN) | payer MEDICAID ==
[2017-01-04 18:40] LABS: Hematocrit 40 % (35-47); Mean Corpuscular HGB Conc 33 g/dl (31-36); Mean Corpuscular Hemoglobin 27 pg (27-31); Mean Corpuscular Volume 83 fL (80-97); Mean Platelet Volume 8 um3 (7.4-10.4); Red Cell Distribution Width 16 % (10.5-15); White Blood Count 13.3 10^3/ul (3.5-10.8)
[2017-01-04 18:58] LABS: Benzodiazepine Urine Screen None Detected (None Detect)
[2017-01-04 18:59] LABS: ALT 25 U/L (7-52); AST 25 U/L (13-39); Albumin 4.2 g/dL (3.2-5.2); Alkaline Phosphatase 119 U/L (34-104); Anion Gap 9 mmol/L (2-11); BUN/Creatinine Ratio 9.6 (8-20); Blood Urea Nitrogen 7 mg/dL (6-24); CO2 Carbon Dioxide 24 mmol/L (22-32); Calcium 9.7 mg/dL (8.6-10.3); Chloride 104 mmol/L (101-111); EGFR African American 120.4 (>60); EGFR Non-African American 93.6 (>60); Globulin 3.1 g/dL (2-4); Glucose 101 mg/dL (70-100); Potassium 3.7 mmol/L (3.5-5.0); Sodium 137 mmol/L (133-145); Total Protein 7.3 g/dL (6.4-8.9)
[2017-01-04 19:02] LABS: Urine Bilirubin Negative (Negative); Urine Glucose Negative (Negative); Urine Nitrite Negative (Negative)
[2017-01-04 19:22] LABS: Acetaminophen < 15 mcg/mL; Alcohol < 10 mg/dL (<10); Salicylate < 2.50 mg/dL (<30)
[2017-01-04 19:31] LABS: TSH (Thyroid Stimulating Horm) 1.41 mcIU/mL (0.34-5.60)
[2017-01-04] MEDS ORDERED: Benztropine TAB* 1 MG ONE (23:41)
[2017-01-04] MEDS ORDERED: clonazePAM TAB(*) 0.5 MG ONE (23:41)
[2017-01-04] MEDS ORDERED: CloZAPine TAB* 25 MG TAB ONE (23:42)
[2017-01-04] MEDS ORDERED: chlorproMAZINE TAB* 100 MG ONE (23:42)
[2017-01-04] MEDS ORDERED: Haloperidol TAB* 5 MG ONE (23:42)
[2017-01-04] MEDS ORDERED: Gabapentin CAP(*) 300 MG ONE (23:43)
[2017-01-05] MEDS ORDERED: Al Hydrox/Mg Hydrox/Simet LIQ* 30 ML UDC PO PRN (00:09)
[2017-01-05] MEDS ORDERED: Acetaminophen TAB* 325 MG PO PRN (00:09)
[2017-01-05] MEDS ORDERED: Mouth Piece, Nicotine* 1 EACH CARTRIDGE INH SCH (00:09)
[2017-01-05] MEDS ORDERED: Nicotine GUM* 2 MG PO PRN (00:09)
[2017-01-05] MEDS ORDERED: chlorproMAZINE TAB* 50 MG PO PRN (00:16)
[2017-01-05] MEDS ORDERED: Albuterol HFA INHALER* 8 gm MDI INH PRN (00:17)
[2017-01-05] MEDS ORDERED: Albuterol/Ipratropium NEB.SOL* Albuterol 2.5 MG/Ipratropium 0.5 MG 3 ML INH PRN (00:23)
[2017-01-05] MEDS: chlorproMAZINE TAB* 200 MG PO SCH ×2 (00:38→20:33)
[2017-01-05] MEDS: clonazePAM TAB(*) 0.5 MG PO SCH ×2 (10:29→20:34)
[2017-01-05] MEDS: Benztropine TAB* 1 MG PO SCH ×2 (10:33→20:34)
[2017-01-05] MEDS: Haloperidol TAB* 5 MG PO SCH ×2 (10:34→20:33)
[2017-01-05] MEDS: Gabapentin CAP(*) 300 MG PO SCH ×2 (10:35→20:33)
[2017-01-05] MEDS: CloZAPine TAB* 25 MG TAB PO SCH ×2 (10:35→20:34)
[2017-01-05] MEDS: Vitamin THERAPEUTIC TAB PO SCH (10:38)
[2017-01-05] MEDS ORDERED: Zolpidem TAB* 5 MG PO PRN (12:55)
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
[2017-01-06] MEDS: Benztropine TAB* 1 MG PO SCH ×2 (08:12→20:28)
[2017-01-06] MEDS: CloZAPine TAB* 25 MG TAB PO SCH ×2 (08:13→20:27)
[2017-01-06] MEDS: Haloperidol TAB* 5 MG PO SCH ×2 (08:13→20:27)
[2017-01-06] MEDS: Vitamin THERAPEUTIC TAB PO SCH (08:13)
[2017-01-06] MEDS: clonazePAM TAB(*) 0.5 MG PO SCH ×2 (08:14→20:27)
[2017-01-06] MEDS: Gabapentin CAP(*) 300 MG PO SCH ×2 (08:14→20:26)
[2017-01-06] MEDS: Nicotine Inhaler* 10 MG AMP INH PRN ×3 (08:16→20:31)
--- NOTE | 2017-01-06 15:00 | PN ---
Subjective - Subjective Service Type: 07222 Hosp care 15 min low complexity Subjective: The patient appears to have slept well last night and is in better spirits this morning with brighter affect and a reduction in the intensity and volume of AH. She denies SI. Patient feels she might be safe returning home tomorrow. Objective - Appearance Appearance: Well Developed/Nourished Dysmorphic Features: No Hygiene: Normal Grooming: Fairly Well Kept - Behavior Psychomotor Activities: Normal Exhibits Abnormal Movement: No - Attitude and Relatedness Attitude and Relatedness: Cooperative Eye Contact: Good - Speech Quality: Unpressured Latencies: Normal Quantity: Appropriate - Mood Patient's Decription of Mood: "Good" - Affect Observed Affect: Fair Affect Consistent with: Euthymia - Thought Process Patient's Thought Process: Coherent Thought Content: No Passive Wish, No Suicidal Planning, No Homicidal Ideation, No Paranoid Ideation - Sensorium Experiencing Hallucinations: Yes Type of Hallucinations: Visual: No, Auditory: Yes, Command: No - Level of Consciousness Level of Consciousness: Alert Orientation: Yes Intact, Yes Orientated to Time, Yes Orientated to Place, Yes Orientated to Person - Impulse Control Impulse Control: Tenuous - Insight and Judgement Insight and Judgement: Fair - Group Participation Particating in Group Activities: No - Medication Management Medication Management Adherence: Yes - Additional Observations Comments: The patient's metabolic labs were drawn here on November 14, 2016 with the following results: Total Cholesterol: 147 Triglycerides: 109 LDL: 79 HDL: 46.1 HgbA1c: 5.8% Assessment - Assessment Merits Inpatient Hospitalization: Consolidate Improvements, Pending Safe DC Plan Inpatient DSM-IV Dx: Schizoaffective DO, Bipolar Type Clinical Impression: 31 y.o. , white female with a history of schizoaffective DO, PTSD and borderline PD arrives via ambulance seeking voluntary admission for command AH telling her to kill herself. Plan - Plan Treatment Plan: Name: ADRIANA GOTTI Birthdate: 1985 [id number] The patient has been placed on her outpatient med regimen, including oral haloperidol, chlorpromazine, clozapine, gabapentin and clonazepam. We have submitted a blood sample for clozapine level and await results. She seems to have improved with conservative milieu therapy. Consider d/c to home tomorrow. Continued Medication Management: Continue Outpt Medication Medications: Current Medications Acetaminophen (Tylenol Tab*) 650 mg PO Q4H PRN PRN Reason: PAIN or TEMP > 101 F Al Hydrox/Mg Hydrox/Simethicone (Maalox Plus*) 30 ml PO Q4H PRN PRN Reason: INDIGESTION Albuterol (Ventolin Hfa Inhaler*) 2 puff INH Q4H PRN PRN Reason: SOB/WHEEZING Last Admin: 01/05/17 20:35 Dose: 2 puff Albuterol/Ipratropium (Duoneb (Albuterol 2.5 Mg/Ipratropium 0.5 Mg)) 1 neb INH Q4H PRN PRN Reason: SOB/WHEEZING Benztropine Mesylate (Cogentin Tab*) 0.5 mg PO BID [facility] Last Admin: 01/06/17 08:12 Dose: 0.5 mg Chlorpromazine HCl (Thorazine Tab*) 200 mg PO BEDTIME [facility] Last Admin: 01/05/17 20:33 Dose: 200 mg Chlorpromazine HCl (Thorazine Tab*) 50 mg PO Q4H PRN PRN Reason: AGITATION/ANXIETY Clonazepam (Klonopin Tab(*)) 0.5 mg PO BID [facility] Last Admin: 01/06/17 08:14 Dose: 0.5 mg Clozapine (Clozapine Tab*) 75 mg PO BID [facility] Last Admin: 01/06/17 08:13 Dose: 75 mg Device (Nicotine Mouth Piece*) 1 each INH .CARTR[place]GE [facility] Last Admin: 01/06/17 08:16 Dose: 1 each Gabapentin (Neurontin Cap(*)) 600 mg PO BID [facility] Last Admin: 01/06/17 08:14 Dose: 600 mg Haloperidol (Haldol Tab*) 5 mg PO BID [facility] Last Admin: 01/06/17 08:13 Dose: 5 mg Multivitamins (Theragran Tab*) 1 tab PO DAILY [facility] Last Admin: 01/06/17 08:13 Dose: Not Given Nicotine (Nicotine Inhaler*) 10 mg INH Q2H PRN PRN Reason: CRAVING Last Admin: 01/06/17 08:16 Dose: 10 mg Nicotine Polacrilex (Nicotine Gum*) 2 mg PO Q2H PRN PRN Reason: CRAVING Zolpidem Tartrate (Ambien Tab*) 5 mg PO BEDTIME PRN PRN Reason: INSOMNIA - Discharge Plan Discharge Plan: Outpatient Follow Up Outpatient Program: [facility]
[2017-01-06] MEDS: chlorproMAZINE TAB* 200 MG PO SCH (20:26)
[2017-01-07 07:57] VITALS: BP 132/80
[2017-01-07] MEDS: Gabapentin CAP(*) 300 MG PO SCH (08:23)
[2017-01-07] MEDS: clonazePAM TAB(*) 0.5 MG PO SCH (08:23)
[2017-01-07] MEDS: Benztropine TAB* 1 MG PO SCH (08:24)
[2017-01-07] MEDS: Vitamin THERAPEUTIC TAB PO SCH (08:29)
[2017-01-07] MEDS: Haloperidol TAB* 5 MG PO SCH (08:29)
[2017-01-07] MEDS: Nicotine Inhaler* 10 MG AMP INH PRN ×2 (08:37→11:07)
[2017-01-07] MEDS: CloZAPine TAB* 25 MG TAB PO SCH (09:27)
[2017-01-07 23:43] LABS: Clozapine 240 ng/mL (>350); Norclozapine 163 ng/mL
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
--- NOTE | 2017-01-11 11:22 | ED ---
I, Oh,Tina, scribed for Rk Zapata MD on 01/04/17 at 1719 . Psychiatric Complaint - HPI Summary HPI Summary: This 36 y/o female presents to ED via ambulance for auditory hallucination today. Pt denies any SI but does report that her auditory hallucination is telling her to harm herself via OD. Pt admits that she does have psychiatric illness that she is controlling with medications, but was not able to recall med names. PMHx includes bipolar, schizophrenia, PTSD, Tourette syndrome, and self cutting. - History Of Current Complaint Hx Obtained From: Patient, Medical Records Hx Last Menstrual Period: - September 2016 Timing: Constant Severity Initially: Moderate Severity Currently: Moderate Aggravating Factor(s): Nothing Alleviating Factor(s): Nothing Related History: Positive For: Prior Psychiatric Issues Has Suicidal: Denies: Thoughts - Allergies/Home Medications Allergies/Adverse Reactions: Allergies Allergy/AdvReac Type Severity Reaction Status Date / Time Metoprolol Allergy Unknown Rash Verified 01/04/17 18:30 Trazodone Allergy Unknown Unknown Verified 01/04/17 18:30 Reaction Details Amoxicillin Allergy Unknown Verified 01/04/17 18:30 Reaction Details Cefaclor Allergy Unknown Verified 01/04/17 18:30 Reaction Details Clavulanic Acid Allergy Unknown Verified 01/04/17 18:30 Reaction Details Lamotrigine Allergy Rash Verified 01/04/17 18:30 [place] Flavor Allergy Unknown Verified 01/04/17 18:30 Reaction Details Penicillins Allergy Unknown Verified 01/04/17 18:30 Reaction Details Quetiapine Allergy Tachycardia Verified 01/04/17 18:30 Sulfa Antibiotics Allergy Rash Verified 01/04/17 18:30 Sulfamethoxazole Allergy Rash Verified 01/04/17 18:30 w/Trimethoprim [From Bactrim] Risperidone [From Risperdal] AdvReac Unknown Rash Verified 01/04/17 18:30 Home Medications: Home Medications CloZAPine TAB* 25 mg PO BID 01/04/17 [History Confirmed 01/04/17] CloZAPine TAB* 50 mg PO BID 01/04/17 [History Confirmed 01/04/17] chlorproMAZINE TAB* [Thorazine TAB*] 50 mg PO Q4HR PRN 01/04/17 [History Confirmed 01/04/17] PMH/Surg Hx/FS Hx/Imm Hx Endocrine/Hematology History: Denies: Hx Anticoagulant Therapy, Hx Diabetes, Hx Anemia, Hx Unexplained Bleeding Cardiovascular History: Reports: Other Cardiovascular Problems/Disorders - chest pain Denies: Hx Aneurysm, Hx Angina, Hx Angioplasty, Hx Auto Implanted Cardiovert Defib, Hx Cardiac Arrest, Hx Cardiomegaly, Hx Congenital Heart Disease, Hx Congestive Heart Failure, Hx Coronary Artery Disease, Hx Deep Vein Thrombosis, Hx Embolism, Hx Hypercholesterolemia, Hx Hypotension, Hx Hypertension, Hx Pacemaker/ICD, Hx Peripheral Vascular Disease, Hx Rheumatic Fever, Hx Syncope, Hx Valvular Heart Disease Respiratory History: Reports: Hx Asthma, Hx Chronic Bronchitis, Hx Pneumonia Denies: Hx Chronic Obstructive Pulmonary Disease (COPD), Hx Cystic Fibrosis, Hx Lung Cancer, Hx Pleural Effusion, Hx Pulmonary Edema, Hx Pulmonary Embolism, Hx Sleep Apnea, Other Respiratory Problems/Disorders GI History: Reports: Hx Gastroesophageal Reflux Disease Denies: Hx Cirrhosis, Hx Crohn's Disease, Hx Diverticulosis, Hx Gall Bladder Disease, Hx Gastrointestinal Bleed, Hx Hiatal Hernia, Hx Irritable Bowel, Hx Jaundice, Hx Obstructive Bowel, Hx Ileostomy, Hx Pyloric Stenosis, Hx Ulcer, Other GI Disorders History: Denies: Hx Renal Disease Musculoskeletal History: Reports: Hx Arthritis - Left shoulder, Hx Fibromyalgia - denies currently bothering her, Hx Tendonitis Denies: Hx Back Problems, Hx Bursitis, Hx Congenital Bone Abnormalities, Hx Gout, Hx Orthopedic Injury, Hx Osteoporosis, Hx Scoliosis, Other Musculoskeletal History Sensory History: Reports: Hx Contacts or Glasses Denies: Hx Cataracts, Hx Eye Injury, Hx Eye Prosthesis, Hx Glaucoma, Hx Legally Blind, Hx Macular Degeneration, Hx Vision Problem, Hx Hearing Aid, Other Sensory Impairments Opthamlomology History: Reports: Hx Contacts or Glasses Denies: Hx Cataracts, Hx Eye Injury, Hx Eye Prosthesis, Hx Glaucoma, Hx Legally Blind, Hx Macular Degeneration, Hx Vision Problem, Other Sensory Impairments Neurological History: Reports: Hx Headaches Denies: Hx Dementia, Hx Developmental Delay, Hx Migraine - patient denied, Hx Nerve Disease, Hx Seizures, Hx Spinal Cord Injury, Hx Transient Ischemic Attacks (TIA), Other Neuro Impairments/Disorders Psychiatric History: Reports: Hx Anxiety, Hx Attention Deficit Hyperactivity Disorder, Hx Depression, Hx Post Traumatic Stress Disorder, Hx Inpatient Treatment, Hx Community Mental Health Tx, Hx Schizophrenia, Hx Bipolar Disorder , Hx Suicide Attempt, Hx of Violent Episodes Against Others Denies: Hx Eating Disorder, Hx Panic Disorder, Hx Substance Abuse, Other Psychiatric Issues/Disorders - Surgical History Surgery Procedure, Year, and Place: Left Knee. Left Foot (2009) Hx Anesthesia Reactions: No - Immunization History Date of Tetanus Vaccine: unk Infectious Disease History: Reports: Hx of Known/Suspected MRSA - 3 years ago Denies: Hx Hepatitis, Hx Shingles, Hx Tuberculosis, Hx Known/Suspected VRE, Hx Known/Suspected VRSA, History Other Infectious Disease - Family History Known Family History: Positive: Hypertension, Diabetes, Other - Mother from cancer, HLD. Father has depression and anxiety - Social History Alcohol Use: Occasionally Alcohol Amount: 1-2 drinks Hx Substance Use: No Substance Use Type: Reports: None Substance Use Comment - Amount & Last Used: Denies. Hx Tobacco Use: Yes Smoking Status (MU): Heavy Every Day Tobacco Smoker Type: Cigarettes Amount Used/How Often: 3/4 TO 1 PPD Length of Time of Smoking/Using Tobacco: SINCE AGE 11 Y.O. Have You Smoked in the Last Year: Yes Review of Systems Negative: Fever, Chills Negative: Erythema Negative: Sore Throat Negative: Chest Pain Negative: Shortness Of Breath, Cough Negative: Abdominal Pain Negative: see HPI, dysuria Negative: Myalgia, Edema Negative: Rash Neurological: Other - Negative to dizziness All Other Systems Reviewed And Are Negative: Yes Physical Exam - Summary Physical Exam Summary: Constitutional: Well-developed, Well-nourished, Alert. (-) Distressed Skin: Warm, Dry HENT: Normocephalic; Atraumatic Eyes: Conjunctiva normal Neck: Musculoskeletal ROM normal neck. (-) JVD, (-) Stridor, (-) Tracheal deviation Cardio: Rhythm regular, rate normal, Heart sounds normal; Intact distal pulses; The pedal pulses are 2+ and symmetric. Radial pulses are 2+ and symmetric. (-) Murmur Pulmonary/Chest wall: Effort normal. (-) Respiratory distress, (-) Wheezes, (-) Rales Abd: Soft, (-) Tenderness, (-) Distension, (-) Guarding, (-) Rebound Musculoskeletal: (-) Edema Lymph: (-) Cervical adenopathy Neuro: Alert, Oriented x3 Psych: Mood and affect Normal Triage Information Reviewed: Yes Vital Signs On Initial Exam: Initial Vitals Temp Pulse Resp BP Pulse Ox 37.2 C 126 16 135/78 98 01/04/17 17:15 01/04/17 17:15 01/04/17 17:15 01/04/17 17:15 01/04/17 17:15 Vital Signs Reviewed: Yes Diagnostics - Vital Signs Vital Signs Temp Pulse Resp BP Pulse Ox 01/04/17 19:20 37.1 C 119 16 137/90 98 01/04/17 17:15 37.2 C 126 16 135/78 98 - Laboratory Lab Results: Lab Results 01/04/17 01/04/17 01/04/17 Range/Units 18:14 18:14 18:27 WBC 13.3 H (3.5-10.8) 10^3/ul RBC 4.80 (4.0-5.4) 10^6/ul Hgb 13.0 (12.0-16.0) g/dl Hct 40 (35-47) % MCV 83 (80-97) fL MCH 27 (27-31) pg MCHC 33 (31-36) g/dl RDW 16 H (10.5-15) % Plt Count 356 (150-450) 10^3/ul MPV 8 (7.4-10.4) um3 Neut % (Auto) 67.7 (38-83) % Lymph % (Auto) 21.8 L (25-47) % [place] % (Auto) 7.5 (1-9) % Eos % (Auto) 2.3 (0-6) % Baso % (Auto) 0.7 (0-2) % Absolute Neuts (auto) 9.0 H (1.5-7.7) 10^3/ul Absolute Lymphs (auto) 2.9 (1.0-4.8) 10^3/ul Absolute Monos (auto) 1.0 H (0-0.8) 10^3/ul Absolute Eos (auto) 0.3 (0-0.6) 10^3/ul Absolute Basos (auto) 0.1 (0-0.2) 10^3/ul Absolute Nucleated RBC 0 10^3/ul Nucleated RBC % 0 Sodium (133-145) mmol/L Potassium (3.5-5.0) mmol/L Chloride (101-111) mmol/L Carbon Dioxide (22-32) mmol/L Anion Gap (2-11) mmol/L BUN (6-24) mg/dL Creatinine (0.51-0.95) mg/dL Est GFR ( Amer) (>60) Est GFR (Non-Af Amer) (>60) BUN/Creatinine Ratio (8-20) Glucose (70-100) mg/dL Calcium (8.6-10.3) mg/dL Total Bilirubin (0.2-1.0) mg/dL AST (13-39) U/L ALT (7-52) U/L Alkaline Phosphatase (34-104) U/L Total Protein (6.4-8.9) g/dL Albumin (3.2-5.2) g/dL Globulin (2-4) g/dL Albumin/Globulin Ratio (1-3) TSH (0.34-5.60) mcIU/mL Beta HCG, Quant mIU/mL Urine Color Straw Urine Appearance Clear Urine pH 6.0 (5-9) Ur Specific [place] 1.002 L (1.010-1.030) Urine Protein Negative (Negative) Urine Ketones Negative (Negative) Urine Blood Negative (Negative) Urine Nitrate Negative (Negative) Urine Bilirubin Negative (Negative) Urine Urobilinogen Negative (Negative) Ur Leukocyte Esterase Negative (Negative) Urine Glucose Negative (Negative) Salicylates (<30) mg/dL Urine Opiates Screen None detected (None Detect) Acetaminophen mcg/mL Ur Barbiturates Screen None detected (None Detect) Ur Phencyclidine Scrn None detected (None Detect) Ur Amphetamines Screen None detected (None Detect) U Benzodiazepines Scrn None detected (None Detect) Urine Cocaine Screen None detected (None Detect) U Cannabinoids Screen None detected (None Detect) Serum Alcohol (<10) mg/dL 01/04/17 Range/Units 18:27 WBC (3.5-10.8) 10^3/ul RBC (4.0-5.4) 10^6/ul Hgb (12.0-16.0) g/dl Hct (35-47) % MCV (80-97) fL MCH (27-31) pg MCHC (31-36) g/dl RDW (10.5-15) % Plt Count (150-450) 10^3/ul MPV (7.4-10.4) um3 Neut % (Auto) (38-83) % Lymph % (Auto) (25-47) % [place] % (Auto) (1-9) % Eos % (Auto) (0-6) % Baso % (Auto) (0-2) % Absolute Neuts (auto) (1.5-7.7) 10^3/ul Absolute Lymphs (auto) (1.0-4.8) 10^3/ul Absolute Monos (auto) (0-0.8) 10^3/ul Absolute Eos (auto) (0-0.6) 10^3/ul Absolute Basos (auto) (0-0.2) 10^3/ul Absolute Nucleated RBC 10^3/ul Nucleated RBC % Sodium 137 (133-145) mmol/L Potassium 3.7 (3.5-5.0) mmol/L Chloride 104 (101-111) mmol/L Carbon Dioxide 24 (22-32) mmol/L Anion Gap 9 (2-11) mmol/L BUN 7 (6-24) mg/dL Creatinine 0.73 (0.51-0.95) mg/dL Est GFR ( Amer) 120.4 (>60) Est GFR (Non-Af Amer) 93.6 (>60) BUN/Creatinine Ratio 9.6 (8-20) Glucose 101 H (70-100) mg/dL Calcium 9.7 (8.6-10.3) mg/dL Total Bilirubin 0.20 (0.2-1.0) mg/dL AST 25 (13-39) U/L ALT 25 (7-52) U/L Alkaline Phosphatase 119 H (34-104) U/L Total Protein 7.3 (6.4-8.9) g/dL Albumin 4.2 (3.2-5.2) g/dL Globulin 3.1 (2-4) g/dL Albumin/Globulin Ratio 1.4 (1-3) TSH 1.41 (0.34-5.60) mcIU/mL Beta HCG, Quant < 0.60 mIU/mL Urine Color Urine Appearance Urine pH (5-9) Ur Specific [place] (1.010-1.030) Urine Protein (Negative) Urine Ketones (Negative) Urine Blood (Negative) Urine Nitrate (Negative) Urine Bilirubin (Negative) Urine Urobilinogen (Negative) Ur Leukocyte Esterase (Negative) Urine Glucose (Negative) Salicylates < 2.50 (<30) mg/dL Urine Opiates Screen (None Detect) Acetaminophen < 15 mcg/mL Ur Barbiturates Screen (None Detect) Ur Phencyclidine Scrn (None Detect) Ur Amphetamines Screen (None Detect) U Benzodiazepines Scrn (None Detect) Urine Cocaine Screen (None Detect) U Cannabinoids Screen (None Detect) Serum Alcohol < 10 (<10) mg/dL Result Diagrams: 01/04/17 18:27 01/04/17 18:27 Lab Statement: Any lab studies that have been ordered have been reviewed, and results considered in the medical decision making process. Course/Dx - Differential Dx/Clinical Impression Provider Diagnosis: History of posttraumatic stress disorder (PTSD), Schizoaffective disorder, Mood disorder - Physician Notifications Patient Is Medically Stable For: Psych Evaluation - at 1719 PM Discharge - Discharge Plan Condition: Improved Disposition: OTHER Discharge Disposition Comment: Signed out at shift change. Pending [facility]. The documentation as recorded by the Mic pringle Soohyun accurately reflects the service I personally performed and the decisions made by me, Rk Zapata MD.
== END 2017-01-07 13:00 | disposition home or self-care (01) | DRG 750 ==
LOC: ED 17:12 → BSU 22:40
PROVIDERS: ADMIT Psychiatry & Neurology Psychiatry; ATTEND Psychiatry & Neurology Psychiatry
DX: F25.1 Schizoaffective disorder, depressive type (principal); E66.3 Overweight; F43.10 Post-traumatic stress disorder, unspecified; F60.3 Borderline personality disorder; J45.909 Unspecified asthma, uncomplicated; F41.9 Anxiety disorder, unspecified; M79.7 Fibromyalgia; F17.210 Nicotine dependence, cigarettes, uncomplicated; Z91.410 Personal history of adult physical and sexual abuse; Z88.1 Allergy status to other antibiotic agents; Z88.8 Allergy status to other drugs, medicaments and biological substances; Z88.0 Allergy status to penicillin; Z81.8 Family history of other mental and behavioral disorders; Z81.1 Family history of alcohol abuse and dependence; Z56.0 Unemployment, unspecified; Z68.37 Body mass index [BMI] 37.0-37.9, adult
CPT/HCPCS: 36415; 80053; 80159; 80307; 80320; 80329; 81003; 84443; 84702; 85025; A9270-GY; G0480

== ENCOUNTER 2017-01-13 15:52 | Inpatient (IN) | payer MEDICAID ==
[2017-01-13 16:37] LABS: Hematocrit 42 % (35-47); Hemoglobin 13.6 g/dl (12.0-16.0); Mean Corpuscular HGB Conc 33 g/dl (31-36); Mean Corpuscular Hemoglobin 27 pg (27-31); Mean Corpuscular Volume 84 fL (80-97); Mean Platelet Volume 8 um3 (7.4-10.4); Red Blood Count 4.97 10^6/ul (4.0-5.4); Red Cell Distribution Width 16 % (10.5-15); White Blood Count 14.3 10^3/ul (3.5-10.8)
[2017-01-13 16:42] LABS: Urine Bilirubin Negative (Negative); Urine Glucose Negative (Negative); Urine Nitrite Negative (Negative)
[2017-01-13 16:51] LABS: ALT 17 U/L (7-52); AST 18 U/L (13-39); Albumin 4.4 g/dL (3.2-5.2); Alkaline Phosphatase 105 U/L (34-104); Anion Gap 8 mmol/L (2-11); BUN/Creatinine Ratio 7.2 (8-20); Blood Urea Nitrogen 5 mg/dL (6-24); CO2 Carbon Dioxide 26 mmol/L (22-32); Calcium 9.7 mg/dL (8.6-10.3); Chloride 105 mmol/L (101-111); EGFR African American 128.5 (>60); EGFR Non-African American 99.9 (>60); Globulin 3.5 g/dL (2-4); Glucose 81 mg/dL (70-100); Potassium 3.4 mmol/L (3.5-5.0); Sodium 139 mmol/L (133-145); Total Protein 7.9 g/dL (6.4-8.9)
[2017-01-13 16:53] LABS: Benzodiazepine Urine Screen None Detected (None Detect)
[2017-01-13 17:25] LABS: Acetaminophen < 15 mcg/mL; Alcohol < 10 mg/dL (<10); Salicylate < 2.50 mg/dL (<30)
[2017-01-13 17:36] LABS: TSH (Thyroid Stimulating Horm) 1.25 mcIU/mL (0.34-5.60)
[2017-01-13] MEDS ORDERED: Al Hydrox/Mg Hydrox/Simet LIQ* 30 ML UDC PO PRN (20:04)
[2017-01-13] MEDS: chlorproMAZINE TAB* 100 MG PO SCH (21:58)
[2017-01-13] MEDS: Benztropine TAB* 1 MG PO SCH (21:58)
[2017-01-13] MEDS: Haloperidol TAB* 5 MG PO SCH (21:59)
[2017-01-13] MEDS: CloZAPine TAB* 25 MG TAB PO SCH (21:59)
[2017-01-13] MEDS: Gabapentin CAP(*) 300 MG PO SCH (21:59)
--- NOTE | 2017-01-13 22:30 | ED ---
Nika Fine Alok, scribed for Isaak Simms MD on 01/13/17 at 1623 . Psychiatric Complaint - HPI Summary HPI Summary: 31F presents to the ED for psychiatric evaluation following 2-3 days of auditory hallucinations with suicidal ideation. Pt states that she herself does not want to kill herself but that her auditory hallucinations are compelling her to commit suicide by OD. Pt tried taking her Thorazine PRN with no alleviation. Pt denies taking medications more than rx. PMHx includes schizophrenia, bipolar disorder, and anxiety. - History Of Current Complaint Chief Complaint: [facility] Time Seen by Provider: 01/13/17 16:12 Hx Obtained From: Patient Hx Last Menstrual Period: Irregular- September 2016 Onset/Duration: Lasting Days, Still Present Timing: Constant Severity Initially: Moderate Severity Currently: Moderate Character: Anxious Aggravating Factor(s): Nothing Alleviating Factor(s): Nothing Associated Signs And Symptoms: Positive: Hallucinating Has Suicidal: Reports: Thoughts, With A Plan - Allergies/Home Medications Allergies/Adverse Reactions: Allergies Allergy/AdvReac Type Severity Reaction Status Date / Time Metoprolol Allergy Unknown Rash Verified 01/04/17 18:30 Trazodone Allergy Unknown Unknown Verified 01/04/17 18:30 Reaction Details Amoxicillin Allergy Unknown Verified 01/04/17 18:30 Reaction Details Cefaclor Allergy Unknown Verified 01/04/17 18:30 Reaction Details Clavulanic Acid Allergy Unknown Verified 01/04/17 18:30 Reaction Details Lamotrigine Allergy Rash Verified 01/04/17 18:30 [place] Flavor Allergy Unknown Verified 01/04/17 18:30 Reaction Details Penicillins Allergy Unknown Verified 01/04/17 18:30 Reaction Details Quetiapine Allergy Tachycardia Verified 01/04/17 18:30 Sulfa Antibiotics Allergy Rash Verified 01/04/17 18:30 Sulfamethoxazole Allergy Rash Verified 01/04/17 18:30 w/Trimethoprim [From Bactrim] Risperidone [From Risperdal] AdvReac Unknown Rash Verified 01/04/17 18:30 PMH/Surg Hx/FS Hx/Imm Hx Endocrine/Hematology History: Denies: Hx Anticoagulant Therapy, Hx Diabetes, Hx Anemia, Hx Unexplained Bleeding Cardiovascular History: Reports: Other Cardiovascular Problems/Disorders - chest pain Denies: Hx Aneurysm, Hx Angina, Hx Angioplasty, Hx Auto Implanted Cardiovert Defib, Hx Cardiac Arrest, Hx Cardiomegaly, Hx Congenital Heart Disease, Hx Congestive Heart Failure, Hx Coronary Artery Disease, Hx Deep Vein Thrombosis, Hx Embolism, Hx Hypercholesterolemia, Hx Hypotension, Hx Hypertension, Hx Pacemaker/ICD, Hx Peripheral Vascular Disease, Hx Rheumatic Fever, Hx Syncope, Hx Valvular Heart Disease Respiratory History: Reports: Hx Asthma, Hx Chronic Bronchitis, Hx Pneumonia Denies: Hx Chronic Obstructive Pulmonary Disease (COPD), Hx Cystic Fibrosis, Hx Lung Cancer, Hx Pleural Effusion, Hx Pulmonary Edema, Hx Pulmonary Embolism, Hx Sleep Apnea, Other Respiratory Problems/Disorders GI History: Reports: Hx Gastroesophageal Reflux Disease Denies: Hx Cirrhosis, Hx Crohn's Disease, Hx Diverticulosis, Hx Gall Bladder Disease, Hx Gastrointestinal Bleed, Hx Hiatal Hernia, Hx Irritable Bowel, Hx Jaundice, Hx Obstructive Bowel, Hx Ileostomy, Hx Pyloric Stenosis, Hx Ulcer, Other GI Disorders History: Denies: Hx Renal Disease Musculoskeletal History: Reports: Hx Arthritis - Left shoulder, Hx Fibromyalgia - denies currently bothering her, Hx Tendonitis Denies: Hx Back Problems, Hx Bursitis, Hx Congenital Bone Abnormalities, Hx Gout, Hx Orthopedic Injury, Hx Osteoporosis, Hx Scoliosis, Other Musculoskeletal History Sensory History: Reports: Hx Contacts or Glasses Denies: Hx Cataracts, Hx Eye Injury, Hx Eye Prosthesis, Hx Glaucoma, Hx Legally Blind, Hx Macular Degeneration, Hx Vision Problem, Hx Hearing Aid, Other Sensory Impairments Opthamlomology History: Reports: Hx Contacts or Glasses Denies: Hx Cataracts, Hx Eye Injury, Hx Eye Prosthesis, Hx Glaucoma, Hx Legally Blind, Hx Macular Degeneration, Hx Vision Problem, Other Sensory Impairments Neurological History: Reports: Hx Headaches Denies: Hx Dementia, Hx Developmental Delay, Hx Migraine - patient denied, Hx Nerve Disease, Hx Seizures, Hx Spinal Cord Injury, Hx Transient Ischemic Attacks (TIA), Other Neuro Impairments/Disorders Psychiatric History: Reports: Hx Anxiety, Hx Attention Deficit Hyperactivity Disorder, Hx Depression, Hx Post Traumatic Stress Disorder, Hx Inpatient Treatment, Hx Community Mental Health Tx, Hx Schizophrenia, Hx Bipolar Disorder , Hx Suicide Attempt, Hx of Violent Episodes Against Others Denies: Hx Eating Disorder, Hx Panic Disorder, Hx Substance Abuse, Other Psychiatric Issues/Disorders - Surgical History Surgery Procedure, Year, and Place: Left Knee. Left Foot (2009) Hx Anesthesia Reactions: No - Immunization History Date of Tetanus Vaccine: unk Infectious Disease History: Yes Infectious Disease History: Reports: Hx of Known/Suspected MRSA - 3 years ago Denies: Hx Hepatitis, Hx Shingles, Hx Tuberculosis, Hx Known/Suspected VRE, Hx Known/Suspected VRSA, History Other Infectious Disease, Traveled Outside the [place] in Last 30 Days - Family History Known Family History: Positive: Hypertension, Diabetes, Other - Mother from cancer, HLD. Father has depression and anxiety - Social History Occupation: Disabled Lives: With Family Alcohol Use: Occasionally Alcohol Amount: 1-2 drinks Hx Substance Use: No Substance Use Type: Reports: None Substance Use Comment - Amount & Last Used: Denies. Hx Tobacco Use: Yes Smoking Status (MU): Heavy Every Day Tobacco Smoker Type: Cigarettes Amount Used/How Often: 3/4 TO 1 PPD Length of Time of Smoking/Using Tobacco: SINCE AGE 11 Y.O. Have You Smoked in the Last Year: Yes Review of Systems Negative: Fever Positive: Anxious All Other Systems Reviewed And Are Negative: Yes Physical Exam Triage Information Reviewed: Yes Vital Signs On Initial Exam: Initial Vitals Temp Pulse Resp BP Pulse Ox 98.7 F 76 16 134/80 98 01/13/17 15:59 01/13/17 15:59 01/13/17 15:59 01/13/17 15:59 01/13/17 15:59 Vital Signs Reviewed: Yes Appearance: Positive: Well-Appearing, No Pain Distress Skin: Positive: Warm, Skin Color Reflects Adequate Perfusion, Dry Head/Face: Positive: Normal Head/Face Inspection Eyes: Positive: Normal ENT: Positive: Normal ENT inspection Neck: Positive: Supple, Nontender Respiratory/Lung Sounds: Positive: Clear to Auscultation, Breath Sounds Present Cardiovascular: Positive: RRR Abdomen Description: Positive: Nontender, Soft Bowel Sounds: Positive: Present Musculoskeletal: Positive: Normal Neurological: Positive: Normal Psychiatric: Positive: Normal, Affect/Mood Appropriate - [place] Coma Scale Coma Scale Total: 15 Diagnostics - Vital Signs Vital Signs Temp Pulse Resp BP Pulse Ox 01/13/17 15:59 98.7 F 76 16 134/80 98 - Laboratory Lab Results: Lab Results 01/13/17 01/13/17 01/13/17 Range/Units 16:24 16:24 16:24 WBC 14.3 H (3.5-10.8) 10^3/ul RBC 4.97 (4.0-5.4) 10^6/ul Hgb 13.6 (12.0-16.0) g/dl Hct 42 (35-47) % MCV 84 (80-97) fL MCH 27 (27-31) pg MCHC 33 (31-36) g/dl RDW 16 H (10.5-15) % Plt Count 366 (150-450) 10^3/ul MPV 8 (7.4-10.4) um3 Neut % (Auto) 70.0 (38-83) % Lymph % (Auto) 20.4 L (25-47) % [place] % (Auto) 6.3 (1-9) % Eos % (Auto) 2.6 (0-6) % Baso % (Auto) 0.7 (0-2) % Absolute Neuts (auto) 10.0 H (1.5-7.7) 10^3/ul Absolute Lymphs (auto) 2.9 (1.0-4.8) 10^3/ul Absolute Monos (auto) 0.9 H (0-0.8) 10^3/ul Absolute Eos (auto) 0.4 (0-0.6) 10^3/ul Absolute Basos (auto) 0.1 (0-0.2) 10^3/ul Absolute Nucleated RBC 0.01 10^3/ul Nucleated RBC % 0.1 Sodium 139 (133-145) mmol/L Potassium 3.4 L (3.5-5.0) mmol/L Chloride 105 (101-111) mmol/L Carbon Dioxide 26 (22-32) mmol/L Anion Gap 8 (2-11) mmol/L BUN 5 L (6-24) mg/dL Creatinine 0.69 (0.51-0.95) mg/dL Est GFR ( Amer) 128.5 (>60) Est GFR (Non-Af Amer) 99.9 (>60) BUN/Creatinine Ratio 7.2 L (8-20) Glucose 81 (70-100) mg/dL Calcium 9.7 (8.6-10.3) mg/dL Total Bilirubin 0.30 (0.2-1.0) mg/dL AST 18 (13-39) U/L ALT 17 (7-52) U/L Alkaline Phosphatase 105 H (34-104) U/L Total Protein 7.9 (6.4-8.9) g/dL Albumin 4.4 (3.2-5.2) g/dL Globulin 3.5 (2-4) g/dL Albumin/Globulin Ratio 1.3 (1-3) TSH 1.25 (0.34-5.60) mcIU/mL Beta HCG, Quant < 0.60 mIU/mL Urine Color Colorless Urine Appearance Clear Urine pH 7.0 (5-9) Ur Specific [place] 1.001 L (1.010-1.030) Urine Protein Negative (Negative) Urine Ketones Negative (Negative) Urine Blood Negative (Negative) Urine Nitrate Negative (Negative) Urine Bilirubin Negative (Negative) Urine Urobilinogen Negative (Negative) Ur Leukocyte Esterase Negative (Negative) Urine Glucose Negative (Negative) Salicylates < 2.50 (<30) mg/dL Urine Opiates Screen (None Detect) Acetaminophen < 15 mcg/mL Ur Barbiturates Screen (None Detect) Ur Phencyclidine Scrn (None Detect) Ur Amphetamines Screen (None Detect) U Benzodiazepines Scrn (None Detect) Urine Cocaine Screen (None Detect) U Cannabinoids Screen (None Detect) Serum Alcohol < 10 (<10) mg/dL 01/13/17 Range/Units 16:24 WBC (3.5-10.8) 10^3/ul RBC (4.0-5.4) 10^6/ul Hgb (12.0-16.0) g/dl Hct (35-47) % MCV (80-97) fL MCH (27-31) pg MCHC (31-36) g/dl RDW (10.5-15) % Plt Count (150-450) 10^3/ul MPV (7.4-10.4) um3 Neut % (Auto) (38-83) % Lymph % (Auto) (25-47) % [place] % (Auto) (1-9) % Eos % (Auto) (0-6) % Baso % (Auto) (0-2) % Absolute Neuts (auto) (1.5-7.7) 10^3/ul Absolute Lymphs (auto) (1.0-4.8) 10^3/ul Absolute Monos (auto) (0-0.8) 10^3/ul Absolute Eos (auto) (0-0.6) 10^3/ul Absolute Basos (auto) (0-0.2) 10^3/ul Absolute Nucleated RBC 10^3/ul Nucleated RBC % Sodium (133-145) mmol/L Potassium (3.5-5.0) mmol/L Chloride (101-111) mmol/L Carbon Dioxide (22-32) mmol/L Anion Gap (2-11) mmol/L BUN (6-24) mg/dL Creatinine (0.51-0.95) mg/dL Est GFR ( Amer) (>60) Est GFR (Non-Af Amer) (>60) BUN/Creatinine Ratio (8-20) Glucose (70-100) mg/dL Calcium (8.6-10.3) mg/dL Total Bilirubin (0.2-1.0) mg/dL AST (13-39) U/L ALT (7-52) U/L Alkaline Phosphatase (34-104) U/L Total Protein (6.4-8.9) g/dL Albumin (3.2-5.2) g/dL Globulin (2-4) g/dL Albumin/Globulin Ratio (1-3) TSH (0.34-5.60) mcIU/mL Beta HCG, Quant mIU/mL Urine Color Urine Appearance Urine pH (5-9) Ur Specific [place] (1.010-1.030) Urine Protein (Negative) Urine Ketones (Negative) Urine Blood (Negative) Urine Nitrate (Negative) Urine Bilirubin (Negative) Urine Urobilinogen (Negative) Ur Leukocyte Esterase (Negative) Urine Glucose (Negative) Salicylates (<30) mg/dL Urine Opiates Screen None detected (None Detect) Acetaminophen mcg/mL Ur Barbiturates Screen None detected (None Detect) Ur Phencyclidine Scrn None detected (None Detect) Ur Amphetamines Screen None detected (None Detect) U Benzodiazepines Scrn None detected (None Detect) Urine Cocaine Screen None detected (None Detect) U Cannabinoids Screen None detected (None Detect) Serum Alcohol (<10) mg/dL Result Diagrams: 01/13/17 16:24 01/13/17 16:24 Lab Statement: Any lab studies that have been ordered have been reviewed, and results considered in the medical decision making process. Course/Dx - Course Course Of Treatment: Ms. Jesus presented with auditory command hallucinations telling her to hurt herself. She was medically cleared, evaluated by the [facility] and admitted to the unit on a voluntary basis. - Differential Dx/Clinical Impression Provider Diagnosis: Psychosis - Physician Notifications Discussed Care Of Patient With: Surjit Page - Will admit pt to [facility] [place] Time Discussed With Above Provider: 20:07 Discharge - Discharge Plan Condition: Stable Disposition: ADMITTED TO [facility] The documentation as recorded by the Nika pringle Alok accurately reflects the service I personally performed and the decisions made by me, Isaak Simms MD.
[2017-01-13] MEDS ORDERED: Albuterol/Ipratropium NEB.SOL* Albuterol 2.5 MG/Ipratropium 0.5 MG 3 ML INH PRN (23:44)
[2017-01-14] MEDS: Albuterol HFA INHALER* 8 gm MDI INH PRN ×2 (00:03→05:03)
[2017-01-14] MEDS: Gabapentin CAP(*) 300 MG PO SCH ×2 (09:35→20:12)
[2017-01-14] MEDS: CloZAPine TAB* 25 MG TAB PO SCH (09:38)
[2017-01-14] MEDS: Benztropine TAB* 1 MG PO SCH ×2 (09:39→20:13)
[2017-01-14] MEDS: Haloperidol TAB* 5 MG PO SCH ×2 (09:39→20:13)
[2017-01-14] MEDS: Vitamin THERAPEUTIC TAB PO SCH (10:48)
[2017-01-14] MEDS: chlorproMAZINE TAB* 50 MG PO PRN ×2 (11:13→16:56)
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
[2017-01-14] MEDS: chlorproMAZINE TAB* 100 MG PO SCH (20:13)
[2017-01-14] MEDS: CloZAPine TAB* 100 MG TAB PO SCH (20:14)
[2017-01-15] MEDS: Gabapentin CAP(*) 300 MG PO SCH ×2 (08:00→20:01)
[2017-01-15] MEDS: Haloperidol TAB* 5 MG PO SCH ×2 (08:00→20:02)
[2017-01-15] MEDS: CloZAPine TAB* 100 MG TAB PO SCH ×2 (08:01→20:01)
[2017-01-15] MEDS: Vitamin THERAPEUTIC TAB PO SCH (08:01)
[2017-01-15] MEDS: Benztropine TAB* 1 MG PO SCH ×2 (08:01→20:02)
[2017-01-15] MEDS: chlorproMAZINE TAB* 50 MG PO PRN ×3 (09:28→19:09)
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
[2017-01-15] MEDS: chlorproMAZINE TAB* 100 MG PO SCH (20:03)
[2017-01-16] MEDS: Gabapentin CAP(*) 300 MG PO SCH ×2 (08:02→20:27)
[2017-01-16] MEDS: Vitamin THERAPEUTIC TAB PO SCH (08:03)
[2017-01-16] MEDS: CloZAPine TAB* 100 MG TAB PO SCH ×2 (08:03→20:27)
[2017-01-16] MEDS: Benztropine TAB* 1 MG PO SCH ×2 (08:03→20:27)
[2017-01-16] MEDS: Haloperidol TAB* 5 MG PO SCH ×2 (08:03→20:26)
[2017-01-16] MEDS: chlorproMAZINE TAB* 50 MG PO PRN ×2 (12:54→15:05)
[2017-01-16] MEDS ORDERED: Haloperidol TAB* 5 MG PO ONE (15:58)
--- NOTE | 2017-01-16 16:08 | PN ---
Subjective - Subjective Service Type: [id number] Hosp care 15 min low complexity Subjective: Bree is having a rough day per her and the staff reports. She continues to complaints of command auditory hallucination, voices telling to kill herself and someone is out to get her. She was fount restless and pacing. Vitals shows a BP of 137/80, P-114, T-99 and R-17. Denies plan to act on the commands of the voices. Complient on meds. Ordered an EKG. Objective - Appearance Appearance: Obese Dysmorphic Features: No Hygiene: Normal Grooming: Fairly Well Kept - Behavior Psychomotor Activities: Abnormal-Increased Exhibits Abnormal Movement: No - Attitude and Relatedness Attitude and Relatedness: Appropriate Eye Contact: Poor - Speech Quality: Unpressured Latencies: Normal Quantity: Appropriate - Mood Patient's Decription of Mood: "Terrible" - Affect Observed Affect: Constricted - Thought Process Patient's Thought Process: Coherent, Goal Directed Thought Content: No Passive Wish, No Suicidal Planning, No Homicidal Ideation, No Paranoid Ideation - Sensorium Experiencing Hallucinations: Yes Type of Hallucinations: Visual: No, Auditory: Yes, Command: Yes - Level of Consciousness Level of Consciousness: Alert Orientation: Yes Intact, Yes Orientated to Time, Yes Orientated to Place, Yes Orientated to Person - Impulse Control Impulse Control: Intact - Insight and Judgement Insight and Judgement: Fair - Group Participation Particating in Group Activities: No - Medication Management Medication Management Adherence: Yes Assessment - Assessment Merits Inpatient Hospitalization: For Immediate Safety, For Stabilization Inpatient DSM-IV Dx: Schizoaffective, Depressed Type Plan - Plan Treatment Plan: Name: BREE GOTTI Birthdate: 1985 [id number] Continued Medication Management: Continue Outpt Medication Medications: Current Medications Acetaminophen (Tylenol Tab*) 650 mg PO Q4H PRN PRN Reason: PAIN or TEMP > 101 F Al Hydrox/Mg Hydrox/Simethicone (Maalox Plus*) 30 ml PO Q4H PRN PRN Reason: INDIGESTION Albuterol (Ventolin Hfa Inhaler*) 2 puff INH Q4H PRN PRN Reason: SHORTNESS OF BREATH Last Admin: 01/14/17 05:03 Dose: 2 puff Albuterol/Ipratropium (Duoneb (Albuterol 2.5 Mg/Ipratropium 0.5 Mg)) 1 neb INH Q4H PRN PRN Reason: SHORTNESS OF BREATH Benztropine Mesylate (Cogentin Tab*) 1 mg PO BID [facility] Last Admin: 01/16/17 08:03 Dose: 1 mg Chlorpromazine HCl (Thorazine Tab*) 200 mg PO BEDTIME SUDHIR Last Admin: 01/15/17 20:03 Dose: 200 mg Chlorpromazine HCl (Thorazine Tab*) 50 mg PO TID PRN PRN Reason: ANXIETY Last Admin: 01/16/17 15:05 Dose: 50 mg Clozapine (Clozapine Tab*) 100 mg PO BID S[facility] Last Admin: 01/16/17 08:03 Dose: 100 mg Gabapentin (Neurontin Cap(*)) 600 mg PO BID [facility] Last Admin: 01/16/17 08:02 Dose: 600 mg Haloperidol (Haldol Tab*) 5 mg PO BID [facility] Last Admin: 01/16/17 08:03 Dose: 5 mg Haloperidol (Haldol Tab*) 5 mg PO ONCE ONE Stop: 01/16/17 15:59 Multivitamins (Theragran Tab*) 1 tab PO DAILY [facility] Last Admin: 01/16/17 08:03 Dose: Not Given - Discharge Plan Discharge Plan: Outpatient Follow Up Outpatient Program: [facility]
[2017-01-16] MEDS: chlorproMAZINE TAB* 100 MG PO SCH (20:26)
[2017-01-17] MEDS: CloZAPine TAB* 100 MG TAB PO SCH ×2 (08:12→20:03)
[2017-01-17] MEDS: Benztropine TAB* 1 MG PO SCH ×2 (08:12→20:03)
[2017-01-17] MEDS: Gabapentin CAP(*) 300 MG PO SCH ×2 (08:12→20:02)
[2017-01-17] MEDS: Haloperidol TAB* 5 MG PO SCH ×2 (08:13→20:03)
[2017-01-17] MEDS: Vitamin THERAPEUTIC TAB PO SCH (08:16)
[2017-01-17] MEDS: Acetaminophen TAB* 325 MG PO PRN (09:46)
[2017-01-17] MEDS: chlorproMAZINE TAB* 50 MG PO PRN ×3 (12:32→18:24)
[2017-01-17] MEDS: chlorproMAZINE TAB* 100 MG PO SCH (20:02)
[2017-01-18] MEDS: Benztropine TAB* 1 MG PO SCH (08:12)
[2017-01-18] MEDS: Haloperidol TAB* 5 MG PO SCH ×2 (08:12→20:42)
[2017-01-18] MEDS: Gabapentin CAP(*) 300 MG PO SCH ×2 (08:13→20:42)
[2017-01-18] MEDS: CloZAPine TAB* 100 MG TAB PO SCH ×2 (08:13→20:43)
[2017-01-18 08:14] LABS: Hematocrit 43 % (35-47); Mean Corpuscular HGB Conc 32 g/dl (31-36); Mean Corpuscular Hemoglobin 27 pg (27-31); Mean Corpuscular Volume 83 fL (80-97); Mean Platelet Volume 8 um3 (7.4-10.4); Red Blood Count 5.22 10^6/ul (4.0-5.4); Red Cell Distribution Width 16 % (10.5-15); White Blood Count 9.4 10^3/ul (3.5-10.8)
[2017-01-18] MEDS: Vitamin THERAPEUTIC TAB PO SCH (08:16)
[2017-01-18 08:29] LABS: HDL Cholesterol 47.8 mg/dL
[2017-01-18] MEDS: chlorproMAZINE TAB* 50 MG PO PRN (09:37)
[2017-01-18] MEDS ORDERED: Atropine 1% (ORAL/SL)* 15 ML BTL SL PRN (11:45)
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
[2017-01-18] MEDS ORDERED: Mouth Piece, Nicotine* 1 EACH CARTRIDGE INH ONE (12:00)
[2017-01-18] MEDS: Nicotine Inhaler* 10 MG AMP INH PRN ×2 (13:58→16:39)
[2017-01-18] MEDS: chlorproMAZINE TAB* 100 MG PO PRN (15:32)
[2017-01-18] MEDS: Acetaminophen TAB* 325 MG PO PRN (19:34)
[2017-01-18] MEDS: chlorproMAZINE TAB* 100 MG PO SCH (20:41)
[2017-01-18] MEDS: CloZAPine TAB* 25 MG TAB PO SCH (20:42)
[2017-01-18] MEDS: Benztropine TAB* 2 MG PO SCH (20:42)
[2017-01-19] MEDS: Gabapentin CAP(*) 300 MG PO SCH ×2 (08:05→20:15)
[2017-01-19] MEDS: CloZAPine TAB* 100 MG TAB PO SCH ×2 (08:06→20:16)
[2017-01-19] MEDS: Haloperidol TAB* 5 MG PO SCH ×2 (08:06→20:15)
[2017-01-19] MEDS: CloZAPine TAB* 25 MG TAB PO SCH ×2 (08:07→20:16)
[2017-01-19] MEDS: Benztropine TAB* 2 MG PO SCH ×2 (08:07→20:16)
[2017-01-19] MEDS: Vitamin THERAPEUTIC TAB PO SCH (08:11)
[2017-01-19] MEDS: Nicotine Inhaler* 10 MG AMP INH PRN ×3 (10:18→16:45)
[2017-01-19] MEDS: chlorproMAZINE TAB* 100 MG PO PRN ×2 (10:18→17:19)
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
[2017-01-19] MEDS: chlorproMAZINE TAB* 100 MG PO SCH (20:15)
[2017-01-19] MEDS: Acetaminophen TAB* 325 MG PO PRN (21:04)
[2017-01-20] MEDS: CloZAPine TAB* 100 MG TAB PO SCH ×2 (09:23→20:37)
[2017-01-20] MEDS: Benztropine TAB* 2 MG PO SCH ×2 (09:24→20:37)
[2017-01-20] MEDS: Haloperidol TAB* 5 MG PO SCH ×2 (09:24→20:38)
[2017-01-20] MEDS: CloZAPine TAB* 25 MG TAB PO SCH ×2 (09:24→20:37)
[2017-01-20] MEDS: Gabapentin CAP(*) 300 MG PO SCH ×2 (09:24→20:36)
[2017-01-20] MEDS: Nicotine Inhaler* 10 MG AMP INH PRN ×2 (09:25→15:38)
[2017-01-20] MEDS: Vitamin THERAPEUTIC TAB PO SCH (09:31)
[2017-01-20] MEDS: chlorproMAZINE TAB* 100 MG PO PRN ×2 (10:19→18:13)
--- NOTE | 2017-01-20 13:36 | PN ---
MHU: Group Therapy Note - Service Type Service Type: [id number] Group Psychotherapy - Cognitive Behavioral Group Therapy ( CBT):Patient was attentive and participatory in CBT programming this morning, and remained in good behavioral control. Patient expressed positive insights regarding relevant treatment interventions and goals.
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
[2017-01-20] MEDS: Acetaminophen TAB* 325 MG PO PRN (15:39)
[2017-01-20] MEDS: Albuterol HFA INHALER* 8 gm MDI INH PRN (16:28)
[2017-01-20] MEDS: chlorproMAZINE TAB* 100 MG PO SCH (20:36)
[2017-01-21] MEDS: Gabapentin CAP(*) 300 MG PO SCH (08:04)
[2017-01-21] MEDS: CloZAPine TAB* 100 MG TAB PO SCH (08:04)
[2017-01-21] MEDS: CloZAPine TAB* 25 MG TAB PO SCH (08:04)
[2017-01-21] MEDS: Haloperidol TAB* 5 MG PO SCH (08:05)
[2017-01-21] MEDS: Vitamin THERAPEUTIC TAB PO SCH (08:05)
[2017-01-21] MEDS: Benztropine TAB* 2 MG PO SCH (08:05)
[2017-01-21 08:17] VITALS: BP 147/91
[2017-01-21] MEDS: Nicotine Inhaler* 10 MG AMP INH PRN (10:59)
--- NOTE | 2017-01-21 11:30 | PN ---
MHU: Group Therapy Note - Service Type Service Type: [id number] Group Psychotherapy - Cognitive Behavioral Group Therapy ( CBT):Patient attended CBT programming this morning and presented with flat affect that did not vary with discussion. Although responsive to direct prompts to respond to questions, patient did not engage in spontaneous conversation.
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
== END 2017-01-21 13:00 | DRG 750 ==
LOC: ED 15:52 → BSU 20:09
PROVIDERS: ADMIT Psychiatry & Neurology Psychiatry; ATTEND Psychiatry & Neurology Psychiatry
PROC: GZHZZZZ Group Psychotherapy (ICD-10-PCS; principal; 2017-01-20)
DX: F25.1 Schizoaffective disorder, depressive type (principal); F31.9 Bipolar disorder, unspecified; F43.10 Post-traumatic stress disorder, unspecified; F60.3 Borderline personality disorder; M79.7 Fibromyalgia; J45.909 Unspecified asthma, uncomplicated; F17.210 Nicotine dependence, cigarettes, uncomplicated; F41.9 Anxiety disorder, unspecified; K21.9 Gastro-esophageal reflux disease without esophagitis; M19.012 Primary osteoarthritis, left shoulder; F90.9 Attention-deficit hyperactivity disorder, unspecified type; R40.2412 Glasgow coma scale score 13-15, at arrival to emergency department; K11.7 Disturbances of salivary secretion; Z62.810 Personal history of physical and sexual abuse in childhood; Z91.5 Personal history of self-harm; Z88.8 Allergy status to other drugs, medicaments and biological substances; Z88.1 Allergy status to other antibiotic agents; Z88.0 Allergy status to penicillin; Z81.1 Family history of alcohol abuse and dependence; Z81.8 Family history of other mental and behavioral disorders; Z81.0 Family history of intellectual disabilities; Z56.0 Unemployment, unspecified; Z87.01 Personal history of pneumonia (recurrent); Z82.49 Family history of ischemic heart disease and other diseases of the circulatory system; Z83.3 Family history of diabetes mellitus; Z80.9 Family history of malignant neoplasm, unspecified
CPT/HCPCS: 36415; 80053; 80061; 80307; 80320; 80329; 81003; 83036; 84443; 84702; 85025; 90853; 93005; 99222; 99231; 99238; A9270-GY; G0480

== ENCOUNTER 2017-04-28 02:01 | Inpatient (IN) | payer MEDICAID ==
[2017-04-28 03:47] LABS: Hematocrit 40 % (35-47); Hemoglobin 13.2 g/dl (12.0-16.0); Mean Corpuscular HGB Conc 33 g/dl (31-36); Mean Corpuscular Hemoglobin 26 pg (27-31); Mean Corpuscular Volume 79 fL (80-97); Mean Platelet Volume 8 um3 (7.4-10.4); Red Blood Count 5.06 10^6/ul (4.0-5.4); Red Cell Distribution Width 15 % (10.5-15); White Blood Count 13.6 10^3/ul (3.5-10.8)
[2017-04-28 03:58] LABS: ALT 11 U/L (7-52); AST 17 U/L (13-39); Albumin 4.2 g/dL (3.2-5.2); Alkaline Phosphatase 133 U/L (34-104); Amylase 42 U/L (29-103); Anion Gap 10 mmol/L (2-11); BUN/Creatinine Ratio 17.2 (8-20); Blood Urea Nitrogen 11 mg/dL (6-24); CO2 Carbon Dioxide 23 mmol/L (22-32); Calcium 9.6 mg/dL (8.6-10.3); Chloride 102 mmol/L (101-111); EGFR African American 139.2 (>60); EGFR Non-African American 108.2 (>60); Globulin 3.3 g/dL (2-4); Glucose 115 mg/dL (70-100); Lipase 31 U/L (11.0-82.0); Potassium 3.5 mmol/L (3.5-5.0); Sodium 135 mmol/L (133-145); Total Protein 7.5 g/dL (6.4-8.9)
[2017-04-28 04:02] LABS: Acetaminophen < 15 mcg/mL; Alcohol < 10 mg/dL (<10); Salicylate < 2.50 mg/dL (<30)
[2017-04-28] MEDS ORDERED: Ondansetron ODT TAB* 4 MG PO ONE (05:02)
[2017-04-28] MEDS ORDERED: Pantoprazole TAB (NF) 40 MG TAB PO ONE (05:02)
[2017-04-28 05:37] LABS: TSH (Thyroid Stimulating Horm) 1.77 mcIU/mL (0.34-5.60)
[2017-04-28] MEDS ORDERED: Omeprazole CAP* 20 MG PO ONE (06:00)
--- NOTE | 2017-04-28 07:18 | ED ---
Jacob Fine Benjamin, scribed for Emperatriz Ardon MD on 04/28/17 at 0510 . Psychiatric Complaint - HPI Summary HPI Summary: 32yo female c/o insomnia and anxiety and racing thoughts for a few days .Pt took 200mg Trazodone but still wasnt able to get to sleep. (50mg of the trazodone was her own, 150mg of the trazodone was her 's medication.) Pt states that she is having racing thoughts and fears she is becoming manic. States she has not slept in 24 hours. Pt also felt nauseous for 2 days and have vomited a few times in the past 2 days. No abdominal pain reported but reports "gassy" abdomen. Hx of schizoaffective and bipolar disorder. Pt has been recently admitted for psychiatric complaint where she was hospitalized for 3 weeks in [facility] and was discharged on 04/26/17. Pt does not take lithium. PMHX also includes heartburn. Denies SI or HI. Pt is here with her . Pt states they have changed her meds while she was at [facility]. Med list: Ivega Vistaril Trazodone Effexor Gabapentin Albuterol - History Of Current Complaint Chief Complaint: EDMentalHealth Time Seen by Provider: 04/28/17 03:29 Hx Obtained From: Patient, Family/Recep - Hx Last Menstrual Period: Irregular- September 2016 ?: No Onset/Duration: Gradual Onset, Lasting Days, Still Present Timing: Constant Severity Initially: Moderate Severity Currently: Moderate Character: Manic, Anxious Aggravating Factor(s): Other - lack of sleep Alleviating Factor(s): Nothing Associated Signs And Symptoms: Positive: Sleep Disturbance Related History: Positive For: Prior Psychiatric Issues Has Suicidal: Denies: Thoughts, With A Plan Has Homicidal: Denies: Thoughts, With A Plan - Allergies/Home Medications Allergies/Adverse Reactions: Allergies Allergy/AdvReac Type Severity Reaction Status Date / Time Metoprolol Allergy Unknown Rash Verified 01/14/17 09:35 Amoxicillin Allergy Unknown Verified 01/14/17 09:35 Reaction Details Cefaclor Allergy Unknown Verified 01/14/17 09:35 Reaction Details Clavulanic Acid Allergy Unknown Verified 01/14/17 09:35 Reaction Details Lamotrigine Allergy Rash Verified 01/14/17 09:35 Rolly Flavor Allergy Unknown Verified 01/14/17 09:35 Reaction Details Penicillins Allergy Unknown Verified 01/14/17 09:35 Reaction Details Quetiapine Allergy Tachycardia Verified 01/14/17 09:35 Sulfa Antibiotics Allergy Rash Verified 01/14/17 09:35 Sulfamethoxazole Allergy Rash Verified 01/14/17 09:35 w/Trimethoprim [From Bactrim] Risperidone [From Risperdal] AdvReac Unknown Rash Verified 01/14/17 09:35 Home Medications: Home Medications Paliperidone TAB* [Invega TAB*] 6 mg PO DAILY 04/28/17 [History Confirmed ] Venlafaxine CAP (NF) [Effexor CAP (NF)] 75 mg PO BID 04/28/17 [History Confirmed 04/28/17] hydrOXYzine PAMOATE CAP* [Vistaril CAP*] 50 mg PO Q2HR PRN MDD 100mg 04/28/17 [ History Confirmed 04/28/17] traZODone TAB* [Desyrel TAB*] 50 mg PO BEDTIME PRN 04/28/17 [History Confirmed 04/28/17] PMH/Surg Hx/FS Hx/Imm Hx Previously Healthy: No Endocrine/Hematology History: Denies: Hx Anticoagulant Therapy, Hx Diabetes, Hx Anemia, Hx Unexplained Bleeding Cardiovascular History: Denies: Hx Aneurysm, Hx Angina, Hx Angioplasty, Hx Auto Implanted Cardiovert Defib, Hx Cardiac Arrest, Hx Cardiomegaly, Hx Congenital Heart Disease, Hx Congestive Heart Failure, Hx Coronary Artery Disease, Hx Deep Vein Thrombosis, Hx Embolism, Hx Hypercholesterolemia, Hx Hypotension, Hx Hypertension, Hx Pacemaker/ICD, Hx Peripheral Vascular Disease, Hx Rheumatic Fever, Hx Syncope, Hx Valvular Heart Disease, Other Cardiovascular Problems/Disorders Respiratory History: Reports: Hx Asthma, Hx Chronic Bronchitis, Hx Pneumonia Denies: Hx Chronic Obstructive Pulmonary Disease (COPD), Hx Cystic Fibrosis, Hx Lung Cancer, Hx Pleural Effusion, Hx Pulmonary Edema, Hx Pulmonary Embolism, Hx Sleep Apnea, Other Respiratory Problems/Disorders GI History: Reports: Hx Gastroesophageal Reflux Disease Denies: Hx Cirrhosis, Hx Crohn's Disease, Hx Diverticulosis, Hx Gall Bladder Disease, Hx Gastrointestinal Bleed, Hx Hiatal Hernia, Hx Irritable Bowel, Hx Jaundice, Hx Obstructive Bowel, Hx Ileostomy, Hx Pyloric Stenosis, Hx Ulcer, Other GI Disorders History: Denies: Hx Kidney Stones, Hx Renal Disease Musculoskeletal History: Reports: Hx Fibromyalgia - denies currently bothering her, Hx Tendonitis Denies: Hx Back Problems, Hx Bursitis, Hx Congenital Bone Abnormalities, Hx Gout, Hx Orthopedic Injury, Hx Osteoporosis, Hx Scoliosis, Other Musculoskeletal History Comment Only: Hx Arthritis - Left shoulder Sensory History: Reports: Hx Contacts or Glasses - Pt has in her possession Denies: Hx Cataracts, Hx Eye Injury, Hx Eye Prosthesis, Hx Glaucoma, Hx Legally Blind, Hx Macular Degeneration, Hx Vision Problem, Hx Hearing Aid, Other Sensory Impairments Opthamlomology History: Reports: Hx Contacts or Glasses - Pt has in her possession Denies: Hx Cataracts, Hx Eye Injury, Hx Eye Prosthesis, Hx Glaucoma, Hx Legally Blind, Hx Macular Degeneration, Hx Vision Problem, Other Sensory Impairments Neurological History: Denies: Hx Dementia, Hx Developmental Delay, Hx Headaches, Hx Migraine, Hx Nerve Disease, Hx Seizures, Hx Spinal Cord Injury, Hx Transient Ischemic Attacks (TIA), Other Neuro Impairments/Disorders Psychiatric History: Reports: Hx Anxiety, Hx Attention Deficit Hyperactivity Disorder, Hx Depression, Hx Post Traumatic Stress Disorder, Hx Inpatient Treatment, Hx Community Mental Health Tx, Hx Schizophrenia, Hx Bipolar Disorder , Hx Suicide Attempt, Hx of Violent Episodes Against Others Denies: Hx Eating Disorder, Hx Panic Disorder, Hx Substance Abuse, Other Psychiatric Issues/Disorders - Surgical History Surgery Procedure, Year, and Place: Left Knee. Left Foot (2009) Hx Anesthesia Reactions: No - Immunization History Date of Tetanus Vaccine: unk Infectious Disease History: Yes Infectious Disease History: Reports: Hx of Known/Suspected MRSA - 3 years ago Denies: Hx Hepatitis, Hx Shingles, Hx Tuberculosis, Hx Known/Suspected VRE, Hx Known/Suspected VRSA, History Other Infectious Disease, Traveled Outside the [place] in Last 30 Days - Family History Known Family History: Positive: Hypertension, Diabetes, Other - Mother from cancer, HLD. Father has depression and anxiety - Social History Lives: With Family Alcohol Use: None Alcohol Amount: 1-2 drinks Hx Substance Use: No Substance Use Type: Reports: None Substance Use Comment - Amount & Last Used: Denies. Hx Tobacco Use: Yes Smoking Status (MU): Current Some Day Smoker Type: Cigarettes Amount Used/How Often: 3/4 TO 1 PPD Length of Time of Smoking/Using Tobacco: SINCE AGE 11 Y.O. Have You Smoked in the Last Year: Yes Review of Systems Constitutional: Negative Eyes: Negative ENT: Negative Cardiovascular: Negative Respiratory: Negative Positive: Vomiting, Nausea, Other - gassy abdomen. Negative: Abdominal Pain Genitourinary: Negative Positive: no symptoms reported Musculoskeletal: Negative Skin: Negative Neurological: Negative Positive: Anxious, Other - insomnia, racing thoughts All Other Systems Reviewed And Are Negative: Yes Physical Exam Triage Information Reviewed: Yes Vital Signs On Initial Exam: Initial Vitals Temp Pulse Resp BP Pulse Ox 97.8 F 108 18 127/85 100 04/28/17 02:13 04/28/17 02:13 04/28/17 02:13 04/28/17 02:13 04/28/17 02:13 Vital Signs Reviewed: Yes Appearance: Positive: Well-Appearing, Well-Nourished, Pain Distress - mild Skin: Positive: Warm, Skin Color Reflects Adequate Perfusion Head/Face: Positive: Normal Head/Face Inspection Eyes: Positive: Conjunctiva Clear ENT: Positive: Normal ENT inspection Neck: Positive: Supple Respiratory/Lung Sounds: Positive: Clear to Auscultation, Breath Sounds Present Cardiovascular: Positive: RRR, Pulses are Symmetrical in both Upper and Lower Extremities Abdomen Description: Positive: No Organomegaly, Soft. Negative: Nontender - mild diffuse tenderness Bowel Sounds: Positive: Present Musculoskeletal: Positive: Strength/ROM Intact. Negative: Edema Left, Edema Right Neurological: Positive: Sensory/Motor Intact, Alert, Oriented to Person Place, Time, Facial Symmetry, Speech Normal Psychiatric: Positive: Other - cooperative, states she wants to sleep but can't , tearful at times - [place] Coma Scale Coma Scale Total: 15 Diagnostics - Vital Signs Vital Signs Temp Pulse Resp BP Pulse Ox 04/28/17 02:13 97.8 F 108 18 127/85 100 - Laboratory Lab Results: Lab Results 04/28/17 04/28/17 04/28/17 Range/Units 03:20 03:20 03:20 WBC 13.6 H (3.5-10.8) 10^3/ul RBC 5.06 (4.0-5.4) 10^6/ul Hgb 13.2 (12.0-16.0) g/dl Hct 40 (35-47) % MCV 79 L (80-97) fL MCH 26 L (27-31) pg MCHC 33 (31-36) g/dl RDW 15 (10.5-15) % Plt Count 339 (150-450) 10^3/ul MPV 8 (7.4-10.4) um3 Neut % (Auto) 77.3 (38-83) % Lymph % (Auto) 14.5 L (25-47) % [place] % (Auto) 6.4 (1-9) % Eos % (Auto) 1.4 (0-6) % Baso % (Auto) 0.4 (0-2) % Absolute Neuts (auto) 10.5 H (1.5-7.7) 10^3/ul Absolute Lymphs (auto) 2.0 (1.0-4.8) 10^3/ul Absolute Monos (auto) 0.9 H (0-0.8) 10^3/ul Absolute Eos (auto) 0.2 (0-0.6) 10^3/ul Absolute Basos (auto) 0.1 (0-0.2) 10^3/ul Absolute Nucleated RBC 0 10^3/ul Nucleated RBC % 0 Sodium 135 (133-145) mmol/L Potassium 3.5 (3.5-5.0) mmol/L Chloride 102 (101-111) mmol/L Carbon Dioxide 23 (22-32) mmol/L Anion Gap 10 (2-11) mmol/L BUN 11 (6-24) mg/dL Creatinine 0.64 (0.51-0.95) mg/dL Est GFR ( Amer) 139.2 (>60) Est GFR (Non-Af Amer) 108.2 (>60) BUN/Creatinine Ratio 17.2 (8-20) Glucose 115 H (70-100) mg/dL Lactic Acid 0.7 (0.5-2.0) mmol/L Calcium 9.6 (8.6-10.3) mg/dL Total Bilirubin 0.40 (0.2-1.0) mg/dL AST 17 (13-39) U/L ALT 11 (7-52) U/L Alkaline Phosphatase 133 H (34-104) U/L Total Protein 7.5 (6.4-8.9) g/dL Albumin 4.2 (3.2-5.2) g/dL Globulin 3.3 (2-4) g/dL Albumin/Globulin Ratio 1.3 (1-3) Amylase 42 (29-103) U/L Lipase 31 (11.0-82.0) U/L TSH Pending Beta HCG, Quant < 0.60 mIU/mL Salicylates < 2.50 (<30) mg/dL Acetaminophen < 15 mcg/mL Serum Alcohol < 10 (<10) mg/dL Result Diagrams: 04/28/17 03:20 04/28/17 03:20 Lab Statement: Any lab studies that have been ordered have been reviewed, and results considered in the medical decision making process. Re-Evaluation - Re-Evaluation First Eval Re-Evaluation Time: 05:25 Change: Unchanged - Pt is medically clear for psych eval. Course/Dx - Course Course Of Treatment: pt given ondansetron 4mg ODT and omeprazole 20mg po for sxs of nausea and "gassy" abdomen. Amylase, lipase and LFT's normal, except slightly elevated alk phos. Pt does not have an acute abdomen. Cleared for mental health evaluation at 0527. Care to Dr. Cardona at 0700 with change of shift and MHE pending. - Differential Dx/Clinical Impression Differential Diagnosis/HQI/PQRI: Positive: Acute Psychosis, Anxiety, Bipolar Disorder, Schizophrenia, Suicidal Ideation, Other - schizoaffective disorder Provider Diagnosis: Schizoaffective disorder, History of posttraumatic stress disorder (PTSD), Schizoaffective disorder, Anxiety Discharge - Discharge Plan Condition: Stable Disposition: OTHER Discharge Disposition Comment: care to Dr. Cardona at change of shift, with MHE pending The documentation as recorded by the Jacob pringle Benjamin accurately reflects the service I personally performed and the decisions made by me, Emperatriz Ardon MD.
[2017-04-28] MEDS ORDERED: LORazepam TAB(*) 1 MG PO ONE ×2 (08:24→10:58)
[2017-04-28 09:45] LABS: Urine Bacteria 1+ (Absent); Urine Bilirubin Negative (Negative); Urine Glucose Negative (Negative); Urine Nitrite Negative (Negative)
[2017-04-28 10:19] LABS: Benzodiazepine Urine Screen None Detected (None Detect)
[2017-04-28] MEDS ORDERED: hydrOXYzine HCL TAB* 50 MG PO ONE (10:56)
[2017-04-28] MEDS ORDERED: Paliperidone TAB* 6 MG PO ONE (10:58)
[2017-04-28] MEDS ORDERED: Nicotine Inhaler* 10 MG AMP INH PRN (15:56)
[2017-04-28] MEDS ORDERED: traZODone TAB* 50 MG TAB PO PRN (15:59)
[2017-04-28] MEDS ORDERED: Mouth Piece, Nicotine* 1 EACH CARTRIDGE INH ONE (16:30)
[2017-04-28] MEDS: hydrOXYzine HCL TAB* 50 MG PO PRN ×2 (17:25→21:49)
[2017-04-28] MEDS: chlorproMAZINE TAB* 100 MG PO ONE (19:11)
--- NOTE | 2017-04-28 20:47 | ADMNOTE ---
Identification - Identify Employment Status: Disabled Hx Psychiatric Hospitalization: Yes - multiple past admissions, most recent discharge 04/25/17 Prior Psychiatric Diagnosis: schizoaffective disorder, borderline personality disorder, PTSD Arrived to Hospital Via: Ambulatory History - Objective HPI: 32 year old white female who was discharged 04/25/17 after a three week stay at [facility] for suicidal ideation. She had been on a waiting list for [facility] but decided to come home. She quickly had agitated insomnia and suicidal ideation despite trazodone 50 mg HS, effexor XR 75 mg bid, and Invega 6 mg daily. She brought herself to the hospital due to her fear of committing suicide Past Medical History: past history of asthma, currently controlled. Smokes one pack of cigarettes daily. BMI of 36 indicates obesity. Lab Results: mostly in normal range but MCV is 79 Exam Appearance: Well Developed/Nourished, Obese Hygiene: Normal Grooming: Fairly Well Kept Psychomotor Activities: Abnormal-Decreased Exhibits Abnormal Movement: No Attitude and Relatedness: Cooperative Eye Contact: Fair - Speech Quality: Unpressured Latencies: Normal Quantity: Terse Patient's Decription of Mood: "Sad" Observed Affect: Constricted Affect Consistent with: Dysphoria Patient's Thought Process: Coherent, Goal Directed Thought Content: Yes Passive Wish, No Suicidal Planning, No Homicidal Ideation, No Paranoid Ideation Experiencing Hallucinations: No, Sensorium is Clear Type of Hallucinations: Visual: No, Auditory: No, Command: No Level of Consciousness: Alert Orientation: Yes Intact, Yes Orientated to Time, Yes Orientated to Place, Yes Orientated to Person Impulse Control: Impaired Insight and Judgement: Fair Impression - Impression Clinical Impression: Primary borderline personality with diagnosis of schizoaffective disorder as well. Merits admission due to high risk agitated insomnia coupled with suicidal ideation and hopelessness. termite control servicer plan might include ECT again if she agrees. Merits Inpatient Hospitalization: Yes - [place] Mental Illness: Schizoaffective Disorder, PTSD, tobacco use disorder moderate - [place] II MR and Personality Disorder: Borderline Personality Disorder - [place] III Medical Illness: asthma, obesity - [place] IV Stressors: not acute - [place] V [id number]: 40 Estimate of Highest-Past Year: 50 Plan - Treatment Plan Continued Medication Management: Different Medication - move all of effexor XR to 150 mg am, start gabapentin 300 mg bid, raise trazodone to 100 mg HS Medications: Current Medications Acetaminophen (Tylenol Tab*) 650 mg PO Q4H PRN PRN Reason: for pain; or Temp >101 F Al Hydrox/Mg Hydrox/Simethicone (Maalox Plus*) 30 ml PO Q4H PRN PRN Reason: INDIGESTION Hydroxyzine HCl (Atarax Tab*) 50 mg PO Q6H PRN PRN Reason: AGITATION/ANXIETY/INSOMNIA Last Admin: 04/28/17 17:25 Dose: 50 mg Nicotine (Nicotine Inhaler*) 10 mg INH Q2H PRN PRN Reason: CRAVING Nicotine Polacrilex (Nicotine Gum*) 2 mg PO Q2H PRN PRN Reason: CRAVING Paliperidone (Invega Tab*) 6 mg PO DAILY [facility] Trazodone HCl (Desyrel Tab*) 50 mg PO BEDTIME PRN PRN Reason: INSOMNIA Last Admin: 04/28/17 19:11 Dose: 50 mg Venlafaxine HCl (Effexor Xr Cap*) 75 mg PO BID SUDHIR Last Admin: 04/28/17 19:12 Dose: 75 mg - Discharge Plan Discharge Plan: Consider Longer Term Tx
[2017-04-28] MEDS ORDERED: Venlafaxine EXT RELEASE CAP* 75 MG PO SCH (21:00)
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
[2017-04-29] MEDS: hydrOXYzine HCL TAB* 50 MG PO PRN ×2 (06:55→14:46)
[2017-04-29] MEDS: Vitamin THERAPEUTIC TAB PO SCH (08:27)
[2017-04-29] MEDS: Paliperidone TAB* 6 MG PO SCH (08:28)
[2017-04-29] MEDS: Venlafaxine EXT RELEASE CAP* 75 MG PO SCH (08:28)
[2017-04-29] MEDS ORDERED: chlorproMAZINE TAB* 100 MG ONE (12:50)
[2017-04-29] MEDS: chlorproMAZINE TAB* 100 MG PO ONE (12:51)
--- NOTE | 2017-04-29 15:36 | PN ---
Subjective - Subjective Service Type: 13816 Hosp care 15 min low complexity Subjective: Patient remains agitated and anxious. Still having SI. Wants transfer back to [facility]. Spoke with [facility] Clinical Director, Rambo Woods, who agreed to keep her in her previous spot on their waiting list. Objective - Appearance Appearance: Obese Dysmorphic Features: No Hygiene: Normal Grooming: Fairly Well Kept - Behavior Psychomotor Activities: Abnormal-Increased Exhibits Abnormal Movement: No - Attitude and Relatedness Attitude and Relatedness: Needy Eye Contact: Fair - Speech Quality: Unpressured Latencies: Normal Quantity: Appropriate - Mood Patient's Decription of Mood: "Irritable" - Affect Observed Affect: Tense Affect Consistent with: Dysphoria - Thought Process Patient's Thought Process: Goal Directed Thought Content: Yes Suicidal Planning, No Passive Wish, No Homicidal Ideation, No Paranoid Ideation - Sensorium Experiencing Hallucinations: No, Sensorium is Clear Type of Hallucinations: Visual: No, Auditory: No, Command: No - Level of Consciousness Level of Consciousness: Agitated Orientation: Yes Intact, Yes Orientated to Time, Yes Orientated to Place, Yes Orientated to Person - Impulse Control Impulse Control: Poor - Insight and Judgement Insight and Judgement: Impaired - Group Participation Particating in Group Activities: No - Medication Management Medication Management Adherence: Yes Assessment - Assessment Merits Inpatient Hospitalization: For Immediate Safety, For Stabilization Inpatient DSM-IV Dx: Schizoaffective DO, Bipolar Type Clinical Impression: 32 y.o. , white female with a history of schizoaffective DO and multiple past psychiatric admissions, recently released from [facility], followed by a three week admission at [facility], who arrives voluntarily seeking readmission to the hospital due to agitation and SI. Plan - Plan Treatment Plan: Name: ADRIANA GOTTI Birthdate: 1985 [id number] Continue paliperidone, trazodone and venlafaxine XR therapies. Add gabapentin 600mg PO BID. Will refer back to [facility]. Continued Medication Management: Different Medication Medications: Current Medications Acetaminophen (Tylenol Tab*) 650 mg PO Q4H PRN PRN Reason: for pain; or Temp >101 F Al Hydrox/Mg Hydrox/Simethicone (Maalox Plus*) 30 ml PO Q4H PRN PRN Reason: INDIGESTION Hydroxyzine HCl (Atarax Tab*) 50 mg PO Q6H PRN PRN Reason: AGITATION/ANXIETY/INSOMNIA Last Admin: 04/29/17 14:46 Dose: 50 mg Multivitamins (Theragran Tab*) 1 tab PO DAILY [facility] Last Admin: 04/29/17 08:27 Dose: Not Given Nicotine (Nicotine Inhaler*) 10 mg INH Q2H PRN PRN Reason: CRAVING Nicotine Polacrilex (Nicotine Gum*) 2 mg PO Q2H PRN PRN Reason: CRAVING Paliperidone (Invega Tab*) 6 mg PO DAILY [facility] Last Admin: 04/29/17 08:28 Dose: 6 mg Trazodone HCl (Desyrel Tab*) 100 mg PO BEDTIME [facility] Venlafaxine HCl (Effexor Xr Cap*) 150 mg PO QAM [facility] Last Admin: 04/29/17 08:28 Dose: 150 mg - Discharge Plan Discharge Plan: Consider Longer Term Tx
[2017-04-29] MEDS: Gabapentin CAP(*) 300 MG PO SCH (19:13)
[2017-04-29] MEDS: traZODone TAB* 100 MG PO SCH (19:13)
[2017-04-29] MEDS: Nicotine GUM* 2 MG PO PRN (19:15)
[2017-04-29] MEDS: chlorproMAZINE TAB* 100 MG PO PRN (21:01)
[2017-04-30 07:32] LABS: HDL Cholesterol 35.5 mg/dL
[2017-04-30] MEDS: Gabapentin CAP(*) 300 MG PO SCH ×2 (08:24→19:44)
[2017-04-30] MEDS: Venlafaxine EXT RELEASE CAP* 75 MG PO SCH (08:24)
[2017-04-30] MEDS: Paliperidone TAB* 6 MG PO SCH (08:25)
[2017-04-30] MEDS: Vitamin THERAPEUTIC TAB PO SCH (09:03)
[2017-04-30] MEDS: chlorproMAZINE TAB* 100 MG PO PRN (09:21)
[2017-04-30] MEDS: hydrOXYzine HCL TAB* 50 MG PO PRN (11:09)
[2017-04-30] MEDS: Nicotine GUM* 2 MG PO PRN ×3 (11:09→17:39)
--- NOTE | 2017-04-30 11:33 | PN ---
[facility]: Group Therapy Note - Service Type Service Type: [id number] Group Psychotherapy - Cognitive Behavioral Group Therapy ( CBT):Patient attended CBT programming this morning and presented with flat affect that did not vary with discussion. Although responsive to direct prompts to respond to questions, patient did not engage in spontaneous conversation.
--- NOTE | 2017-04-30 15:07 | PN ---
Subjective - Subjective Service Type: [id number] Hosp care 15 min low complexity Subjective: Bree is struggling with racing thoughts and anxiety, requesting frequent prn' s. Today she is seen along with her , Gab, who is supportive. She awaits readmission to [facility]. She is unable to contract for safety, admitting to SI, even here on the unit, and remains on q15min checks status for this reason. Objective - Appearance Appearance: Obese Dysmorphic Features: No Hygiene: Normal Grooming: Fairly Well Kept - Behavior Psychomotor Activities: Normal Exhibits Abnormal Movement: No - Attitude and Relatedness Attitude and Relatedness: Cooperative Eye Contact: Fair - Speech Quality: Unpressured Latencies: Normal Quantity: Appropriate - Mood Patient's Decription of Mood: "Anxious" - Affect Observed Affect: Labile Affect Consistent with: Dysphoria - Thought Process Patient's Thought Process: Goal Directed Thought Content: Yes Suicidal Planning, No Passive Wish, No Homicidal Ideation, No Paranoid Ideation - Sensorium Experiencing Hallucinations: No, Sensorium is Clear Type of Hallucinations: Visual: No, Auditory: No, Command: No - Level of Consciousness Level of Consciousness: Agitated Orientation: Yes Intact, Yes Orientated to Time, Yes Orientated to Place, Yes Orientated to Person - Impulse Control Impulse Control: Poor - Insight and Judgement Insight and Judgement: Impaired - Group Participation Particating in Group Activities: No - Medication Management Medication Management Adherence: Yes Assessment - Assessment Merits Inpatient Hospitalization: For Immediate Safety, For Stabilization Inpatient DSM-IV Dx: Schizoaffective DO, Bipolar Type Clinical Impression: 32 y.o. , white female with a history of schizoaffective DO and multiple past psychiatric admissions, recently released from [facility], followed by a three week admission at [facility], who arrives voluntarily seeking readmission to the hospital due to agitation and SI. Plan - Plan Treatment Plan: Name: BREE GOTTI Birthdate: 1985 [id number] Continue paliperidone, trazodone, gabapentin and venlafaxine XR therapies. Add clonazepam 1mg PO BID as prn for agitation. Will refer back to [facility]. Continued Medication Management: Continue Outpt Medication Medications: Current Medications Acetaminophen (Tylenol Tab*) 650 mg PO Q4H PRN PRN Reason: for pain; or Temp >101 F Al Hydrox/Mg Hydrox/Simethicone (Maalox Plus*) 30 ml PO Q4H PRN PRN Reason: INDIGESTION Chlorpromazine HCl (Thorazine Tab*) 100 mg PO Q6H PRN PRN Reason: AGITATION/ANXIETY/INSOMNIA Last Admin: 04/30/17 09:21 Dose: 100 mg Gabapentin (Neurontin Cap(*)) 600 mg PO BID [facility] Last Admin: 04/30/17 08:24 Dose: 600 mg Hydroxyzine HCl (Atarax Tab*) 50 mg PO Q6H PRN PRN Reason: AGITATION/ANXIETY/INSOMNIA Last Admin: 04/30/17 11:09 Dose: 50 mg Multivitamins (Theragran Tab*) 1 tab PO DAILY [facility] Last Admin: 04/30/17 09:03 Dose: Not Given Nicotine (Nicotine Inhaler*) 10 mg INH Q2H PRN PRN Reason: CRAVING Nicotine Polacrilex (Nicotine Gum*) 2 mg PO Q2H PRN PRN Reason: CRAVING Last Admin: 04/30/17 13:05 Dose: 2 mg Paliperidone (Invega Tab*) 6 mg PO DAILY [facility] Last Admin: 04/30/17 08:25 Dose: 6 mg Trazodone HCl (Desyrel Tab*) 100 mg PO BEDTIME [facility] Last Admin: 04/29/17 19:13 Dose: 100 mg Venlafaxine HCl (Effexor Xr Cap*) 150 mg PO QAM [facility] Last Admin: 04/30/17 08:24 Dose: 150 mg - Discharge Plan Discharge Plan: Consider Longer Term Tx Lab Results - Lab Results Lab Results: 04/30/17 04/30/17 06:55 06:55 Hemoglobin A1c 5.8 H Triglycerides 79 Cholesterol 141 LDL Cholesterol 90 HDL Cholesterol 35.5
[2017-04-30] MEDS: clonazePAM TAB(*) 1 MG PO PRN (18:44)
[2017-04-30] MEDS: traZODone TAB* 100 MG PO SCH (19:44)
[2017-05-01] MEDS: chlorproMAZINE TAB* 100 MG PO PRN ×2 (08:20→17:50)
[2017-05-01] MEDS: Venlafaxine EXT RELEASE CAP* 75 MG PO SCH (08:20)
[2017-05-01] MEDS: Gabapentin CAP(*) 300 MG PO SCH ×2 (08:20→20:08)
[2017-05-01] MEDS: Vitamin THERAPEUTIC TAB PO SCH (08:21)
[2017-05-01] MEDS: Paliperidone TAB* 6 MG PO SCH (08:21)
[2017-05-01] MEDS: Nicotine GUM* 2 MG PO PRN ×3 (10:43→19:32)
[2017-05-01] MEDS: hydrOXYzine HCL TAB* 50 MG PO PRN (12:49)
[2017-05-01] MEDS: clonazePAM TAB(*) 1 MG PO PRN (12:49)
[2017-05-01] MEDS: traZODone TAB* 100 MG PO SCH (20:08)
[2017-05-02] MEDS: chlorproMAZINE TAB* 100 MG PO PRN ×2 (08:26→18:54)
[2017-05-02] MEDS: Paliperidone TAB* 6 MG PO SCH (08:27)
[2017-05-02] MEDS: Venlafaxine EXT RELEASE CAP* 75 MG PO SCH (08:27)
[2017-05-02] MEDS: Vitamin THERAPEUTIC TAB PO SCH (08:27)
[2017-05-02] MEDS: Gabapentin CAP(*) 300 MG PO SCH ×2 (08:27→21:15)
[2017-05-02] MEDS: clonazePAM TAB(*) 1 MG PO PRN (12:38)
--- NOTE | 2017-05-02 17:43 | PN ---
Subjective - Subjective Service Type: [id number] Hosp care 15 min low complexity Subjective: No change in Bree's mental status. Still hearing voices telling her they are coming after her. Feels unsafe and fearful. Wants to go to [facility]. Objective - Appearance Appearance: Obese Dysmorphic Features: No Hygiene: Normal Grooming: Well Kept - Behavior Psychomotor Activities: Abnormal-Decreased Exhibits Abnormal Movement: No - Attitude and Relatedness Attitude and Relatedness: Cooperative Eye Contact: Good - Speech Quality: Unpressured Latencies: Normal Quantity: Appropriate - Mood Patient's Decription of Mood: "Terrible" - Affect Observed Affect: Constricted Affect Consistent with: Dysphoria - Thought Process Patient's Thought Process: Coherent, Goal Directed Thought Content: Yes Paranoid Ideation, No Passive Wish, No Suicidal Planning, No Homicidal Ideation - Sensorium Experiencing Hallucinations: Yes Type of Hallucinations: Visual: No, Auditory: Yes, Command: No - Level of Consciousness Level of Consciousness: Alert Orientation: Yes Intact, Yes Orientated to Time, Yes Orientated to Place, Yes Orientated to Person - Impulse Control Impulse Control: Intact - Insight and Judgement Insight and Judgement: Poor - Group Participation Particating in Group Activities: No - Medication Management Medication Management Adherence: Yes Assessment - Assessment Merits Inpatient Hospitalization: For Stabilization, Pending Safe DC Plan Inpatient DSM-IV Dx: Schizoaffective DO, Bipolar Type Plan - Plan Treatment Plan: Name: BREE GOTTI Birthdate: 1985 [id number] Continued Medication Management: Continue Outpt Medication Medications: Current Medications Acetaminophen (Tylenol Tab*) 650 mg PO Q4H PRN PRN Reason: for pain; or Temp >101 F Al Hydrox/Mg Hydrox/Simethicone (Maalox Plus*) 30 ml PO Q4H PRN PRN Reason: INDIGESTION Chlorpromazine HCl (Thorazine Tab*) 100 mg PO Q6H PRN PRN Reason: AGITATION/ANXIETY/INSOMNIA Last Admin: 05/02/17 08:26 Dose: 100 mg Clonazepam (Klonopin Tab(*)) 1 mg PO BID PRN PRN Reason: AGITATION/ANXIETY/INSOMNIA Last Admin: 05/02/17 12:38 Dose: 1 mg Gabapentin (Neurontin Cap(*)) 600 mg PO BID [facility] Last Admin: 05/02/17 08:27 Dose: 600 mg Hydroxyzine HCl (Atarax Tab*) 50 mg PO Q6H PRN PRN Reason: AGITATION/ANXIETY/INSOMNIA Last Admin: 05/01/17 12:49 Dose: 50 mg Multivitamins (Theragran Tab*) 1 tab PO DAILY [facility] Last Admin: 05/02/17 08:27 Dose: Not Given Nicotine (Nicotine Inhaler*) 10 mg INH Q2H PRN PRN Reason: CRAVING Nicotine Polacrilex (Nicotine Gum*) 2 mg PO Q2H PRN PRN Reason: CRAVING Last Admin: 05/01/17 19:32 Dose: 2 mg Paliperidone (Invega Tab*) 6 mg PO DAILY [facility] Last Admin: 05/02/17 08:27 Dose: 6 mg Trazodone HCl (Desyrel Tab*) 100 mg PO BEDTIME [facility] Last Admin: 05/01/17 20:08 Dose: 100 mg Venlafaxine HCl (Effexor Xr Cap*) 150 mg PO QAM [facility] Last Admin: 05/02/17 08:27 Dose: 150 mg - Discharge Plan Discharge Plan: Consider Longer Term Tx
[2017-05-02] MEDS: traZODone TAB* 100 MG PO SCH (21:15)
[2017-05-03] MEDS: Vitamin THERAPEUTIC TAB PO SCH (08:10)
[2017-05-03] MEDS: Gabapentin CAP(*) 300 MG PO SCH ×2 (08:11→20:21)
[2017-05-03] MEDS: Venlafaxine EXT RELEASE CAP* 75 MG PO SCH (08:11)
[2017-05-03] MEDS: Paliperidone TAB* 6 MG PO SCH (08:11)
[2017-05-03] MEDS: Nicotine GUM* 2 MG PO PRN (10:21)
--- NOTE | 2017-05-03 10:39 | PN ---
Subjective - Subjective Service Type: [id number] Hosp care 15 min low complexity Subjective: Patient continues to struggle with anxiety, dysphoria and irritability. Cannot contract for safety. Objective - Appearance Appearance: Obese Dysmorphic Features: No Hygiene: Normal Grooming: Fairly Well Kept - Behavior Psychomotor Activities: Normal Exhibits Abnormal Movement: No - Attitude and Relatedness Attitude and Relatedness: Cooperative Eye Contact: Fair - Speech Quality: Unpressured Latencies: Normal Quantity: Appropriate - Mood Patient's Decription of Mood: "Irritable" - Affect Observed Affect: Labile Affect Consistent with: Dysphoria - Thought Process Patient's Thought Process: Coherent Thought Content: Yes Paranoid Ideation, No Passive Wish, No Suicidal Planning, No Homicidal Ideation - Sensorium Experiencing Hallucinations: Yes Type of Hallucinations: Visual: No, Auditory: Yes, Command: No - Level of Consciousness Level of Consciousness: Alert Orientation: Yes Intact, Yes Orientated to Time, Yes Orientated to Place, Yes Orientated to Person - Impulse Control Impulse Control: Tenuous - Insight and Judgement Insight and Judgement: Fair - Group Participation Particating in Group Activities: No - Medication Management Medication Management Adherence: Yes Assessment - Assessment Merits Inpatient Hospitalization: For Immediate Safety, For Stabilization Inpatient DSM-IV Dx: Schizoaffective DO, Bipolar Type Clinical Impression: 32 y.o. , white female with a history of schizoaffective DO and multiple past psychiatric admissions, recently released from [facility], followed by a three week admission at [facility], who arrives voluntarily seeking readmission to the hospital due to agitation and SI. Plan - Plan Treatment Plan: Name: ADRIANA GOTTI Birthdate: 1985 [id number] Continue paliperidone, trazodone, gabapentin and venlafaxine XR therapies. Also on clonazepam 1mg PO BID as prn for agitation. Will refer back to [facility]. Medications: Current Medications Acetaminophen (Tylenol Tab*) 650 mg PO Q4H PRN PRN Reason: for pain; or Temp >101 F Al Hydrox/Mg Hydrox/Simethicone (Maalox Plus*) 30 ml PO Q4H PRN PRN Reason: INDIGESTION Chlorpromazine HCl (Thorazine Tab*) 100 mg PO Q6H PRN PRN Reason: AGITATION/ANXIETY/INSOMNIA Last Admin: 05/02/17 18:54 Dose: 100 mg Clonazepam (Klonopin Tab(*)) 1 mg PO BID PRN PRN Reason: AGITATION/ANXIETY/INSOMNIA Last Admin: 05/02/17 12:38 Dose: 1 mg Gabapentin (Neurontin Cap(*)) 600 mg PO BID [facility] Last Admin: 05/03/17 08:11 Dose: 600 mg Hydroxyzine HCl (Atarax Tab*) 50 mg PO Q6H PRN PRN Reason: AGITATION/ANXIETY/INSOMNIA Last Admin: 05/01/17 12:49 Dose: 50 mg Multivitamins (Theragran Tab*) 1 tab PO DAILY [facility] Last Admin: 05/03/17 08:10 Dose: Not Given Nicotine (Nicotine Inhaler*) 10 mg INH Q2H PRN PRN Reason: CRAVING Nicotine Polacrilex (Nicotine Gum*) 2 mg PO Q2H PRN PRN Reason: CRAVING Last Admin: 05/03/17 10:21 Dose: 2 mg Paliperidone (Invega Tab*) 6 mg PO DAILY [facility] Last Admin: 05/03/17 08:11 Dose: 6 mg Trazodone HCl (Desyrel Tab*) 100 mg PO BEDTIME [facility] Last Admin: 05/02/17 21:15 Dose: 100 mg Venlafaxine HCl (Effexor Xr Cap*) 150 mg PO QAM [facility] Last Admin: 05/03/17 08:11 Dose: 150 mg
[2017-05-03] MEDS: clonazePAM TAB(*) 1 MG PO PRN ×2 (13:07→18:13)
--- NOTE | 2017-05-03 13:19 | PN ---
[facility]: Group Therapy Note - Service Type Service Type: [id number] Group Psychotherapy - Cognitive Behavioral Group Therapy ( CBT):Patient was attentive and participatory in CBT programming this morning, and remained in good behavioral control. Patient expressed positive insights regarding relevant treatment interventions and goals.
[2017-05-03] MEDS: chlorproMAZINE TAB* 100 MG PO PRN (14:57)
[2017-05-03] MEDS: traZODone TAB* 100 MG PO SCH (20:21)
[2017-05-04] MEDS: Venlafaxine EXT RELEASE CAP* 75 MG PO SCH (08:29)
[2017-05-04] MEDS: Gabapentin CAP(*) 300 MG PO SCH ×2 (08:29→21:45)
[2017-05-04] MEDS: Paliperidone TAB* 6 MG PO SCH (08:30)
[2017-05-04] MEDS: hydrOXYzine HCL TAB* 50 MG PO PRN (08:32)
[2017-05-04] MEDS: Vitamin THERAPEUTIC TAB PO SCH (08:35)
--- NOTE | 2017-05-04 10:44 | PN ---
Subjective - Subjective Service Type: [id number] Hosp care 15 min low complexity Subjective: Patient was packed and ready for transfer to [facility] when we received a call from them, indicating that they could not offer the bed today. They could not commit to a specific transfer date, stating only that they were dealing with an emergency situation at their facility. Bree took this news in stride and denies acute thoughts of self-harm. She has been behaviorally under control on the unit. Objective - Appearance Appearance: Obese Dysmorphic Features: No Hygiene: Normal Grooming: Fairly Well Kept - Behavior Psychomotor Activities: Normal Exhibits Abnormal Movement: No - Attitude and Relatedness Attitude and Relatedness: Cooperative Eye Contact: Fair - Speech Quality: Unpressured Latencies: Normal Quantity: Appropriate - Mood Patient's Decription of Mood: "Anxious" - Affect Observed Affect: Fair Affect Consistent with: Dysphoria - Thought Process Patient's Thought Process: Coherent Thought Content: No Passive Wish, No Suicidal Planning, No Homicidal Ideation, No Paranoid Ideation - Sensorium Experiencing Hallucinations: No, Sensorium is Clear Type of Hallucinations: Visual: No, Auditory: No, Command: No - Level of Consciousness Level of Consciousness: Alert Orientation: Yes Intact, Yes Orientated to Time, Yes Orientated to Place, Yes Orientated to Person - Impulse Control Impulse Control: Tenuous - Insight and Judgement Insight and Judgement: Fair - Group Participation Particating in Group Activities: No - Medication Management Medication Management Adherence: Yes Assessment - Assessment Merits Inpatient Hospitalization: For Immediate Safety, For Stabilization Inpatient DSM-IV Dx: Schizoaffective DO, Bipolar Type Clinical Impression: 32 y.o. , white female with a history of schizoaffective DO and multiple past psychiatric admissions, recently released from [facility], followed by a three week admission at [facility], who arrives voluntarily seeking readmission to the hospital due to agitation and SI. Plan - Plan Treatment Plan: Name: BREE GOTTI Birthdate: 1985 [id number] Continue paliperidone, trazodone, gabapentin and venlafaxine XR therapies. Also on clonazepam 1mg PO BID as prn for agitation. Await transfer back to [facility]. Continued Medication Management: Different Medication Medications: Current Medications Acetaminophen (Tylenol Tab*) 650 mg PO Q4H PRN PRN Reason: for pain; or Temp >101 F Al Hydrox/Mg Hydrox/Simethicone (Maalox Plus*) 30 ml PO Q4H PRN PRN Reason: INDIGESTION Chlorpromazine HCl (Thorazine Tab*) 100 mg PO Q6H PRN PRN Reason: AGITATION/ANXIETY/INSOMNIA Last Admin: 05/03/17 14:57 Dose: 100 mg Clonazepam (Klonopin Tab(*)) 1 mg PO BID PRN PRN Reason: AGITATION/ANXIETY/INSOMNIA Last Admin: 05/03/17 18:13 Dose: 1 mg Gabapentin (Neurontin Cap(*)) 600 mg PO BID [facility] Last Admin: 05/04/17 08:29 Dose: 600 mg Hydroxyzine HCl (Atarax Tab*) 50 mg PO Q6H PRN PRN Reason: AGITATION/ANXIETY/INSOMNIA Last Admin: 05/04/17 08:32 Dose: 50 mg Multivitamins (Theragran Tab*) 1 tab PO DAILY [facility] Last Admin: 05/04/17 08:35 Dose: 1 tab Nicotine (Nicotine Inhaler*) 10 mg INH Q2H PRN PRN Reason: CRAVING Nicotine Polacrilex (Nicotine Gum*) 2 mg PO Q2H PRN PRN Reason: CRAVING Last Admin: 05/03/17 10:21 Dose: 2 mg Paliperidone (Invega Tab*) 6 mg PO DAILY [facility] Last Admin: 05/04/17 08:30 Dose: 6 mg Trazodone HCl (Desyrel Tab*) 100 mg PO BEDTIME [facility] Last Admin: 05/03/17 20:21 Dose: 100 mg Venlafaxine HCl (Effexor Xr Cap*) 150 mg PO QAM [facility] Last Admin: 05/04/17 08:29 Dose: 150 mg - Discharge Plan Discharge Plan: Consider Longer Term Tx
[2017-05-04] MEDS: clonazePAM TAB(*) 1 MG PO PRN (11:48)
[2017-05-04] MEDS: traZODone TAB* 100 MG PO SCH (21:46)
[2017-05-05] MEDS: Gabapentin CAP(*) 300 MG PO SCH ×2 (08:22→21:16)
[2017-05-05] MEDS: Venlafaxine EXT RELEASE CAP* 75 MG PO SCH (08:22)
[2017-05-05] MEDS: Paliperidone TAB* 6 MG PO SCH (08:22)
[2017-05-05] MEDS: chlorproMAZINE TAB* 100 MG PO PRN (08:23)
[2017-05-05] MEDS: Vitamin THERAPEUTIC TAB PO SCH (08:24)
--- NOTE | 2017-05-05 11:03 | PN ---
Subjective - Subjective Service Type: [id number] Hosp care 15 min low complexity Subjective: Bree is anxious and eager for transfer back to [facility]. "My plan is to hopefully be on the inpatient unit for 4 or 5 months and then get into the [facility]. After that I think my father is gonna let Gab and I live in his apartment in [place] as long as Gab fixes it up. [place] neighborhood but it couldn't be worse than living in [place]." She denies SI currently. Objective - Appearance Appearance: Obese Dysmorphic Features: No Hygiene: Normal Grooming: Fairly Well Kept - Behavior Psychomotor Activities: Normal Exhibits Abnormal Movement: No - Attitude and Relatedness Attitude and Relatedness: Cooperative Eye Contact: Fair - Speech Quality: Unpressured Latencies: Normal Quantity: Appropriate - Mood Patient's Decription of Mood: "Anxious" - Affect Observed Affect: Fair Affect Consistent with: Dysphoria - Thought Process Patient's Thought Process: Goal Directed Thought Content: No Passive Wish, No Suicidal Planning, No Homicidal Ideation, No Paranoid Ideation - Sensorium Experiencing Hallucinations: No, Sensorium is Clear Type of Hallucinations: Visual: No, Auditory: No, Command: No - Level of Consciousness Level of Consciousness: Agitated Orientation: Yes Intact, Yes Orientated to Time, Yes Orientated to Place, Yes Orientated to Person - Impulse Control Impulse Control: Tenuous - Insight and Judgement Insight and Judgement: Fair - Group Participation Particating in Group Activities: No - Medication Management Medication Management Adherence: Yes Assessment - Assessment Merits Inpatient Hospitalization: For Immediate Safety, For Stabilization Inpatient DSM-IV Dx: Schizoaffective DO, Bipolar Type Clinical Impression: 32 y.o. , white female with a history of schizoaffective DO and multiple past psychiatric admissions, recently released from [facility], followed by a three week admission at [facility], who arrives voluntarily seeking readmission to the hospital due to agitation and SI. Plan - Plan Treatment Plan: Name: BREE GOTTI Birthdate: 1985 [id number] Continue paliperidone, trazodone, gabapentin and venlafaxine XR therapies. Also on clonazepam 1mg PO BID as prn for agitation. Await transfer back to [facility]. Continued Medication Management: Different Medication Medications: Current Medications Acetaminophen (Tylenol Tab*) 650 mg PO Q4H PRN PRN Reason: for pain; or Temp >101 F Al Hydrox/Mg Hydrox/Simethicone (Maalox Plus*) 30 ml PO Q4H PRN PRN Reason: INDIGESTION Chlorpromazine HCl (Thorazine Tab*) 100 mg PO Q6H PRN PRN Reason: AGITATION/ANXIETY/INSOMNIA Last Admin: 05/05/17 08:23 Dose: 100 mg Clonazepam (Klonopin Tab(*)) 1 mg PO BID PRN PRN Reason: AGITATION/ANXIETY/INSOMNIA Last Admin: 05/04/17 11:48 Dose: 1 mg Gabapentin (Neurontin Cap(*)) 600 mg PO BID [facility] Last Admin: 05/05/17 08:22 Dose: 600 mg Hydroxyzine HCl (Atarax Tab*) 50 mg PO Q6H PRN PRN Reason: AGITATION/ANXIETY/INSOMNIA Last Admin: 05/04/17 08:32 Dose: 50 mg Multivitamins (Theragran Tab*) 1 tab PO DAILY [facility] Last Admin: 05/05/17 08:24 Dose: Not Given Nicotine (Nicotine Inhaler*) 10 mg INH Q2H PRN PRN Reason: CRAVING Nicotine Polacrilex (Nicotine Gum*) 2 mg PO Q2H PRN PRN Reason: CRAVING Last Admin: 05/03/17 10:21 Dose: 2 mg Paliperidone (Invega Tab*) 6 mg PO DAILY [facility] Last Admin: 05/05/17 08:22 Dose: 6 mg Trazodone HCl (Desyrel Tab*) 100 mg PO BEDTIME [facility] Last Admin: 05/04/17 21:46 Dose: 100 mg Venlafaxine HCl (Effexor Xr Cap*) 150 mg PO QAM [facility] Last Admin: 05/05/17 08:22 Dose: 150 mg - Discharge Plan Discharge Plan: Consider Longer Term Tx
[2017-05-05] MEDS: clonazePAM TAB(*) 1 MG PO PRN (11:12)
[2017-05-05] MEDS: Acetaminophen TAB* 325 MG PO PRN (18:25)
[2017-05-05] MEDS: traZODone TAB* 100 MG PO SCH (21:16)
[2017-05-06] MEDS: Paliperidone TAB* 6 MG PO SCH (08:17)
[2017-05-06] MEDS: Venlafaxine EXT RELEASE CAP* 75 MG PO SCH (08:17)
[2017-05-06] MEDS: Gabapentin CAP(*) 300 MG PO SCH ×2 (08:17→20:14)
[2017-05-06] MEDS: Vitamin THERAPEUTIC TAB PO SCH (08:18)
--- NOTE | 2017-05-06 12:30 | PN ---
Subjective - Subjective Service Type: [id number] Hosp care 15 min low complexity Subjective: Patient seen with , Gab. Very anxious and dysphoric. Doesn't feel clonazepam helpful. Feeling suicidal if discharged. Frustrated by delays with [facility]. Objective - Appearance Appearance: Obese Dysmorphic Features: No Hygiene: Normal Grooming: Fairly Well Kept - Behavior Psychomotor Activities: Normal Exhibits Abnormal Movement: No - Attitude and Relatedness Attitude and Relatedness: Cooperative Eye Contact: Fair - Speech Quality: Unpressured Latencies: Normal Quantity: Appropriate - Mood Patient's Decription of Mood: "Terrible" - Affect Observed Affect: Labile Affect Consistent with: Dysphoria - Thought Process Patient's Thought Process: Coherent Thought Content: Yes Suicidal Planning, No Passive Wish, No Homicidal Ideation, No Paranoid Ideation - Sensorium Experiencing Hallucinations: No, Sensorium is Clear Type of Hallucinations: Visual: No, Auditory: No, Command: No - Level of Consciousness Level of Consciousness: Alert Orientation: Yes Intact, Yes Orientated to Time, Yes Orientated to Place, Yes Orientated to Person - Impulse Control Impulse Control: Poor - Insight and Judgement Insight and Judgement: Impaired - Group Participation Particating in Group Activities: No - Medication Management Medication Management Adherence: Yes Assessment - Assessment Merits Inpatient Hospitalization: For Immediate Safety, For Stabilization Inpatient DSM-IV Dx: Schizoaffective DO, Bipolar Type Clinical Impression: 32 y.o. , white female with a history of schizoaffective DO and multiple past psychiatric admissions, recently released from [facility], followed by a three week admission at [facility], who arrives voluntarily seeking readmission to the hospital due to agitation and SI. Plan - Plan Treatment Plan: Name: ADRIANA GOTTI Birthdate: 1985 [id number] Continue paliperidone, trazodone, gabapentin and venlafaxine XR therapies. Will try diazepam 5mg TID as prn for agitation. Await transfer back to [facility]. Continued Medication Management: Continue Outpt Medication Medications: Current Medications Acetaminophen (Tylenol Tab*) 650 mg PO Q4H PRN PRN Reason: for pain; or Temp >101 F Last Admin: 05/05/17 18:25 Dose: 650 mg Al Hydrox/Mg Hydrox/Simethicone (Maalox Plus*) 30 ml PO Q4H PRN PRN Reason: INDIGESTION Chlorpromazine HCl (Thorazine Tab*) 100 mg PO Q6H PRN PRN Reason: AGITATION/ANXIETY/INSOMNIA Last Admin: 05/05/17 08:23 Dose: 100 mg Diazepam (Valium Tab(*)) 5 mg PO Q8H PRN PRN Reason: AGITATION/ANXIETY/INSOMNIA Gabapentin (Neurontin Cap(*)) 600 mg PO BID [facility] Last Admin: 05/06/17 08:17 Dose: 600 mg Hydroxyzine HCl (Atarax Tab*) 50 mg PO Q6H PRN PRN Reason: AGITATION/ANXIETY/INSOMNIA Last Admin: 05/04/17 08:32 Dose: 50 mg Multivitamins (Theragran Tab*) 1 tab PO DAILY [facility] Last Admin: 05/06/17 08:18 Dose: Not Given Nicotine (Nicotine Inhaler*) 10 mg INH Q2H PRN PRN Reason: CRAVING Nicotine Polacrilex (Nicotine Gum*) 2 mg PO Q2H PRN PRN Reason: CRAVING Last Admin: 05/03/17 10:21 Dose: 2 mg Paliperidone (Invega Tab*) 6 mg PO DAILY [facility] Last Admin: 05/06/17 08:17 Dose: 6 mg Trazodone HCl (Desyrel Tab*) 100 mg PO BEDTIME [facility] Last Admin: 05/05/17 21:16 Dose: 100 mg Venlafaxine HCl (Effexor Xr Cap*) 150 mg PO QAM [facility] Last Admin: 05/06/17 08:17 Dose: 150 mg - Discharge Plan Discharge Plan: Consider Longer Term Tx
[2017-05-06] MEDS: Diazepam TAB(*) 5 MG PO PRN (13:23)
[2017-05-06] MEDS: traZODone TAB* 100 MG PO SCH (20:14)
[2017-05-07] MEDS: Venlafaxine EXT RELEASE CAP* 75 MG PO SCH (08:12)
[2017-05-07] MEDS: Gabapentin CAP(*) 300 MG PO SCH ×2 (08:13→21:16)
[2017-05-07] MEDS: Paliperidone TAB* 6 MG PO SCH (08:14)
[2017-05-07] MEDS: Vitamin THERAPEUTIC TAB PO SCH (08:15)
--- NOTE | 2017-05-07 10:39 | PN ---
Subjective - Subjective Service Type: 25832 Hosp care 15 min low complexity Subjective: Patient is calm but reports ongoing voices "telling me to kill myself". Not internally preoccupied; no speech or thought disorder. Has not cut herself. [facility] Objective - Appearance Appearance: Well Developed/Nourished, Healthy Appearing Dysmorphic Features: No Hygiene: Normal Grooming: Well Kept - Behavior Psychomotor Activities: Normal Exhibits Abnormal Movement: No - Attitude and Relatedness Attitude and Relatedness: Well Related Eye Contact: Good - Speech Quality: Unpressured Latencies: Normal Quantity: Appropriate - Mood Patient's Decription of Mood: "Sad" - Affect Observed Affect: Fair Affect Consistent with: Euthymia - Thought Process Patient's Thought Process: Coherent, Goal Directed Thought Content: No Passive Wish, No Suicidal Planning, No Homicidal Ideation, No Paranoid Ideation - Sensorium Experiencing Hallucinations: No, Sensorium is Clear Type of Hallucinations: Visual: No, Auditory: Yes - by patient report, Command: No - Level of Consciousness Level of Consciousness: Alert Orientation: Yes Intact, Yes Orientated to Time, Yes Orientated to Place, Yes Orientated to Person - Impulse Control Impulse Control: Impaired - Insight and Judgement Insight and Judgement: Fair - Group Participation Particating in Group Activities: Yes - Medication Management Medication Management Adherence: Yes Assessment - Assessment Merits Inpatient Hospitalization: For Immediate Safety, Pending Safe DC Plan Inpatient DSM-IV Dx: Schizoaffective DO, Bipolar Type Clinical Impression: Primary borderline personality with diagnosis of schizoaffective disorder as well. Merited admission due to high risk agitated insomnia coupled with suicidal ideation and hopelessness. At this point reports command hallucinations to kill herself but does not have thought disorder or blunted affect; psychotic symptoms likely due to primitive borderline personality pathology. Will not add medication to address this. Plan - Plan Treatment Plan: Name: ADRIANA GOTTI Birthdate: 1985 [id number] Continued Medication Management: Continue Outpt Medication Medications: Current Medications Acetaminophen (Tylenol Tab*) 650 mg PO Q4H PRN PRN Reason: for pain; or Temp >101 F Last Admin: 05/05/17 18:25 Dose: 650 mg Al Hydrox/Mg Hydrox/Simethicone (Maalox Plus*) 30 ml PO Q4H PRN PRN Reason: INDIGESTION Chlorpromazine HCl (Thorazine Tab*) 100 mg PO Q6H PRN PRN Reason: AGITATION/ANXIETY/INSOMNIA Last Admin: 05/05/17 08:23 Dose: 100 mg Clonazepam (Klonopin Tab(*)) 1 mg PO BID PRN PRN Reason: AGITATION/ANXIETY/INSOMNIA Last Admin: 05/05/17 11:12 Dose: 1 mg Diazepam (Valium Tab(*)) 5 mg PO Q8H PRN PRN Reason: AGITATION/ANXIETY/INSOMNIA Last Admin: 05/06/17 13:23 Dose: 5 mg Gabapentin (Neurontin Cap(*)) 600 mg PO BID [facility] Last Admin: 05/07/17 08:13 Dose: 600 mg Hydroxyzine HCl (Atarax Tab*) 50 mg PO Q6H PRN PRN Reason: AGITATION/ANXIETY/INSOMNIA Last Admin: 05/04/17 08:32 Dose: 50 mg Multivitamins (Theragran Tab*) 1 tab PO DAILY [facility] Last Admin: 05/07/17 08:15 Dose: Not Given Nicotine (Nicotine Inhaler*) 10 mg INH Q2H PRN PRN Reason: CRAVING Nicotine Polacrilex (Nicotine Gum*) 2 mg PO Q2H PRN PRN Reason: CRAVING Last Admin: 05/03/17 10:21 Dose: 2 mg Paliperidone (Invega Tab*) 6 mg PO DAILY [facility] Last Admin: 05/07/17 08:14 Dose: 6 mg Trazodone HCl (Desyrel Tab*) 100 mg PO BEDTIME [facility] Last Admin: 05/06/17 20:14 Dose: 100 mg Venlafaxine HCl (Effexor Xr Cap*) 150 mg PO QAM [facility] Last Admin: 05/07/17 08:12 Dose: 150 mg - Discharge Plan Discharge Plan: Consider [facility] Outpatient Program[facility]
[2017-05-07] MEDS: Al Hydrox/Mg Hydrox/Simet LIQ* 30 ML UDC PO PRN (10:51)
[2017-05-07] MEDS: chlorproMAZINE TAB* 100 MG PO PRN (15:11)
[2017-05-07] MEDS: Diazepam TAB(*) 5 MG PO PRN (18:03)
[2017-05-07] MEDS: traZODone TAB* 100 MG PO SCH (21:16)
[2017-05-08] MEDS: Gabapentin CAP(*) 300 MG PO SCH ×2 (08:01→22:27)
[2017-05-08] MEDS: Venlafaxine EXT RELEASE CAP* 75 MG PO SCH (08:02)
[2017-05-08] MEDS: Paliperidone TAB* 6 MG PO SCH (08:02)
[2017-05-08] MEDS: Vitamin THERAPEUTIC TAB PO SCH (08:03)
[2017-05-08] MEDS: chlorproMAZINE TAB* 100 MG PO PRN ×2 (10:16→17:44)
[2017-05-08] MEDS: Al Hydrox/Mg Hydrox/Simet LIQ* 30 ML UDC PO PRN (10:16)
[2017-05-08] MEDS: traZODone TAB* 100 MG PO SCH (22:27)
[2017-05-09] MEDS: Venlafaxine EXT RELEASE CAP* 75 MG PO SCH (08:23)
[2017-05-09] MEDS: Vitamin THERAPEUTIC TAB PO SCH (08:23)
[2017-05-09] MEDS: Paliperidone TAB* 6 MG PO SCH (08:23)
[2017-05-09] MEDS: Gabapentin CAP(*) 300 MG PO SCH ×2 (08:23→20:05)
[2017-05-09] MEDS: Acetaminophen TAB* 325 MG PO PRN (09:11)
[2017-05-09] MEDS: Diazepam TAB(*) 5 MG PO PRN (09:33)
[2017-05-09] MEDS: chlorproMAZINE TAB* 100 MG PO PRN (12:40)
[2017-05-09] MEDS: Nicotine GUM* 2 MG PO PRN ×2 (12:40→17:22)
[2017-05-09] MEDS: traZODone TAB* 100 MG PO SCH (20:06)
[2017-05-10] MEDS: Acetaminophen TAB* 325 MG PO PRN (07:33)
[2017-05-10] MEDS: Vitamin THERAPEUTIC TAB PO SCH (07:33)
[2017-05-10] MEDS: Gabapentin CAP(*) 300 MG PO SCH (07:33)
[2017-05-10] MEDS: Paliperidone TAB* 6 MG PO SCH (07:33)
[2017-05-10] MEDS: Venlafaxine EXT RELEASE CAP* 75 MG PO SCH (07:33)
[2017-05-10] MEDS: Nicotine GUM* 2 MG PO PRN ×2 (07:33→11:28)
[2017-05-10 08:09] VITALS: BP 129/78
[2017-05-10] MEDS: Diazepam TAB(*) 5 MG PO PRN (10:33)
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
== END 2017-05-10 11:35 | DRG 750 ==
LOC: ED 02:01 → BSU 16:13
PROVIDERS: ADMIT Psychiatry & Neurology Psychiatry; ATTEND Psychiatry & Neurology Psychiatry
DX: F25.0 Schizoaffective disorder, bipolar type (principal); R45.851 Suicidal ideations; F17.210 Nicotine dependence, cigarettes, uncomplicated; F60.3 Borderline personality disorder; F43.10 Post-traumatic stress disorder, unspecified; Z79.899 Other long term (current) drug therapy; Z88.1 Allergy status to other antibiotic agents; Z88.8 Allergy status to other drugs, medicaments and biological substances; Z81.8 Family history of other mental and behavioral disorders; Z81.1 Family history of alcohol abuse and dependence
CPT/HCPCS: 36415; 80053; 80061; 80307; 80320; 80329; 81003; 81015; 82150; 83036; 83605; 83690; 84443; 84702; 85025; 87086; 90853; 93005; 99222; 99231; 99238; A9270-GY; G0480